=== PATIENT | male | born 1940 | race Caucasian/White ===

== ENCOUNTER 2016-11-18 18:04 | Inpatient (IN) | payer MEDICARE, BC ==
--- NOTE | 2016-11-18 19:25 | ER Document Report ---
ED Medical Screen (RME) - General Chief Complaint: Swelling Stated Complaint: ABDOMINAL AND LEG SWELLING Time Seen by Provider: 11/18/16 19:20 Information source: Patient Notes: 76-year-old male with past medical history as recorded on Eliquis who presents today with increased swelling to his legs extending to his abdomen over the last 2 weeks. He states shortness of breath. Denies any chest pain. No fevers , cough, nausea, vomiting, or diarrhea. On examination the patient has pitting edema to bilateral diffuse legs up to his lower abdomen. Heart rate 128. Decreased breath sounds bilaterally. TRAVEL OUTSIDE OF THE [place] IN LAST 30 DAYS: No - Related Data Allergies/Adverse Reactions: No Known Allergies Allergy (Verified 11/18/16 18:30) Past Medical History - Past Medical History Cardiac Medical History: Reports: Hx Hypertension Renal/ Medical History: Denies: Hx Peritoneal Dialysis Psychiatric Medical History: Reports: Hx Depression Physical Exam - Vital signs Vitals: Temp Pulse Resp BP Pulse Ox 97.4 F 128 H 20 146/91 H 94 11/18/16 18:36 11/18/16 18:36 11/18/16 18:36 11/18/16 18:36 11/18/16 18:36 Course - Vital Signs Vital signs: Temp Pulse Resp BP Pulse Ox 97.4 F 128 H 20 146/91 H 94 11/18/16 18:36 11/18/16 18:36 11/18/16 18:36 11/18/16 18:36 11/18/16 18:36
[2016-11-18 20:32] LABS: ABSOLUTE BASOPHILS # (AUTO) 0.1 10^3/uL (0.0-0.2); ABSOLUTE LYMPHOCYTES (AUTO) 0.9 10^3/uL (0.5-4.7); ABSOLUTE MONOCYTES (AUTO) 0.4 10^3/uL (0.1-1.4); BASOPHILS % (AUTO) 0.9 % (0-2); EOSINOPHILS % (AUTO) 0.3 % (0-6); HEMATOCRIT 43.1 % (37.9-51.0); HEMOGLOBIN 13.9 g/dL (13.5-17.0); HGB HCT DIFFERENCE -1.4; LYMPHOCYTES % (AUTO) 14.5 % (13-45); MEAN CORPUSCULAR HEMOGLOBIN 31.9 pg (27.0-33.4); MEAN CORPUSCULAR HGB CONC 32.3 g/dL (32.0-36.0); MEAN CORPUSCULAR VOLUME 99 fl (80-97); MONOCYTES % (AUTO) 6.6 % (3-13); RED BLOOD COUNT 4.37 10^6/uL (4.35-5.55); RED CELL DISTRIBUTION WIDTH 16.7 % (11.5-14.0); SEGMENTED NEUTROPHILS % (AUTO) 77.7 % (42-78); WHITE BLOOD COUNT 6.5 10^3/uL (4.0-10.5)
[2016-11-18 20:35] LABS: PROTHROMBIN TIME 14.9 SEC (11.4-15.4)
[2016-11-18 20:36] LABS: PARTIAL THROMBOPLASTIN TIME 33.7 SEC (23.5-35.8)
--- NOTE | 2016-11-18 20:51 | ER Document Report ---
ED General - General Chief Complaint: Swelling Stated Complaint: ABDOMINAL AND LEG SWELLING Time Seen by Provider: 11/18/16 19:20 Mode of Arrival: Ambulatory Information source: Patient TRAVEL OUTSIDE OF THE [place] IN LAST 30 DAYS: No - HPI Patient complains to provider of: edema, shortness of breath Onset: Other - 2 weeks Onset/Duration: Worse Quality of pain: Fullness, Pressure Severity: Mild Pain Level: 1 Associated symptoms: Shortness of breath Exacerbated by: Denies Relieved by: Denies Similar symptoms previously: Yes Recently seen / treated by doctor: No Notes: Patient is a 76-year-old male with a history of CHF, A. fib, COPD and hypertension, who is been off of most of his medications for at least the last 6 months to a year, who presents today complaining of lower extremity swelling and edema up to his abdomen, he reports fullness and pressure but no pain, he does report his legs hurt when he is ambulating as they are very heavy, just breath and dyspnea on exertion but denies any chest pain, no fever, no cough, cold or congestion - Related Data Allergies/Adverse Reactions: No Known Allergies Allergy (Verified 11/18/16 18:30) Past Medical History - General Information source: Patient - Social History Smoking Status: Current Every Day Smoker Chew tobacco use (# tins/day): No Frequency of alcohol use: None Drug Abuse: None Family History: Reviewed & Not Pertinent Patient has suicidal ideation: No Patient has homicidal ideation: No - Past Medical History Cardiac Medical History: Reports: Hx Hypertension Renal/ Medical History: Denies: Hx Peritoneal Dialysis Psychiatric Medical History: Reports: Hx Depression Review of Systems - Review of Systems Constitutional: No symptoms reported EENT: No symptoms reported Cardiovascular: Dyspnea, Edema Respiratory: Short of breath Gastrointestinal: No symptoms reported Genitourinary: No symptoms reported Male Genitourinary: No symptoms reported Musculoskeletal: No symptoms reported Skin: No symptoms reported Hematologic/Lymphatic: No symptoms reported Neurological/Psychological: No symptoms reported -: Yes All other systems reviewed and negative Physical Exam - Vital signs Vitals: Temp Pulse Resp BP Pulse Ox 97.4 F 128 H 20 146/91 H 94 11/18/16 18:36 11/18/16 18:36 11/18/16 18:36 11/18/16 18:36 11/18/16 18:36 Interpretation: Tachycardic - General General appearance: Alert, Other - Chronically ill-appearing In distress: None - HEENT Head: Normocephalic, Atraumatic Eyes: Normal Pupils: PERRL - Respiratory Respiratory status: No respiratory distress Chest status: Nontender Breath sounds: Rales Chest palpation: Normal - Cardiovascular Rhythm: Irregularly irregular, Tachycardia Heart sounds: Normal auscultation Murmur: No - Abdominal Inspection: Normal Distension: No distension Bowel sounds: Normal Tenderness: Nontender Organomegaly: No organomegaly - Genitourinary Scrotum: Swelling - Back Back: Normal, Nontender - Extremities General upper extremity: Normal inspection, Nontender, Normal color, Normal ROM , Normal temperature General lower extremity: Normal inspection, Nontender, Edema - Pitting edema up to patient's lower abdomen, Normal color, Normal ROM, Normal temperature, Normal weight bearing. No: Bakari's sign - Neurological Neuro grossly intact: Yes Cognition: Normal Orientation: AAOx4 [place] Coma Scale Eye Opening: Spontaneous Mayank Coma Scale Verbal: Oriented Mayank Coma Scale Motor: Obeys Commands Mayank Coma Scale Total: 15 Speech: Normal Motor strength normal: LUE, RUE, LLE, RLE Sensory: Normal - Psychological Associated symptoms: Normal affect, Normal mood - Skin Skin Temperature: Warm Skin Moisture: Dry Skin Color: Normal Skin irregularity: Erythema - Erythematous indurated excoriated skin increases of the inguinal area consistent with candidiasis Course - Re-evaluation Re-evalutation: 11/19/16 03:03 Patient was discussed with the hospitalist who agrees to admit to the [facility] for further evaluation and treatment - Vital Signs Vital signs: Temp Pulse Resp BP Pulse Ox 97.4 F 128 H 16 116/93 H 97 11/18/16 18:36 11/18/16 18:36 11/19/16 02:31 11/19/16 02:31 11/19/16 02:31 - Laboratory Result Diagrams: 11/18/16 19:40 11/18/16 19:40 Laboratory results interpreted by me: 11/18/16 11/18/16 11/18/16 19:13 19:40 19:40 MCV 99 H RDW 16.7 H Plt Count 131 L Potassium Chloride Carbon Dioxide BUN Creatinine Est GFR ( Amer) Est GFR (Non-Af Amer) Total Bilirubin Direct Bilirubin NT-Pro-B Natriuret Pep 59445 H Albumin Urine Blood MODERATE H Digoxin 11/18/16 19:40 MCV RDW Plt Count Potassium 3.3 L Chloride 96 L Carbon Dioxide 31 H BUN 30 H Creatinine 1.66 H Est GFR ( Amer) 49 L Est GFR (Non-Af Amer) 40 L Total Bilirubin 2.1 H Direct Bilirubin 1.1 H NT-Pro-B Natriuret Pep Albumin 3.4 L Urine Blood Digoxin 0.47 L - Diagnostic Test Radiology reviewed: Image reviewed, Reports reviewed - EKG Interpretation by Me Rate: Tachycardia Rhythm: A.Fib - Transfer of Care Care transferred to following provider: Dr. Ashby Critical Care Note - Critical Care Note Total time excluding time spent on procedures (mins): 60 Comments: Patient arrived in A. fib with a heart rate of 140, requiring medical treatment , multiple re-evaluations and admission to the hospitalist service Discharge - Discharge Clinical Impression: Atrial fibrillation with rapid ventricular response, Peripheral edema Condition: Fair Disposition: ADMITTED INPATIENT Admitting Provider: Hospitalist Unit Admitted: IMCU Referrals: ARSLAN MURRAY MD [Primary Care Provider] - Follow up as needed
[2016-11-18] MEDS ORDERED: DILTIAZEM HCL INJ 25 MG/5 ML VIAL IV ONE (20:54)
[2016-11-18 20:58] LABS: ALANINE AMINOTRANSFERASE 24 U/L (21-72); ALBUMIN 3.4 g/dL (3.5-5.0); ALKALINE PHOSPHATASE 97 U/L (38-126); ANION GAP 15 (5-19); ASPARTATE AMINO TRANSFERASE 25 U/L (17-59); BILIRUBIN,DIRECT 1.1 mg/dL (0.0-0.4); BILIRUBIN,TOTAL 2.1 mg/dL (0.2-1.3); BLOOD UREA NITROGEN 30 mg/dL (7-20); CALCIUM 8.9 mg/dL (8.4-10.2); CARBON DIOXIDE 31 mmol/L (22-30); CHLORIDE 96 mmol/L (98-107); CREATININE RESULT 1.66 mg/dL (0.52-1.25); DIGOXIN 0.47 ng/mL (0.8-2.0); GLUCOSE 84 mg/dL (75-110); POTASSIUM 3.3 mmol/L (3.6-5.0); SODIUM 142.4 mmol/L (137-145)
[2016-11-18 21:04] LABS: TROPONIN I 0.022 ng/mL
[2016-11-18 21:21] LABS: APPEARANCE,URINE CLEAR; BILIRUBIN,URINE NEGATIVE (NEGATIVE); GLUCOSE, URINE NEGATIVE (NEGATIVE); KETONES,URINE NEGATIVE (NEGATIVE); LEUKOCYTE ESTERASE,URINE NEGATIVE (NEGATIVE); NITRITE,URINE NEGATIVE (NEGATIVE); PROTEIN,URINE NEGATIVE (NEGATIVE); URINE SPECIFIC GRAVITY 1.008; UROBILINOGEN,URINE NEGATIVE mg/dL (<2.0)
--- NOTE | 2016-11-18 22:13 | EKG REPORT ---
SEVERITY:- ABNORMAL ECG - ATRIAL FIBRILLATION BORDERLINE LEFT AXIS DEVIATION CONSIDER ANTEROSEPTAL INFARCT NONSPECIFIC T ABNORMALITIES, LATERAL LEADS : Confirmed by: Alla Armando MD 18-Nov-2016 22:12:25
[2016-11-18] MEDS ORDERED: CEFTRIAXONE INJ 1000 MG VIAL IV ONE (22:56)
[2016-11-18] MEDS ORDERED: FUROSEMIDE INJ/PF 40 MG/4 ML SDV IV ONE (22:56)
[2016-11-19] MEDS ORDERED: DILTIAZEM HCL/D5W 125 ML IV PRN (01:47)
[2016-11-19 03:32] LABS: ADD ON TESTING BLD IN LAB ACKNOWLEDGE
[2016-11-19] MEDS ORDERED: DOCUSATE SODIUM 100 MG CAPSULE ONE (08:55)
[2016-11-19] MEDS ORDERED: FUROSEMIDE INJ/PF 40 MG/4 ML SDV ONE (08:55)
[2016-11-19] MEDS ORDERED: POTASSIUM CHLORIDE 20 MEQ/15 ML UDCUP ONE ×2 (08:56→12:12)
[2016-11-19] MEDS ORDERED: CEFTRIAXONE 1 GM/D5W RTU 1 GM/50 ML RTUPB IV ONE (08:57)
[2016-11-19] MEDS ORDERED: AZITHROMYCIN INJ 500 MG VIAL IV ONE (08:58)
[2016-11-19] MEDS ORDERED: HEPARIN SOD (PORCINE) 5,000 UNIT/ML 1 ML SYRINGE ONE (08:58)
[2016-11-19] MEDS ORDERED: METOPROLOL TARTRATE 50 MG TABLET ONE (09:15)
[2016-11-19] MEDS ORDERED: APIXABAN 2.5 MG TABLET ONE (09:19)
[2016-11-19] MEDS ORDERED: IPRATROPIUM/ALBUTEROL 0.5-2.5 MG/3 ML AMPUL NEB ONE (14:24)
--- NOTE | 2016-11-19 16:36 | HISTORY AND PHYSICAL E ---
History and Physical NAME: KATERINA FLORES : 1940 AGE: 76Y ADMITTED: 11/19/2016 ROOM: ED21 HOSPITALIST SERVICE DIAGNOSES: 1. Atrial fibrillation with rapid ventricular response, currently on Cardizem drip. 2. Bibasilar pneumonia. 3. Acute on chronic combined systolic and diastolic congestive heart failure. 4. Chronic noncompliance with medications. 5. Bilateral groin rash--neris?? 6. Large scrotal hernia. 7. Hypokalemia. 8. Acute renal failure. CHIEF COMPLAINT: Abdominal and leg swelling. PRIMARY CARE PROVIDER: Uncertain. HISTORY OF PRESENT ILLNESS: A 76-year-old male with known underlying combined diastolic and systolic congestive heart failure, with echocardiogram in 2014 revealing an ejection fraction of 15% who presents to the emergency room for above complaints. Patient has been discussed with the emergency room physician who evaluated the patient. Patient himself is extremely poor historian and appears to have poor insight at best into his medical issues. As best I can determine between review of emergency room physician notes, discussion with her, and discussion with patient, he has noted slowly progressive swelling, fullness, and pressure in his bilateral lower extremities for at least several weeks. Patient reportedly should be on metoprolol, lisinopril, Lasix, and Eliquis; has a history of chronic A-fib. However, he apparently has only been taking his Lasix for at least the last 6 months, if not longer. Denies nausea, vomiting, diarrhea, or dysuria, chest or abdominal pain, fever or chills. Was noted to be in atrial fibrillation with rapid ventricular response upon presentation. Cardizem drip was started and pulse is currently reasonably well controlled. Workup so far includes CBC with differential remarkable for a platelet count of 131,000. Unremarkable troponin. BNP elevated at 13,200. Chem-12 remarkable for a potassium of 3.3 with an estimated GFR of 40 mL/minute, with associated BUN and creatinine of 30 and 1.66 respectively. Review of prior labs reveals EGFR greater than 60 August of 2014. Total bilirubin is 2.1 with direct bilirubin 1.1. Digoxin level low at 0.47. Urinalysis remarkable for moderate blood, with 4 WBCs and 16 RBCs per high-powered field. Urine culture obtained by emergency room physician and has been sent. Portable AP chest x-ray reveals bibasilar airspace and interstitial opacities with right moderate pleural effusion, with small effusion on the left. EKG reveals atrial fibrillation, rate of 140, borderline left axis deviation, and nonspecific T-wave abnormalities in lateral leads. I have reviewed and compared to a prior tracing from August 07, 2014 revealing atrial fibrillation with a ventricular rate of 100, multiform PVCs, borderline left axis deviation, borderline T-wave abnormalities in diffuse leads with lateral leads also involved. Patient is currently resting quietly, without specific complaints other than being somewhat tired. Patient was hospitalized on our service August 06-2014 with final diagnoses including atrial fibrillation with rapid ventricular response, combined systolic and diastolic congestive heart failure, with ejection fraction of 15%. History and physical and discharge summary have been reviewed. SOCIAL HISTORY: He is a . Son lives with him. Retired. One pack of cigarettes per week. No alcohol use for many years. No illicit drug use. Surrogate health care decision maker is uncertain at this point in time. FAMILY HISTORY: Son reasonably healthy. Patient uncertain of the cause of of parents, and uncertain about the health status of siblings. SURGICAL HISTORY: 1. Hemorrhoidectomy. 2. Left inguinal herniorrhaphy. 3. Arthroscopic right knee surgery. REVIEW OF SYSTEMS: CONSTITUTIONAL: No fever or chills. EYES: Wears reading glasses. ENT: No hearing or swallowing difficulty. PULMONARY: Childhood asthma. States he still has increased difficulty breathing when it is foggy outside. Denied COPD per se. See history and present illness. CARDIOVASCULAR: See history and present illness. No history of pulmonary embolus or DVT. GASTROINTESTINAL: No current complaints or chronic gastric or biliary disease. HEMATOLOGIC: Easy bruising. MUSCULOSKELETAL: Joint pain from arthritis. PSYCHIATRIC: Mild occasional depression; denies suicidal or homicidal ideation. SKIN: No current complaints or chronic problems. NEUROLOGIC: No current complaints or prior seizure, stroke, TIA, or mini stroke. ENDOCRINE: Not diabetic. No underlying thyroid or lipid disease. GENITOURINARY: No current complaints or chronic problems, such as stones or recurrent infection. PHYSICAL EXAMINATION: VITAL SIGNS: Blood pressure 134/94, pulse 117 and slightly irregular, 99% saturation on room, respirations are 17 and unlabored. Temperature not recorded on the chart; skin feels normothermic; 6 feet 1 inches tall, 115.7 kg. BMI 33.7 kg/m2. GENERAL: On exam, he outwardly is an obese, chronically ill-appearing, male who appears approximately his stated age. Somewhat disheveled appearance. Awake, alert, pleasant, and cooperative, although somewhat fatigued in appearance. Rather talkative gentleman. Somewhat anxious, although no ervin agitation. SKIN: Warm and dry. Has what appears to be a candidal skin rash in bilateral groin region, and under his lower abdominal wall panniculus. No subcutaneous nodules palpated. Perhaps mildly hard of hearing to normal conversation. Tongue midline on protrusion, pink and slightly moist. EYES: Nettie conjunctivae. No scleral icterus. Pupils equal, round, and reactive to light and at 4 mm. NECK: Supple and nontender to gentle active and passive range of motion. LYMPHATIC: No palpable cervical or clavicular nodes. Neck and lymphatic exams limited by his body habitus. PSYCHIATRIC: Mildly anxious. No agitation. Poor insight at best into acute and chronic medical issues. LUNGS: Auscultation of the lungs reveals faint brief early expiratory wheezing bilaterally. Breath sounds are equal otherwise. HEART: Slightly irregular rate and rhythm, but without gallop, murmur, or rub. No carotid or abdominal aortic bruits. Patient has evidence of very mild bilateral symmetric, very slightly pitting thigh, calf, and ankle edema. Calf, ankle, and foot regions with the overall appearance of some shrinkage; patient has achieved good urine output with 60 mg of intravenous Lasix given by ER physician. Faintly palpable dorsalis pedis pulses. GENITOURINARY: Rather prominently swollen, but nontender scrotum. Patient states he has a known hernia. ABDOMEN: Soft, somewhat obese, nontender with positive bowel sounds. Not able to adequately evaluate abdomen for masses or organomegaly due to his body habitus. EXTREMITIES: Feet are slightly cool, but dry with acceptable capillary refill. No calf tenderness to compression. Gentle manipulation of the lower extremities fails to reveal any obvious evidence of injury or instability in knees, hips, or ankles. Patient has evidence of mild pink discoloration of the skin of both calves. However, there is no warmth or tenderness. NEUROLOGIC: Moves upper extremities grossly normally. Patellar reflexes are absent. Absent Babinski. Light touch is intact at feet. Dorsiflexion and plantarflexion of the feet 5/5 and symmetric. IMPRESSION: Elderly male, admitted for multiple above diagnoses. Patient is a FULL CODE. Strongly encouraged patient not to get out of bed without notifying staff to avoid a fall with injury. Standard CHF protocol, including parenteral Lasix and Cardiology consult. Trend troponins. Repeat echocardiogram. Pneumonia protocol, with p.r.n. Duonebs and daily Rocephin and intravenous Zithromax. Knee high SCDs and subcu heparin for DVT prophylaxis. For his groin skin rash, nystatin cream and/or powder. Scrotal hernia will be followed clinically. Potassium replacement for his hypokalemia with followup chemistry. Acute renal failure will be followed with repeat chemistry. Due to his underlying severe congestive heart failure, will forgo IV fluids at this point in time. Patient will certainly be in the hospital more than 2 midnights. Seventy four minutes spent in evaluation and management of patient. DICTATING PHYSICIAN: DORYS GARCIA M.D. [id number] PHY#: [id number] ID: [id number] JOB#: [id number] ACCT: [id number] cc:DORYS GARCIA M.D. > MTDD
[2016-11-19] MEDS ORDERED: IPRATROPIUM/ALBUTEROL 0.5-2.5 MG/3 ML AMPUL NEB PRN (18:13)
[2016-11-19] MEDS ORDERED: DILTIAZEM HCL/D5W 125 MG/125 ML RTUINJ IV PRN (18:15)
[2016-11-19] MEDS ORDERED: ACETAMINOPHEN 650 MG SUPP.RECT PR PRN (18:15)
[2016-11-19] MEDS ORDERED: HEPARIN SOD (PORCINE) 5,000 UNIT/ML 1 ML SYRINGE SUBCUT SCH (22:00)
[2016-11-19] MEDS: APIXABAN 2.5 MG TABLET PO SCH (23:21)
[2016-11-19] MEDS: METOPROLOL TARTRATE 50 MG TABLET PO SCH (23:26)
[2016-11-20] MEDS ORDERED: FUROSEMIDE INJ/PF 40 MG/4 ML SDV IV SCH (08:00)
[2016-11-20 08:21] LABS: ABSOLUTE BASOPHILS # (AUTO) 0.1 10^3/uL (0.0-0.2); ABSOLUTE EOSINOPHILS # (AUTO) 0.1 10^3/uL (0.0-0.6); ABSOLUTE LYMPHOCYTES (AUTO) 1.2 10^3/uL (0.5-4.7); ABSOLUTE MONOCYTES (AUTO) 0.6 10^3/uL (0.1-1.4); ABSOLUTE NEUT (AUTO) 4.3 10^3/uL (1.7-8.2); BASOPHILS % (AUTO) 0.9 % (0-2); EOSINOPHILS % (AUTO) 1.4 % (0-6); HEMATOCRIT 42.4 % (37.9-51.0); HEMOGLOBIN 13.6 g/dL (13.5-17.0); HGB HCT DIFFERENCE -1.6; LYMPHOCYTES % (AUTO) 18.6 % (13-45); MEAN CORPUSCULAR HEMOGLOBIN 31.7 pg (27.0-33.4); MEAN CORPUSCULAR VOLUME 99 fl (80-97); MONOCYTES % (AUTO) 9.5 % (3-13); RED BLOOD COUNT 4.28 10^6/uL (4.35-5.55); RED CELL DISTRIBUTION WIDTH 16.5 % (11.5-14.0); SEGMENTED NEUTROPHILS % (AUTO) 69.6 % (42-78); WHITE BLOOD COUNT 6.2 10^3/uL (4.0-10.5)
[2016-11-20] MEDS: CEFTRIAXONE 1 GM/D5W RTU 1 GM/50 ML RTUPB IV SCH (08:28)
--- NOTE | 2016-11-20 08:29 | PDOC PROGRESS REPORT ---
Subjective Progress Note for:: 11/20/16 Subjective:: Pt is breathing better. Denies CP, increasing SOB, diarrhea, N/V, chills or fever. Feels generally weak. Difficulty walking. Physical Exam Vital Signs: Temp Pulse Resp BP Pulse Ox 97.9 F 128 H 15 120/85 98 11/19/16 19:20 11/18/16 18:36 11/20/16 07:41 11/20/16 07:41 11/20/16 07:41 General appearance: PRESENT: no acute distress, cooperative Head exam: PRESENT: normocephalic Eye exam: PRESENT: EOMI Mouth exam: PRESENT: moist, neck supple Neck exam: ABSENT: JVD Respiratory exam: PRESENT: decreased breath sounds - R lower lung field, rhonchi - occasionally B/L. ABSENT: wheezes Cardiovascular exam: PRESENT: irregular rhythm. ABSENT: gallop GI/Abdominal exam: PRESENT: normal bowel sounds, soft. ABSENT: distended Extremities exam: PRESENT: other - trace edema Neurological exam: PRESENT: alert, awake Skin exam: PRESENT: dry, warm. ABSENT: cyanosis Results Laboratory Results: 11/19/16 06:55 11/19/16 06:55 WBC 6.2 RBC 4.28 L Hgb 13.6 Hct 42.4 MCV 99 H MCH 31.7 MCHC 32.0 RDW 16.5 H Plt Count 123 L Seg Neutrophils % 69.6 Lymphocytes % 18.6 Monocytes % 9.5 Eosinophils % 1.4 Basophils % 0.9 Absolute Neutrophils 4.3 Absolute Lymphocytes 1.2 Absolute Monocytes 0.6 Absolute Eosinophils 0.1 Absolute Basophils 0.1 Impressions: Chest X-Ray 11/18/16 19:24 IMPRESSION: Bibasilar airspace and interstitial opacities. Right moderate pleural effusion, small effusion on the left. Assessment & Plan - Diagnosis (1) Pneumonia Qualifiers: Pneumonia type: due to unspecified organism Laterality: bilateral Lung location: lower lobe of lung Qualified Code(s): J18.9 - Pneumonia, unspecified organism Is this a current diagnosis for this admission?: Yes (2) Pleural effusion Is this a current diagnosis for this admission?: Yes (3) Atrial fibrillation with rapid ventricular response Is this a current diagnosis for this admission?: Yes (4) Acute CHF (congestive heart failure) Qualifiers: Congestive heart failure type: combined Qualified Code(s): I50.41 - Acute combined systolic (congestive) and diastolic (congestive) heart failure Is this a current diagnosis for this admission?: Yes (5) Essential hypertension Is this a current diagnosis for this admission?: Yes (6) Depression Qualifiers: Depression Type: unspecified Qualified Code(s): F32.9 - Major depressive disorder, single episode, unspecified Is this a current diagnosis for this admission?: Yes - Time Time Spent with patient: 25-34 minutes - Plan Summary Plan Summary: Begin oral cardizem. Cont metoprolol. Wean IV cardizem to off. Cont. diuretics and antibx. Monitor electrolytes.
[2016-11-20] MEDS ORDERED: DILTIAZEM HCL 30 MG TABLET PO ONE (08:45)
[2016-11-20] MEDS ORDERED: AZITHROMYCIN 500 MG in DEXTROSE 5%-WATER 250 ML IV SCH (10:00)
[2016-11-20] MEDS: METOPROLOL TARTRATE 50 MG TABLET PO SCH (11:15)
[2016-11-20] MEDS: DOCUSATE SODIUM 100 MG CAPSULE PO SCH (11:16)
[2016-11-20] MEDS: APIXABAN 2.5 MG TABLET PO SCH ×2 (11:17→21:52)
[2016-11-20] MEDS: NYSTATIN CREAM 15 GM TP SCH ×2 (11:28→18:31)
[2016-11-20] MEDS: DILTIAZEM HCL 30 MG TABLET PO SCH ×2 (12:24→17:33)
--- NOTE | 2016-11-20 13:41 | XCELERA REPORT ---
[address] [address] Transthoracic Echocardiogram Report Name: KATERINA FLORES Age: 76 yrs Gender: Male : 1940 Patient Status: Inpatient Patient Location: \S\19\S\A Study Date: 11/20/2016 11:03 AM Height: 73 in Weight: 255 lb BSA: 2.4 m2 Procedure: A complete two-dimensional transthoracic echocardiogram was performed (2D, M-mode, spectral and color flow Doppler). The study was technically adequate with some images being suboptimal in quality. Reason For Study: ACS, CHF Ordering Physician: DORYS GARCIA Performed By: Lacey Nolan Interpretation Summary Left ventricular systolic function is severely reduced. The Ejection Fraction estimate is <20% The left ventricle is moderately dilated. There is mild concentric left ventricular hypertrophy. There is severe global hypokinesis of the left ventricle. Doppler measurements suggest pseudonormalized left ventricular relaxation, which is associated with grade II/IV or mild to moderate diastolic dysfunction The right ventricle is moderately dilated. The right ventricular systolic function is moderately reduced. The right atrium is severely dilated. The left atrium is severely dilated. There is a mild amount of mitral regurgitation There is no mitral valve stenosis. No aortic regurgitation is present. There is no aortic valve stenosis There is a mild to moderate amount of tricuspid regurgitation There is mild to moderate pulmonary hypertension by echo Right ventricular systolic pressure is estimated to be elevated at 40- 50mmHg. The aortic root is not well visualized but is probably normal size. The inferior vena cava appeared normal and decreased > 50% with respiration (RAP 5-10 mmHg) There is no pericardial effusion. MMode/2D Measurements \T\ Calculations RVDd: 4.0 cm LVIDd: 6.9 cm FS: 6.4 % EPSS: 1.3 cm IVSd: 1.2 cm LVIDs: 6.5 cm EDV(Teich): 250.3 ml LVPWd: 1.3 cm ESV(Teich): 215.3 ml EF(Teich): 14.0 % Ao root diam: 3.8 cm LVOT diam: 2.6 cm Ao root area: 11.1 cm2 LVOT area: 5.3 cm2 LA dimension: 5.2 cm Doppler Measurements \T\ Calculations MV E max teddy: MV P1/2t max teddy: Ao V2 max: LV V1 max P.1 cm/sec 111.6 cm/sec 139.4 cm/sec 3.7 mmHg MV P1/2t: 56.2 msec Ao max PG: LV V1 max: MVA(P1/2t): 3.9 cm2 7.8 mmHg 95.8 cm/sec MV dec slope: CHIKIS(V,D): 3.6 cm2 581.5 cm/sec2 PA V2 max: TR max teddy: 81.0 cm/sec 322.5 cm/sec PA max P.6 mmHgTR max P.6 mmHg Left Ventricle The left ventricle is moderately dilated. There is mild concentric left ventricular hypertrophy. Left ventricular systolic function is severely reduced. The Ejection Fraction estimate is <20%. Doppler measurements suggest pseudonormalized left ventricular relaxation, which is associated with grade II/IV or mild to moderate diastolic dysfunction. There is severe global hypokinesis of the left ventricle. Right Ventricle The right ventricle is moderately dilated. There is normal right ventricular wall thickness. The right ventricular systolic function is moderately reduced. Atria The right atrium is severely dilated. The left atrium is severely dilated. Interarterial septum not well visualized and not well dopplered. Cannot comment on ASD/PFO presence. Mitral Valve The mitral valve leaflets are sclerotic, but show no functional abnormalities. There is no mitral valve stenosis. There is a mild amount of mitral regurgitation. Aortic Valve The aortic valve is not well visualized secondary to technical limitations. The aortic valve opens well. There is no aortic valve stenosis. No aortic regurgitation is present. Tricuspid Valve The tricuspid valve is not well visualized, but is grossly normal. There is no tricuspid stenosis. There is a mild to moderate amount of tricuspid regurgitation. There is mild to moderate pulmonary hypertension by echo. Right ventricular systolic pressure is estimated to be elevated at 40- 50mmHg. Pulmonic Valve The pulmonic valve is not well visualized. Great Vessels The aortic root is not well visualized but is probably normal size. The inferior vena cava appeared normal and decreased > 50% with respiration (RAP 5-10 mmHg). Effusions There is no pericardial effusion. : DORYS GARCIA > Ashtyn Rubio
[2016-11-20 17:13] LABS: BLOOD UREA NITROGEN 31 mg/dL (7-20); CALCIUM 8.9 mg/dL (8.4-10.2); CREATININE RESULT 1.42 mg/dL (0.52-1.25); GLUCOSE 84 mg/dL (75-110)
[2016-11-20 17:17] LABS: POTASSIUM 2.9 mmol/L (3.6-5.0)
[2016-11-20 17:18] LABS: ALANINE AMINOTRANSFERASE 25 U/L (21-72); ALBUMIN 3.1 g/dL (3.5-5.0); ALKALINE PHOSPHATASE 87 U/L (38-126); ANION GAP 11 (5-19); ASPARTATE AMINO TRANSFERASE 25 U/L (17-59); CARBON DIOXIDE 33 mmol/L (22-30); CHLORIDE 97 mmol/L (98-107); SODIUM 141.3 mmol/L (137-145)
[2016-11-20 17:19] LABS: BILIRUBIN,DIRECT 1.2 mg/dL (0.0-0.4); BILIRUBIN,TOTAL 2.3 mg/dL (0.2-1.3); TOTAL PROTEIN 6.9 g/dL (6.3-8.2)
[2016-11-20] MEDS: FUROSEMIDE INJ/PF 40 MG/4 ML SDV IV SCH (17:32)
[2016-11-20] MEDS ORDERED: DIGOXIN 0.25 MG TABLET PO ONE (17:44)
--- NOTE | 2016-11-20 17:44 | PDOC CONSULTATION ---
Consultation Consult Date: 11/19/16 Attending physician:: KARTIK WRIGHT Consult reason:: Congestive heart failure, atrial fibrillation History of Present Illness Admission Date/PCP: 11/19/16 03:17 ARSLAN MURRAY MD Patient complains of: Shortness of breath, fatigue and tiredness History of Present Illness: KATERINA FLORES is a 76 year old male, who was seen yesterday in the emergency room when he was in bed 21. Because of difficulty with STYLIGHT system, patient fell off my list although orders were entered handwritten, when patient was seen yesterday. Patient had presented to the emergency room with progressive increased shortness of breath, fatigue and tiredness. He was noted to be in severe congestive heart failure. He was also noted to be hypoxemic on oxygen saturation monitor. He was noted to have atrial fibrillation with rapid ventricular response. I was asked to evaluate him and help with management. A 2D echo was ordered. Patient was already started on IV Lasix. In gives history of long-standing irregular heartbeat. Review of records shows that patient had atrial fibrillation in 2015 by EKGs. Patient also was noted to have severe systolic dysfunction along with significant diastolic dysfunction on an echocardiogram at that time. Patient has noted improvement in his symptoms since his visit to the emergency room. Past Medical History Cardiac Medical History: Reports: Atrial Fibrillation - Patient however not on chronic anticoagulation., Hypertension Psychiatric Medical History: Reports: Depression Past Surgical History Past Surgical History: Reports: Other - Left inguinal hernia surgery, arthroscopic surgery of the right knee. Social History Information Source: Patient Smoking Status: Current Every Day Smoker Number of Years Smokin Frequency of Alcohol Use: None Hx Recreational Drug Use: No Hx Prescription Drug Abuse: No - Advance Directive Resuscitation Status: Full Code Family History Family History: Reviewed & Not Pertinent, Hypertension Parental Family History Reviewed: Yes Children Family History Reviewed: Yes Sibling(s) Family History Reviewed.: Yes Medication/Allergy Home Medications: No Home Medications 11/19/16 Allergies/Adverse Reactions: No Known Allergies Allergy (Verified 11/18/16 18:30) Review of Systems Review of Systems: Please see history of present illness and past medical history as wall. Constitutional: No fever or chills reported. Noted increased fatigue and tiredness. Head : No recent chronic headaches, recent head injury. Eyes: No recent eye pain, diplopia, redness, discharge, acute visual changes. Ears: No recent chronic ear pain, acute hearing loss, ear discharge. Oral cavity: No recent ulcerations, bleeding, oral cavity discomfort. Neck: No recent acute neck pain reported. Hematologic: No recent easy bruising or bleeding or hematologic malignancy reported. Lymphatic: No recent lymphatic malignancy, chronic lymphadenopathy reported yet Cardiovascular system review: See history of present illness. Respiratory system review: No recent chronic cough, hemoptysis, blood clots in the lungs reported. Increasing shortness of breath on exertion and pedal edema. Gives history of childhood asthma. Gastrointestinal system review: Negative for any recent acute or chronic abdominal pain, hematemesis, melena, recent change in bowel habits. History of inguinal hernia Genitourinary system review: No recent acute or chronic hematuria, flank pain, UTI etc. reported. Skin system review: Negative for any recent abnormal bruising, no rash, no pruritus reported. Neurologic: No prior history of strokes, questionable history of mini strokes but no definite history of strokes. Psychologic: No history of major psychosis or major depression reported. Musculoskeletal: Minor aches and pains reported. No acute joint swelling reported. Endocrine: No recent polyuria, polydipsia, recent heat or cold intolerance. Physical Exam Vital Signs: Temp Pulse Resp BP Pulse Ox 97.4 F 73 20 109/81 94 11/20/16 16:03 11/20/16 16:15 11/20/16 16:03 11/20/16 16:03 11/20/16 16:03 Exam: GENERAL: well-nourished and in no acute distress. Alert and oriented x3 HEAD: Atraumatic, normocephalic. EYES: Pupils equal round and reactive to light, extraocular movements intact, sclera anicteric, conjunctiva are normal. ENT: TMs normal, nares patent, oropharynx clear without exudates. Moist mucous membranes. No oral ulcerations or bleeding gums noted NECK: supple without lymphadenopathy. Trachea is central. No cervical or axillary lymphadenopathy noted. Carotids are 2+, JVD 12-14 cm LUNGS: Respiration seems nonlabored, bibasilar fine crackles noted up to 1/[address] up. No wheezes rales or rhonchi noted. No significant dullness noted on percussion. CHEST: Palpation of the chest wall shows no significant chest wall tenderness. No other significant abnormalities noted. 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 ABDOMEN: Soft, no significant tenderness appreciated, normoactive bowel sounds. No guarding, no rebound. No rigidity noted No masses appreciated. Scrotum vey swollen. EXTREMITIES: Pedal pulses are 1-2+, no calf tenderness noted. No clubbing or cyanosis. 3+ + pedal edema noted NEUROLOGICAL: Focused neurological exam showed no significant neurologic deficit. Normal speech, no focal weakness appreciated. PSYCH: Normal mood, normal affect. Judgment and insight within normal limits. SKIN: No significant ecchymosis, rash, ulcerations or signs of pruritus noted. MUSCULOSKELETAL EXAM: No significant joint swelling noted. Results Laboratory Results: 11/19/16 06:55 11/19/16 06:55 11/19/16 11/19/16 06:55 06:55 WBC 6.2 RBC 4.28 L Hgb 13.6 Hct 42.4 MCV 99 H MCH 31.7 MCHC 32.0 RDW 16.5 H Plt Count 123 L Seg Neutrophils % 69.6 Lymphocytes % 18.6 Monocytes % 9.5 Eosinophils % 1.4 Basophils % 0.9 Absolute Neutrophils 4.3 Absolute Lymphocytes 1.2 Absolute Monocytes 0.6 Absolute Eosinophils 0.1 Absolute Basophils 0.1 Sodium 141.3 Potassium 2.9 L* Chloride 97 L Carbon Dioxide 33 H Anion Gap 11 BUN 31 H Creatinine 1.42 H Est GFR ( Amer) 58 L Est GFR (Non-Af Amer) 48 L Glucose 84 Calcium 8.9 Total Bilirubin 2.3 H AST 25 ALT 25 Alkaline Phosphatase 87 Total Protein 6.9 Albumin 3.1 L 11/19/16 11/19/16 06:55 13:34 Troponin I 0.028 0.028 EKG Comments: Atrial fibrillation with rapid ventricular response. Minor nonspecific T-wave changes noted. Impressions: Chest X-Ray 11/18/16 19:24 IMPRESSION: Bibasilar airspace and interstitial opacities. Right moderate pleural effusion, small effusion on the left. Status: Image reviewed by me - Chest x-ray reviewed by me shows cardiomegaly, bilateral pleural effusion right more than left and pulmonary venous congestion. Findings consistent with CHF. Assessment & Plan - Diagnosis (1) Acute on chronic systolic CHF (congestive heart failure) Is this a current diagnosis for this admission?: Yes (2) Atrial fibrillation with rapid ventricular response Is this a current diagnosis for this admission?: Yes (3) Essential hypertension Is this a current diagnosis for this admission?: Yes (4) Peripheral edema Is this a current diagnosis for this admission?: Yes (5) Pleural effusion Is this a current diagnosis for this admission?: Yes - Notes Notes: Acute on chronic systolic CHF: Patient has history of severe systolic dysfunction and also significant diastolic dysfunction. This seems to be significant worsening recently of CHF symptoms. At this point would recommend aggressive diuresis, PETR inhibitor, beta-keya, digoxin therapy. Would also repeat an 2D echocardiogram to evaluate as to any other cause for acute exacerbation. Most likely precipitated by atrial fibrillation with rapid ventricular response and volume overload. Atrial fibrillation with rapid ventricular response: Patient has history of chronic atrial fibrillation. May need to revisit chronic anticoagulation and recommend this again. For rate control will recommend to digoxin and beta- keya. Hypertension: Reasonably well controlled. Blood pressure goal in this patient is 135/85 or less. This was discussed with the patient. Currently blood pressure under reasonable control. Better medication for this patient are PETR inhibitor/ARB/beta keya etc. discussed side effects of uncontrolled hypertension and also severe hypotension Peripheral edema: Mostly related to CHF. Will recommend ruling out hypoalbuminemia. Bilateral pleural effusion: Related to CHF. Patient's medical regimen reviewed. Will gradually escalate management. Patient may eventually need to be considered for prophylactic defibrillator placement especially if his EF is still low. CODE STATUS was discussed, patient remains full code. Surrogate decision-maker unchanged. Multiple medical problems were addressed. - Time Time Spent: 50 to 70 Minutes - CODE STATUS was discussed, patient remains full code. Surrogate decision-maker unchanged. Multiple medical problems were addressed. More than 50% of the time spent coordinating care, discussing management plans with involved caregivers. Management plans discussed with involved personnels. Medical decision making was of moderate to high complexity , patient's has multiple severe comorbidities. Medications reviewed and adjusted accordingly: Yes
--- NOTE | 2016-11-20 17:47 | PDOC PROGRESS REPORT ---
Subjective Progress Note for:: 11/20/16 Subjective:: Breathing better. No CP, nausea, vomiting, chills or fever. No diarrhea. HR is controlled in 70s as reported. Echo report discussed. Still has significant edema and possibly ascitis, significant scrotal edema noted. Telemetry strip showed atrial fibrillation better controlled heart rate. Physical Exam Vital Signs: Temp Pulse Resp BP Pulse Ox 97.4 F 73 20 109/81 94 11/20/16 16:03 11/20/16 16:15 11/20/16 16:03 11/20/16 16:03 11/20/16 16:03 Exam: GENERAL: well-nourished and in no acute distress. Alert and oriented x3. Intermittent confusion reported by the nurses. HEAD: Atraumatic, normocephalic. EYES: Pupils equal round and reactive to light, extraocular movements intact, sclera anicteric, conjunctiva are normal. ENT: TMs normal, nares patent, oropharynx clear without exudates. Moist mucous membranes. No oral ulcerations or bleeding gums noted NECK: supple without lymphadenopathy. Trachea is central. No cervical or axillary lymphadenopathy noted. Carotids are 2+, JVD 12-14 cm LUNGS: Respiration seems nonlabored, bibasilar fine crackles. No wheezes rales or rhonchi noted. Mild right dullness noted on percussion. CHEST: Palpation of the chest wall shows no significant chest wall tenderness. No other significant abnormalities noted. 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 ABDOMEN: Soft, no significant tenderness appreciated, normoactive bowel sounds. No guarding, no rebound. No rigidity noted No masses appreciated. Scrotum vey swollen. EXTREMITIES: Pedal pulses are 1-2+, no calf tenderness noted. No clubbing or cyanosis. 3+ + pedal edema noted NEUROLOGICAL: Focused neurological exam showed no significant neurologic deficit. Normal speech, no focal weakness appreciated. PSYCH: Normal mood, normal affect. Judgment and insight within normal limits. SKIN: No significant ecchymosis, rash, ulcerations or signs of pruritus noted. MUSCULOSKELETAL EXAM: No significant joint swelling noted. Results Laboratory Results: 11/19/16 06:55 11/19/16 11/19/16 06:55 06:55 WBC 6.2 RBC 4.28 L Hgb 13.6 Hct 42.4 MCV 99 H MCH 31.7 MCHC 32.0 RDW 16.5 H Plt Count 123 L Seg Neutrophils % 69.6 Lymphocytes % 18.6 Monocytes % 9.5 Eosinophils % 1.4 Basophils % 0.9 Absolute Neutrophils 4.3 Absolute Lymphocytes 1.2 Absolute Monocytes 0.6 Absolute Eosinophils 0.1 Absolute Basophils 0.1 Sodium 141.3 Potassium 2.9 L* Chloride 97 L Carbon Dioxide 33 H Anion Gap 11 BUN 31 H Creatinine 1.42 H Est GFR ( Amer) 58 L Est GFR (Non-Af Amer) 48 L Glucose 84 Calcium 8.9 Total Bilirubin 2.3 H AST 25 ALT 25 Alkaline Phosphatase 87 Total Protein 6.9 Albumin 3.1 L 11/19/16 11/19/16 06:55 13:34 Troponin I 0.028 0.028 Impressions: Chest X-Ray 11/18/16 19:24 IMPRESSION: Bibasilar airspace and interstitial opacities. Right moderate pleural effusion, small effusion on the left. Assessment & Plan - Diagnosis (2) Atrial fibrillation with rapid ventricular response Is this a current diagnosis for this admission?: Yes (3) Essential hypertension Is this a current diagnosis for this admission?: Yes (5) Pleural effusion Is this a current diagnosis for this admission?: Yes - Notes Notes: Acute on chronic systolic CHF: Patient has history of severe systolic dysfunction and also significant diastolic dysfunction. This seems to be significant worsening recently of CHF symptoms.Patient being placed on spironolactone, digoxin, switch to metoprolol succinate. Stop diltiazem in view of severe LV systolic dysfunction. Atrial fibrillation with rapid ventricular response: Patient has history of chronic atrial fibrillation. May need to revisit chronic anticoagulation and recommend this again. For rate control will recommend to digoxin and beta- keya. Patient instituted on these. Hypertension: Reasonably well controlled. Blood pressure goal in this patient is 135/85 or less. This was discussed with the patient. Currently blood pressure under reasonable control. Better medication for this patient are PETR inhibitor/ARB/beta keya etc. discussed side effects of uncontrolled hypertension and also severe hypotension Peripheral edema: Mostly related to CHF. Will recommend ruling out hypoalbuminemia. Bilateral pleural effusion: Related to CHF. Patient's medical regimen reviewed. Will gradually escalate management. Patient may eventually need to be considered for prophylactic defibrillator placement especially if his EF is still low. CODE STATUS was discussed, patient remains full code. Surrogate decision-maker patient's son. Multiple medical problems were addressed. Echocardiogram was ordered. - Time Time with patient: Greater than 35 minutes - CODE STATUS was discussed, patient remains full code. Surrogate decision-maker patient's son. Multiple medical problems were addressed. More than 50% of the time spent coordinating care, discussing management plans with involved caregivers. Management plans discussed with involved personnels. Medical decision making was of moderate to high complexity, patient's has multiple comorbidities. Medications reviewed and adjusted accordingly: Yes
[2016-11-20] MEDS: POTASSI CL 20 MEQ/50 ML RIDER 50 ML IV SCH ×3 (20:18→23:30)
[2016-11-20] MEDS: METOPROLOL SUCCINATE 50 MG TAB.SR.24H PO SCH (21:52)
[2016-11-21] MEDS: FUROSEMIDE INJ/PF 40 MG/4 ML SDV IV SCH (05:32)
[2016-11-21 06:57] LABS: HEMATOCRIT 41.1 % (37.9-51.0); HEMOGLOBIN 13.4 g/dL (13.5-17.0); HGB HCT DIFFERENCE -0.9; MEAN CORPUSCULAR HEMOGLOBIN 32.7 pg (27.0-33.4); MEAN CORPUSCULAR HGB CONC 32.6 g/dL (32.0-36.0); MEAN CORPUSCULAR VOLUME 100 fl (80-97); RED BLOOD COUNT 4.11 10^6/uL (4.35-5.55); RED CELL DISTRIBUTION WIDTH 16.4 % (11.5-14.0); WHITE BLOOD COUNT 5.8 10^3/uL (4.0-10.5)
[2016-11-21 07:19] LABS: ANION GAP 11 (5-19); BLOOD UREA NITROGEN 28 mg/dL (7-20); CALCIUM 8.5 mg/dL (8.4-10.2); CARBON DIOXIDE 37 mmol/L (22-30); CHLORIDE 95 mmol/L (98-107); CREATININE RESULT 1.21 mg/dL (0.52-1.25); GLUCOSE 86 mg/dL (75-110); SODIUM 143.2 mmol/L (137-145)
[2016-11-21 07:32] LABS: POTASSIUM 2.8 mmol/L (3.6-5.0)
[2016-11-21] MEDS: CEFTRIAXONE 1 GM/D5W RTU 1 GM/50 ML RTUPB IV SCH (08:05)
--- NOTE | 2016-11-21 09:19 | PDOC PROGRESS REPORT ---
Subjective Progress Note for:: 11/21/16 Subjective:: Breathing better. No CP, nausea, vomiting, chills or fever. No diarrhea. HR is controlled in 70s as reported. Physical Exam Vital Signs: Temp Pulse Resp BP Pulse Ox 97.2 F 115 H 19 119/58 L 92 11/21/16 07:33 11/21/16 07:33 11/21/16 07:33 11/21/16 07:33 11/21/16 07:33 Intake & Output 11/20/16 11/21/16 11/22/16 06:59 06:59 06:59 Intake Total 281 Output Total 1250 Balance -969 Weight 113.3 kg 112.3 kg General appearance: PRESENT: no acute distress, cooperative Head exam: PRESENT: normocephalic Eye exam: PRESENT: EOMI Mouth exam: PRESENT: moist, neck supple Neck exam: ABSENT: JVD Respiratory exam: PRESENT: clear to auscultation kiera - anteriorly. ABSENT: rhonchi, wheezes Cardiovascular exam: PRESENT: irregular rhythm. ABSENT: gallop GI/Abdominal exam: PRESENT: soft. ABSENT: distended, tenderness Extremities exam: PRESENT: +1 edema Neurological exam: PRESENT: alert, awake, oriented to situation Skin exam: PRESENT: dry, warm. ABSENT: cyanosis Results Laboratory Results: 11/21/16 06:02 11/21/16 06:02 11/19/16 11/20/16 11/21/16 06:55 17:58 06:02 WBC 5.8 RBC 4.11 L Hgb 13.4 L Hct 41.1 MCV 100 H MCH 32.7 MCHC 32.6 RDW 16.4 H Plt Count 117 L Sodium 141.3 Potassium 2.9 L* 2.7 L* Chloride 97 L Carbon Dioxide 33 H Anion Gap 11 BUN 31 H Creatinine 1.42 H Est GFR ( Amer) 58 L Est GFR (Non-Af Amer) 48 L Glucose 84 Calcium 8.9 Total Bilirubin 2.3 H AST 25 ALT 25 Alkaline Phosphatase 87 Total Protein 6.9 Albumin 3.1 L 11/21/16 06:02 WBC RBC Hgb Hct MCV MCH MCHC RDW Plt Count Sodium 143.2 Potassium 2.8 L* Chloride 95 L Carbon Dioxide 37 H Anion Gap 11 BUN 28 H Creatinine 1.21 Est GFR ( Amer) > 60 Est GFR (Non-Af Amer) 58 L Glucose 86 Calcium 8.5 Total Bilirubin AST ALT Alkaline Phosphatase Total Protein Albumin 11/19/16 11/19/16 06:55 13:34 Troponin I 0.028 0.028 Impressions: Chest X-Ray 11/18/16 19:24 IMPRESSION: Bibasilar airspace and interstitial opacities. Right moderate pleural effusion, small effusion on the left. Assessment & Plan - Diagnosis (1) Pneumonia Qualifiers: Pneumonia type: due to unspecified organism Laterality: bilateral Lung location: lower lobe of lung Qualified Code(s): J18.9 - Pneumonia, unspecified organism Is this a current diagnosis for this admission?: Yes (2) Pleural effusion Is this a current diagnosis for this admission?: Yes (3) Atrial fibrillation with rapid ventricular response Is this a current diagnosis for this admission?: Yes (4) Acute CHF (congestive heart failure) Qualifiers: Congestive heart failure type: combined Qualified Code(s): I50.41 - Acute combined systolic (congestive) and diastolic (congestive) heart failure Is this a current diagnosis for this admission?: Yes (5) Essential hypertension Is this a current diagnosis for this admission?: Yes (6) Depression Qualifiers: Depression Type: unspecified Qualified Code(s): F32.9 - Major depressive disorder, single episode, unspecified Is this a current diagnosis for this admission?: Yes - Time Time Spent with patient: 25-34 minutes - Plan Summary Plan Summary: Consult cardiology for cardiomyopathy. Cont. b-keya. Digoxin added. Replace K and recheck electrolytes in am. D/C cardizem drip. Shift to oral antibiotics. Decrease lasix. Cont. other meds and supportive care.
[2016-11-21] MEDS: POTASSIUM CHLORIDE 20 MEQ/50 ML RTU IV SCH ×4 (09:22→16:13)
[2016-11-21] MEDS: METOPROLOL SUCCINATE 50 MG TAB.SR.24H PO SCH ×2 (09:23→21:34)
[2016-11-21] MEDS: DOCUSATE SODIUM 100 MG CAPSULE PO SCH ×2 (09:23→17:28)
[2016-11-21] MEDS: NYSTATIN CREAM 15 GM TP SCH ×2 (09:23→17:28)
[2016-11-21] MEDS: DIGOXIN 0.125 MG TABLET PO SCH (09:24)
[2016-11-21] MEDS: APIXABAN 2.5 MG TABLET PO SCH ×2 (09:25→21:32)
[2016-11-21] MEDS: LEVOFLOXACIN 750 MG TABLET PO SCH (09:27)
[2016-11-21] MEDS: SPIRONOLACTONE 25 MG TABLET PO SCH (09:28)
[2016-11-21 09:56] LABS: MAGNESIUM 2.3 mg/dL (1.6-2.3)
[2016-11-21] MEDS ORDERED: SPIRONOLACTONE 25 MG TABLET PO SCH (10:00)
[2016-11-21] MEDS: ACETAMINOPHEN 325 MG TABLET PO PRN (18:44)
[2016-11-22 05:03] LABS: ANION GAP 9 (5-19); BLOOD UREA NITROGEN 24 mg/dL (7-20); CALCIUM 8.7 mg/dL (8.4-10.2); CARBON DIOXIDE 37 mmol/L (22-30); CHLORIDE 96 mmol/L (98-107); GLUCOSE 95 mg/dL (75-110); SODIUM 141.8 mmol/L (137-145)
[2016-11-22 05:10] LABS: POTASSIUM 2.9 mmol/L (3.6-5.0)
[2016-11-22] MEDS ORDERED: POTASSIUM CHLORIDE 20 MEQ/15 ML UDCUP PO ONE (05:35)
[2016-11-22 05:38] LABS: ADD ON TESTING BLD IN LAB ACKNOWLEDGE
[2016-11-22 05:46] LABS: MAGNESIUM 1.8 mg/dL (1.6-2.3)
[2016-11-22] MEDS: POTASSIUM CHLORIDE 20 MEQ/15 ML UDCUP PO SCH ×4 (09:21→14:19)
[2016-11-22] MEDS: SPIRONOLACTONE 25 MG TABLET PO SCH (09:21)
[2016-11-22] MEDS: METOPROLOL SUCCINATE 50 MG TAB.SR.24H PO SCH ×2 (09:21→21:13)
[2016-11-22] MEDS: FUROSEMIDE INJ/PF 40 MG/4 ML SDV IV SCH (09:21)
[2016-11-22] MEDS: DIGOXIN 0.125 MG TABLET PO SCH (09:21)
[2016-11-22] MEDS: LEVOFLOXACIN 750 MG TABLET PO SCH (09:21)
[2016-11-22] MEDS: DOCUSATE SODIUM 100 MG CAPSULE PO SCH ×2 (09:21→12:50)
[2016-11-22] MEDS: APIXABAN 2.5 MG TABLET PO SCH ×2 (09:22→21:13)
[2016-11-22] MEDS: NYSTATIN CREAM 15 GM TP SCH ×2 (09:22→18:21)
--- NOTE | 2016-11-22 10:39 | PDOC PROGRESS REPORT ---
Subjective Progress Note for:: 11/22/16 Subjective:: Breathing better. Scrotum still large but less tight per patient. No chills or gever. No CP. No PND/orthopnea. Physical Exam Vital Signs: Temp Pulse Resp BP Pulse Ox 98.0 F 79 17 114/81 99 11/22/16 07:27 11/22/16 07:27 11/22/16 07:27 11/22/16 07:27 11/22/16 07:27 Intake & Output 11/21/16 11/22/16 11/23/16 06:59 06:59 06:59 Intake Total 281 2014 Output Total 1250 2150 Balance -969 -135 Weight 113.3 kg 113.7 kg General appearance: PRESENT: no acute distress, cooperative Head exam: PRESENT: normocephalic Eye exam: PRESENT: EOMI Mouth exam: PRESENT: moist, neck supple Neck exam: ABSENT: JVD Respiratory exam: PRESENT: clear to auscultation kiera. ABSENT: rhonchi, wheezes Cardiovascular exam: PRESENT: irregular rhythm, RRR. ABSENT: gallop GI/Abdominal exam: PRESENT: soft. ABSENT: distended, tenderness Gentrourinary exam: PRESENT: scrotal swelling Extremities exam: PRESENT: other - trace edema B/L Neurological exam: PRESENT: alert, awake, oriented to situation Skin exam: PRESENT: dry, warm. ABSENT: cyanosis Results Laboratory Results: 11/21/16 06:02 11/22/16 04:17 11/22/16 11/22/16 04:17 04:17 Sodium 141.8 Potassium 2.9 L* Chloride 96 L Carbon Dioxide 37 H Anion Gap 9 BUN 24 H Creatinine 1.00 Est GFR ( Amer) > 60 Est GFR (Non-Af Amer) > 60 Glucose 95 Calcium 8.7 Magnesium 1.8 11/19/16 11/19/16 06:55 13:34 Troponin I 0.028 0.028 Impressions: Chest X-Ray 11/18/16 19:24 IMPRESSION: Bibasilar airspace and interstitial opacities. Right moderate pleural effusion, small effusion on the left. Assessment & Plan - Diagnosis (1) Pneumonia Qualifiers: Pneumonia type: due to unspecified organism Laterality: bilateral Lung location: lower lobe of lung Qualified Code(s): J18.9 - Pneumonia, unspecified organism Is this a current diagnosis for this admission?: Yes (2) Pleural effusion Is this a current diagnosis for this admission?: Yes (3) Atrial fibrillation with rapid ventricular response Is this a current diagnosis for this admission?: Yes (4) Acute CHF (congestive heart failure) Qualifiers: Congestive heart failure type: combined Qualified Code(s): I50.41 - Acute combined systolic (congestive) and diastolic (congestive) heart failure Is this a current diagnosis for this admission?: Yes (5) Essential hypertension Is this a current diagnosis for this admission?: Yes (6) Depression Qualifiers: Depression Type: unspecified Qualified Code(s): F32.9 - Major depressive disorder, single episode, unspecified Is this a current diagnosis for this admission?: Yes - Time Time Spent with patient: 25-34 minutes - Plan Summary Plan Summary: Cont. lasix. Add zaroxolyn. Begin augmentin and D/C levaquin. Replace K and monitor electrolytres.
[2016-11-22] MEDS ORDERED: AMOXICILLIN TR/POT CLAVULANATE 500-125 MG TAB PO ONE (11:30)
[2016-11-22] MEDS ORDERED: METOLAZONE 2.5 MG TABLET PO ONE (11:30)
[2016-11-22] MEDS ORDERED: LISINOPRIL 5 MG TABLET PO ONE (11:30)
[2016-11-22] MEDS: AMOXICILLIN TR/POT CLAVULANATE 500-125 MG TAB PO SCH (16:41)
[2016-11-22] MEDS: POTASSIUM CHLORIDE 10 MEQ TABLET.SA PO SCH ×2 (16:42→21:12)
[2016-11-22] MEDS ORDERED: POTASSIUM CHLORIDE 10 MEQ TABLET.SA PO SCH (17:00)
[2016-11-22] MEDS ORDERED: POTASSIUM CHLORIDE 10 MEQ TABLET.SA PO ONE (21:00)
--- NOTE | 2016-11-22 22:23 | PDOC PROGRESS REPORT ---
Subjective Progress Note for:: 11/22/16 Subjective:: Breathing better. No CP, nausea, vomiting, chills or fever.. HR is controlled in 70s as reported. Echo report discussed. Edema seems to have improved but still remains. The scrotum remained severely swollen. Patient today concerned about scrotal swelling. Physical Exam Vital Signs: Temp Pulse Resp BP Pulse Ox 98.1 F 99 20 111/56 L 89 L 11/22/16 19:14 11/22/16 19:15 11/22/16 19:14 11/22/16 19:14 11/22/16 19:14 Intake & Output 11/21/16 11/22/16 11/23/16 06:59 06:59 06:59 Intake Total 281 2014 136 Output Total 125 215 3350 Balance -969 -135 1606 Weight 113.3 kg 113.7 kg General appearance: PRESENT: well-developed, well-nourished Head exam: PRESENT: atraumatic, normocephalic Eye exam: PRESENT: conjunctiva pink, EOMI, PERRLA. ABSENT: scleral icterus Ear exam: PRESENT: normal external ear exam Mouth exam: PRESENT: moist, tongue midline Neck exam: PRESENT: JVD - 14 cm. ABSENT: carotid bruit, lymphadenopathy, thyromegaly Respiratory exam: PRESENT: crackles - Bibasal, rales, wheezes - few. ABSENT: rhonchi Cardiovascular exam: PRESENT: RRR, +S1, +S2, systolic murmur - 2/6 ESM aortic and 1/6 PSM apex. ABSENT: diastolic murmur, rubs Pulses: PRESENT: +1 pedal pulses bilateral Vascular exam: PRESENT: normal capillary refill GI/Abdominal exam: PRESENT: ascites, normal bowel sounds, soft. ABSENT: distended, guarding, mass, organolmegaly, rebound, tenderness Rectal exam: PRESENT: deferred Gentrourinary exam: PRESENT: scrotal swelling - severe Extremities exam: PRESENT: full ROM, other - Edema 3+. ABSENT: calf tenderness , clubbing, pedal edema Musculoskeletal exam: PRESENT: ambulatory, other - no joint swelling Neurological exam: PRESENT: alert, awake, oriented to person, oriented to place , oriented to time, oriented to situation, CN II-XII grossly intact. ABSENT: motor sensory deficit Psychiatric exam: PRESENT: appropriate affect, normal mood. ABSENT: homicidal ideation, suicidal ideation Skin exam: PRESENT: dry, intact, warm. ABSENT: cyanosis, rash Results Laboratory Results: 11/21/16 06:02 11/22/16 14:50 11/22/16 11/22/16 11/22/16 04:17 04:17 14:50 Sodium 141.8 Potassium 2.9 L* 3.4 L Chloride 96 L Carbon Dioxide 37 H Anion Gap 9 BUN 24 H Creatinine 1.00 Est GFR ( Amer) > 60 Est GFR (Non-Af Amer) > 60 Glucose 95 Calcium 8.7 Magnesium 1.8 11/19/16 11/19/16 06:55 13:34 Troponin I 0.028 0.028 Impressions: Chest X-Ray 11/18/16 19:24 IMPRESSION: Bibasilar airspace and interstitial opacities. Right moderate pleural effusion, small effusion on the left. Assessment & Plan - Diagnosis (2) Atrial fibrillation with rapid ventricular response Is this a current diagnosis for this admission?: Yes (3) Essential hypertension Is this a current diagnosis for this admission?: Yes (5) Pleural effusion Is this a current diagnosis for this admission?: Yes - Notes Notes: Acute on chronic systolic CHF: Improving. Patient has not ambulated much. Patient encouraged to ambulate. Atrial fibrillation: Heart rate is reasonably well controlled. Continue with current regimen. Hypertension: Currently stable. Continue current regimen. Bilateral pleural effusion: Seems improved on clinical exam. Scrotal edema: Patient advised to have a scrotal lift. Pedal edema: This is improving. - Time Time with patient: 15-25 minutes - CODE STATUS was discussed, patient remains full code. Surrogate decision-maker unchanged. Multiple medical problems were addressed. More than 50% of the time spent coordinating care, discussing management plans with involved caregivers. Management plans discussed with involved personnels. Medical decision making was of moderate to high complexity , patient's has multiple comorbidities. Medications reviewed and adjusted accordingly: Yes
[2016-11-23] MEDS: AMOXICILLIN TR/POT CLAVULANATE 500-125 MG TAB PO SCH ×3 (01:34→17:03)
[2016-11-23 07:03] LABS: ANION GAP 10 (5-19); BLOOD UREA NITROGEN 18 mg/dL (7-20); CALCIUM 8.7 mg/dL (8.4-10.2); CHLORIDE 92 mmol/L (98-107); CREATININE RESULT 0.84 mg/dL (0.52-1.25); GLUCOSE 86 mg/dL (75-110); POTASSIUM 3.5 mmol/L (3.6-5.0); SODIUM 141.9 mmol/L (137-145)
[2016-11-23 07:33] LABS: CARBON DIOXIDE 40 mmol/L (22-30)
[2016-11-23] MEDS: FUROSEMIDE INJ/PF 40 MG/4 ML SDV IV SCH (08:23)
[2016-11-23] MEDS: LISINOPRIL 5 MG TABLET PO SCH (09:22)
[2016-11-23] MEDS: METOLAZONE 2.5 MG TABLET PO SCH (09:22)
[2016-11-23] MEDS: APIXABAN 2.5 MG TABLET PO SCH ×2 (09:22→21:50)
[2016-11-23] MEDS: DIGOXIN 0.125 MG TABLET PO SCH (09:22)
[2016-11-23] MEDS: SPIRONOLACTONE 25 MG TABLET PO SCH (09:22)
[2016-11-23] MEDS: METOPROLOL SUCCINATE 50 MG TAB.SR.24H PO SCH ×2 (09:22→21:49)
[2016-11-23] MEDS: DOCUSATE SODIUM 100 MG CAPSULE PO SCH ×2 (09:22→14:57)
[2016-11-23] MEDS ORDERED: ACETAZOLAMIDE 250 MG TABLET PO ONE (09:30)
[2016-11-23] MEDS: NYSTATIN CREAM 15 GM TP SCH ×2 (09:33→17:03)
--- NOTE | 2016-11-23 12:15 | PDOC PROGRESS REPORT ---
Subjective Progress Note for:: 11/23/16 Subjective:: Denies any CP nor SOB. No diarrhea. Noted rash by staff on left arm and abdominal wall. No reported chills nor fever. Physical Exam Vital Signs: Temp Pulse Resp BP Pulse Ox 97.6 F 100 20 119/73 94 11/23/16 07:31 11/23/16 07:31 11/23/16 07:31 11/23/16 07:31 11/23/16 07:31 Intake & Output 11/22/16 11/23/16 11/24/16 06:59 06:59 06:59 Intake Total 2014 1725 Output Total 2149 0285 Balance -135 -2849 Weight 113.7 kg 109.3 kg General appearance: PRESENT: no acute distress, cooperative Head exam: PRESENT: normocephalic Eye exam: PRESENT: EOMI Mouth exam: PRESENT: moist, neck supple Neck exam: ABSENT: JVD Respiratory exam: PRESENT: clear to auscultation kiera - anteriorly, decreased breath sounds - bases. ABSENT: rhonchi, wheezes Cardiovascular exam: PRESENT: irregular rhythm, RRR. ABSENT: gallop GI/Abdominal exam: PRESENT: soft. ABSENT: distended Extremities exam: PRESENT: other - lower extremity edema is less. Scrotal edema unchanged. Neurological exam: PRESENT: alert, awake, oriented to situation Skin exam: PRESENT: dry, warm. ABSENT: cyanosis Results Laboratory Results: 11/21/16 06:02 11/23/16 05:14 11/22/16 11/23/16 14:50 05:14 Sodium 141.9 Potassium 3.4 L 3.5 L Chloride 92 L Carbon Dioxide 40 H* Anion Gap 10 BUN 18 Creatinine 0.84 Est GFR ( Amer) > 60 Est GFR (Non-Af Amer) > 60 Glucose 86 Calcium 8.7 11/19/16 11/19/16 06:55 13:34 Troponin I 0.028 0.028 Impressions: Chest X-Ray 11/18/16 19:24 IMPRESSION: Bibasilar airspace and interstitial opacities. Right moderate pleural effusion, small effusion on the left. Assessment & Plan - Diagnosis (1) Pneumonia Qualifiers: Pneumonia type: due to unspecified organism Laterality: bilateral Lung location: lower lobe of lung Qualified Code(s): J18.9 - Pneumonia, unspecified organism Is this a current diagnosis for this admission?: Yes (2) Pleural effusion Is this a current diagnosis for this admission?: Yes (3) Atrial fibrillation with rapid ventricular response Is this a current diagnosis for this admission?: Yes (4) Acute CHF (congestive heart failure) Qualifiers: Congestive heart failure type: combined Qualified Code(s): I50.41 - Acute combined systolic (congestive) and diastolic (congestive) heart failure Is this a current diagnosis for this admission?: Yes (5) Essential hypertension Is this a current diagnosis for this admission?: Yes (6) Depression Qualifiers: Depression Type: unspecified Qualified Code(s): F32.9 - Major depressive disorder, single episode, unspecified Is this a current diagnosis for this admission?: Yes - Time Time Spent with patient: 25-34 minutes - Plan Summary Plan Summary: transition to oral lasix. Keep zaroxolyn. Begin diamox. Replace potassium. Obtain scrotal US.
[2016-11-23] MEDS: POTASSIUM CHLORIDE 10 MEQ TABLET.SA PO SCH ×2 (13:14→17:03)
[2016-11-23] MEDS: ACETAZOLAMIDE 250 MG TABLET PO SCH ×2 (13:15→21:50)
--- NOTE | 2016-11-23 18:36 | PDOC PROGRESS REPORT ---
Subjective Progress Note for:: 11/21/16 Subjective:: Breathing better. No CP, nausea, vomiting, chills or fever. No diarrhea. HR is controlled in 70s as reported. Echo report discussed. Still has significant edema and possibly ascitis. Significant scrotal edema noted. Telemetry strips reviewed showed atrial fibrillation with controlled ventricular response. No sustained significant ventricular dysrhythmia noted. Physical Exam Vital Signs: Temp Pulse Resp BP Pulse Ox 98.0 F 88 18 134/74 H 96 11/21/16 19:20 11/21/16 19:20 11/21/16 19:20 11/21/16 19:20 11/21/16 19:20 Intake & Output 11/20/16 11/21/16 11/22/16 06:59 06:59 06:59 Intake Total 281 1566 Output Total 1250 1525 Balance -969 41 Weight 113.3 kg 112.3 kg Exam: General appearance: PRESENT: well-developed, well-nourished Head exam: PRESENT: atraumatic, normocephalic Eye exam: PRESENT: conjunctiva pink, EOMI, PERRLA. ABSENT: scleral icterus Ear exam: PRESENT: normal external ear exam Mouth exam: PRESENT: moist, tongue midline Neck exam: PRESENT: JVD - 14 cm. ABSENT: carotid bruit, lymphadenopathy, thyromegaly Respiratory exam: PRESENT: crackles - Bibasal, rales, wheezes - few. ABSENT: rhonchi Cardiovascular exam: PRESENT: RRR, +S1, +S2, systolic murmur - 2/6 ESM aortic and 1/6 PSM apex. ABSENT: diastolic murmur, rubs Pulses: PRESENT: +1 pedal pulses bilateral Vascular exam: PRESENT: normal capillary refill GI/Abdominal exam: PRESENT: ascites, normal bowel sounds, soft. ABSENT: distended, guarding, mass, organolmegaly, rebound, tenderness Rectal exam: PRESENT: deferred Gentrourinary exam: PRESENT: scrotal swelling - severe Extremities exam: PRESENT: full ROM, other - Edema 3+. ABSENT: calf tenderness , clubbing, pedal edema Musculoskeletal exam: PRESENT: ambulatory, other - no joint swelling Neurological exam: PRESENT: alert, awake, oriented to person, oriented to place , oriented to time, oriented to situation, CN II-XII grossly intact. ABSENT: motor sensory deficit Psychiatric exam: PRESENT: appropriate affect, normal mood. ABSENT: homicidal ideation, suicidal ideation Skin exam: PRESENT: dry, intact, warm. ABSENT: cyanosis, rash Results Laboratory Results: 11/21/16 06:02 11/21/16 06:02 11/21/16 11/21/16 06:02 06:02 WBC 5.8 RBC 4.11 L Hgb 13.4 L Hct 41.1 MCV 100 H MCH 32.7 MCHC 32.6 RDW 16.4 H Plt Count 117 L Sodium 143.2 Potassium 2.8 L* Chloride 95 L Carbon Dioxide 37 H Anion Gap 11 BUN 28 H Creatinine 1.21 Est GFR ( Amer) > 60 Est GFR (Non-Af Amer) 58 L Glucose 86 Calcium 8.5 11/19/16 11/19/16 06:55 13:34 Troponin I 0.028 0.028 Impressions: Chest X-Ray 11/18/16 19:24 IMPRESSION: Bibasilar airspace and interstitial opacities. Right moderate pleural effusion, small effusion on the left. Assessment & Plan - Diagnosis (1) Acute on chronic systolic CHF (congestive heart failure) Is this a current diagnosis for this admission?: Yes (2) Atrial fibrillation with rapid ventricular response Is this a current diagnosis for this admission?: Yes (3) Essential hypertension Is this a current diagnosis for this admission?: Yes (4) Peripheral edema Is this a current diagnosis for this admission?: Yes (5) Pleural effusion Is this a current diagnosis for this admission?: Yes - Notes Notes: Acute on chronic CHF: This has improved. Patient however still significantly volume overloaded. Continue with current regimen. Atrial fibrillation: This is chronic. Currently not on chronic anticoagulation. Currently on rate control. Rate is reasonably well controlled. Hypertension: Blood pressure goal is 135/85 or less. Currently reasonably well controlled. Peripheral edema: This has significantly improved but still significant remains. Patient specially has severe scrotal edema. Bilateral pleural effusion: Improved recommend chest x-ray. 2D echo results reviewed. Patient still has severe systolic dysfunction. Patient not interested in defibrillator at this point. Continue with medical management. Patient also however noted to be intermittently confused. - Time Time with patient: 15-25 minutes - CODE STATUS was discussed, patient remains full code. Surrogate decision-maker unchanged. Multiple medical problems were addressed. More than 50% of the time spent coordinating care, discussing management plans with involved caregivers. Management plans discussed with involved personnels. Medical decision making was of moderate to high complexity , patient's has multiple comorbidities. Medications reviewed and adjusted accordingly: Yes
--- NOTE | 2016-11-23 18:45 | PDOC PROGRESS REPORT ---
Subjective Progress Note for:: 11/23/16 Subjective:: Breathing better. No CP, nausea, vomiting, chills or fever.. HR is controlled in 70s as reported. Echo report discussed. Edema seems to have improved but still remains. Scrotal edema seems somewhat improved. Lab work was reviewed. Patient placed on Eliquis earlier. Patient on acetazolamide and also on the spironolactone. Patient placed on p.o. Lasix. Patient pedal edema has significantly improved.. Physical Exam Vital Signs: Temp Pulse Resp BP Pulse Ox 97.9 F 79 18 113/62 94 11/23/16 16:13 11/23/16 16:13 11/23/16 16:13 11/23/16 16:13 11/23/16 16:13 Intake & Output 11/22/16 11/23/16 11/24/16 06:59 06:59 06:59 Intake Total 20146 950 Output Total 2149 3948 0126 Balance -514 -5049 -8881 Weight 113.7 kg 109.3 kg Exam: GENERAL: well-nourished and in no acute distress. Alert and oriented x3. Patient noted to be intermittently confused by the nurses. HEAD: Atraumatic, normocephalic. EYES: Pupils equal round and reactive to light, extraocular movements intact, sclera anicteric, conjunctiva are normal. ENT: TMs normal, nares patent, oropharynx clear without exudates. Moist mucous membranes. No oral ulcerations or bleeding gums noted NECK: supple without lymphadenopathy. Trachea is central. No cervical or axillary lymphadenopathy noted. Carotids are 2+, JVD WNL LUNGS: Respiration seems nonlabored, no significant accessory muscle action noted. Breath sounds clear to auscultation bilaterally and equal noted. No wheezes rales or rhonchi noted. No significant dullness noted on percussion. CHEST: Palpation of the chest wall shows no significant chest wall tenderness. No other significant abnormalities noted. HEART: [place] MA[employer]GER EDUCATION, No PSH, 1/6 GALI aortic area, 1/6 cai systolic murmur mitral area, no rubs, no gallops. ABDOMEN: Soft, no significant tenderness appreciated, normoactive bowel sounds. No guarding, no rebound. No rigidity noted . No masses appreciated. EXTREMITIES: Pedal pulses are 1-2+, no calf tenderness noted. No clubbing or cyanosis. 1-2 + pedal edema noted. Scrotal edema 2-3+. NEUROLOGICAL: Focused neurological exam showed no significant neurologic deficit. Normal speech, no focal weakness appreciated. PSYCH: Normal mood, normal affect. Judgment and insight within normal limits. SKIN: No significant ecchymosis, rash, ulcerations or signs of pruritus noted. MUSCULOSKELETAL EXAM: No significant joint swelling noted. Results Laboratory Results: 11/21/16 06:02 11/23/16 05:14 11/23/16 05:14 Sodium 141.9 Potassium 3.5 L Chloride 92 L Carbon Dioxide 40 H* Anion Gap 10 BUN 18 Creatinine 0.84 Est GFR ( Amer) > 60 Est GFR (Non-Af Amer) > 60 Glucose 86 Calcium 8.7 11/19/16 11/19/16 06:55 13:34 Troponin I 0.028 0.028 Impressions: Chest X-Ray 11/18/16 19:24 IMPRESSION: Bibasilar airspace and interstitial opacities. Right moderate pleural effusion, small effusion on the left. Scrotum Ultrasound 11/23/16 00:00 IMPRESSION: Scrotal hernia. Assessment & Plan - Diagnosis (1) Acute on chronic systolic CHF (congestive heart failure) Is this a current diagnosis for this admission?: Yes (2) Atrial fibrillation with rapid ventricular response Is this a current diagnosis for this admission?: Yes (3) Essential hypertension Is this a current diagnosis for this admission?: Yes (4) Peripheral edema Is this a current diagnosis for this admission?: Yes (5) Pleural effusion Is this a current diagnosis for this admission?: Yes - Notes Notes: Acute on chronic CHF: This has improved. Medications have been switched to p.o. Agree with Zaroxolyn, Lasix, spironolactone and acetazolamide as a diuretic. Continue PETR inhibitor and beta-keya. Patient also on a small dose of digoxin. Therefore his regimen is very satisfactory. Cardiomyopathy with severely depressed LVEF: Patient not interested in defibrillator and also seems to have significant comorbid diagnosis. Patient medical management is being optimized. Patient medical regimen is now noted to be satisfactory. Scrotal edema and swelling: Evaluation suggest that patient has bilateral inguinal hernia and also bilateral scrotal edema from CHF. Pleural effusion: Clinically seems resolved. Will check a chest x-ray. Edema: Improved. Atrial fibrillation: On rate control and now on chronic anticoagulation with Eliquis. Will order predischarge chest x-ray and also a BNP level. - Time Time with patient: 15-25 minutes - CODE STATUS was discussed, patient remains full code. Surrogate decision-maker unchanged. Multiple medical problems were addressed. More than 50% of the time spent coordinating care, discussing management plans with involved caregivers. Management plans discussed with involved personnels. Medical decision making was of moderate to high complexity , patient's has multiple comorbidities.
[2016-11-24] MEDS: AMOXICILLIN TR/POT CLAVULANATE 500-125 MG TAB PO SCH ×3 (01:43→17:03)
[2016-11-24] MEDS: ACETAZOLAMIDE 250 MG TABLET PO SCH ×3 (05:16→21:50)
--- NOTE | 2016-11-24 05:58 | CONSULTATION REPORT E ---
Consultation Report NAME: KATERINA FLORES : 1940 AGE: 76Y DATE: 11/23/2016 333 A TO: MARYA HERBERT M.D. FROM: DORYS GARCIA M.D. Requesting Physician REASON FOR CONSULTATION: Patient with scrotal hernia with peristaltic bowel in the hernia on ultrasound. HISTORY OF PRESENT ILLNESS: This is a 76-year-old male with known right scrotal hernia. The patient claims he had it since 2011. He was turned down by one of the surgeons Dr. Sheppard because of high medical risks and tachycardia. He denies any pains in the right groin or left groin at this time. Denies any nauseam, vomiting, or diarrhea. No constipation or dysuria. He said sometimes he wears "belt" around the hernia sites. PAST SURGICAL HISTORY: Hemorrhoidectomy, left inguinal herniorrhaphy, and arthroscopic right knee surgery. REVIEW OF SYSTEMS: GENERAL: Denies any fever or chills. HEENT: Wears reading glasses. No hearing difficulty. PULMONARY: Childhood asthma. He states having increased difficulty breathing when it is foggy outside. Denies COPD per se. CARDIOVASCULAR: No history of pulmonary embolus or DVT. He has rapid heartbeat. GASTROINTESTINAL: No abdominal pains. MUSCULOSKELETAL: Joint pain due to arthritis. NEUROLOGIC: No seizures. ENDOCRINE: None diabetic. FAMILY HISTORY: Noncontributory. SOCIAL HISTORY: The patient is and his son lives with him. He smokes about a pack of cigarettes per week. No alcohol use for many years and no licit drug use. PHYSICAL EXAMINATION: GENERAL: Well-developed and well-nourished 76-year-old male, alert and oriented. He looks chronically ill and *------* obese. SKIN: Warm and dry. HEENT: Neck is supple. No adenopathy. LUNGS: Breath sounds are equal. HEART: Tachycardic. Regular rate and rhythm. ABDOMEN: Soft and nontender. GENITOURINARY: His has got markedly swollen both scrotal areas. He has got some reddish discoloration of the skin in the left groin site. No tenderness in both groins. At this time, quite difficult to reduce the hernia because of the swelling of the scrotum. IMPRESSION: SCROTAL HERNIA PRIMARILY ON THE RIGHT SIDE. Asymptomatic at this time. No indication for repair of the hernia at this time being asymptomatic and in light of comorbidities. DICTATING PHYSICIAN: MAYRA HERBERT M.D. [id number] PHY#: [id number] ID: [id number] JOB#: [id number] ACCT: [id number] cc:MAYRA HERBERT M.D. >
[2016-11-24 06:09] LABS: ANION GAP 6 (5-19); BLOOD UREA NITROGEN 13 mg/dL (7-20); CALCIUM 9.2 mg/dL (8.4-10.2); CARBON DIOXIDE 39 mmol/L (22-30); CHLORIDE 92 mmol/L (98-107); CREATININE RESULT 0.95 mg/dL (0.52-1.25); GLUCOSE 98 mg/dL (75-110); POTASSIUM 3.2 mmol/L (3.6-5.0); SODIUM 137.3 mmol/L (137-145)
[2016-11-24] MEDS: FUROSEMIDE 40 MG TABLET PO SCH (09:47)
[2016-11-24] MEDS: METOPROLOL SUCCINATE 50 MG TAB.SR.24H PO SCH ×2 (09:48→21:51)
[2016-11-24] MEDS: METOLAZONE 2.5 MG TABLET PO SCH (09:48)
[2016-11-24] MEDS: DIGOXIN 0.125 MG TABLET PO SCH (09:48)
[2016-11-24] MEDS: SPIRONOLACTONE 25 MG TABLET PO SCH (09:48)
[2016-11-24] MEDS: LISINOPRIL 5 MG TABLET PO SCH (09:48)
[2016-11-24] MEDS: APIXABAN 2.5 MG TABLET PO SCH ×2 (09:49→21:51)
[2016-11-24] MEDS: NYSTATIN CREAM 15 GM TP SCH ×2 (09:50→17:03)
[2016-11-24] MEDS: DOCUSATE SODIUM 100 MG CAPSULE PO SCH ×2 (09:56→16:52)
[2016-11-24] MEDS: POTASSIUM CHLORIDE 10 MEQ TABLET.SA PO SCH ×2 (11:36→16:26)
--- NOTE | 2016-11-24 14:58 | PDOC PROGRESS REPORT ---
Subjective Progress Note for:: 11/24/16 Subjective:: Denies any CP nor SOB. No diarrhea. Noted rash by staff on left arm and abdominal wall but w/o progression. No reported chills nor fever. Reported unable to get up and walk. Not on O2 at home. Physical Exam Vital Signs: Temp Pulse Resp BP Pulse Ox 97.9 F 79 16 113/68 96 11/24/16 12:00 11/24/16 14:32 11/24/16 14:32 11/24/16 12:00 11/24/16 14:32 Intake & Output 11/23/16 11/24/16 11/25/16 06:59 06:59 06:59 Intake Total 1726 2009 Output Total 4577 8920 Balance -3563 -9200 Weight 109.3 kg 100 kg General appearance: PRESENT: no acute distress Head exam: PRESENT: normocephalic Eye exam: PRESENT: EOMI Mouth exam: PRESENT: moist, neck supple Neck exam: ABSENT: JVD Respiratory exam: PRESENT: clear to auscultation kiera - anteriorly, decreased breath sounds - on bases, rales - posteriorly on bases. ABSENT: wheezes Cardiovascular exam: PRESENT: irregular rhythm. ABSENT: gallop GI/Abdominal exam: PRESENT: soft. ABSENT: distended, tenderness Extremities exam: PRESENT: other - Lower extremity edema improved. Neurological exam: PRESENT: alert, awake, oriented to situation Skin exam: PRESENT: dry, warm. ABSENT: cyanosis Results Laboratory Results: 11/21/16 06:02 11/24/16 05:17 11/24/16 05:17 Sodium 137.3 Potassium 3.2 L Chloride 92 L Carbon Dioxide 39 H Anion Gap 6 BUN 13 Creatinine 0.95 Est GFR ( Amer) > 60 Est GFR (Non-Af Amer) > 60 Glucose 98 Calcium 9.2 11/19/16 11/19/16 11/24/16 06:55 13:34 05: Troponin I 0.028 0.028 NT-Pro-B Natriuret Pep 89581 H Impressions: Scrotum Ultrasound 11/23/16 00:00 IMPRESSION: Scrotal hernia. Chest X-Ray 11/24/16 08:45 IMPRESSION: CONGESTIVE HEART FAILURE. NO SIGNIFICANT INTERVAL CHANGE. Assessment & Plan - Diagnosis (1) Pneumonia Qualifiers: Pneumonia type: due to unspecified organism Laterality: bilateral Lung location: lower lobe of lung Qualified Code(s): J18.9 - Pneumonia, unspecified organism Is this a current diagnosis for this admission?: Yes (2) Pleural effusion Is this a current diagnosis for this admission?: Yes (3) Atrial fibrillation with rapid ventricular response Is this a current diagnosis for this admission?: Yes (4) Acute CHF (congestive heart failure) Qualifiers: Congestive heart failure type: combined Qualified Code(s): I50.41 - Acute combined systolic (congestive) and diastolic (congestive) heart failure Is this a current diagnosis for this admission?: Yes (5) Essential hypertension Is this a current diagnosis for this admission?: Yes (6) Depression Qualifiers: Depression Type: unspecified Qualified Code(s): F32.9 - Major depressive disorder, single episode, unspecified Is this a current diagnosis for this admission?: Yes - Time Time Spent with patient: 25-34 minutes - Plan Summary Plan Summary: He is generally weak and w/ significant debility. I have tried to convince him for subacute rehab but he refused despite family around and aggreable. Replace electrolytes and recheck in am. Cont. PT. Continue cardiac medications and antibiotics. Cardiology cleared him to be D/C. O2 sat dropped to 87 on RA w/ activity. We will arrange for home O2. Continue antibiotics.
--- NOTE | 2016-11-24 19:48 | PDOC PROGRESS REPORT ---
Subjective Progress Note for:: 11/24/16 Subjective:: Breathing better. No CP, nausea, vomiting, chills or fever.. HR is controlled in 70s as reported. Echo report discussed. Edema seems to have improved but still remains. Scrotal edema seems somewhat improved. Lab work was reviewed. Patient had significant problems with his scrotum now. He has significant rash in the groin area and in the scrotum area. Patient is also quite debilitated. It is felt that he may not be able to be discharged home but may need to go to a long-term. Physical Exam Vital Signs: Temp Pulse Resp BP Pulse Ox 97.9 F 93 16 113/68 96 11/24/16 12:00 11/24/16 19:15 11/24/16 14:32 11/24/16 12:00 11/24/16 14:32 Intake & Output 11/23/16 11/24/16 11/25/16 06:59 06:59 06:59 Intake Total 1726 2010 933 Output Total 4575 6250 3550 Balance -2849 -0 -7661 Weight 109.3 kg 100 kg Exam: GENERAL: well-nourished and in no acute distress. Alert and oriented x3 HEAD: Atraumatic, normocephalic. EYES: Pupils equal round and reactive to light, extraocular movements intact, sclera anicteric, conjunctiva are normal. ENT: TMs normal, nares patent, oropharynx clear without exudates. Moist mucous membranes. No oral ulcerations or bleeding gums noted NECK: supple without lymphadenopathy. Trachea is central. No cervical or axillary lymphadenopathy noted. Carotids are 2+, JVD 10-12 cm LUNGS: Respiration seems nonlabored, no significant accessory muscle action noted. Breath sounds clear to auscultation bilaterally and equal noted. No wheezes rales or rhonchi noted. No significant dullness noted on percussion. CHEST: Palpation of the chest wall shows no significant chest wall tenderness. No other significant abnormalities noted. 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 ABDOMEN: Soft, no significant tenderness appreciated, normoactive bowel sounds. No guarding, no rebound. No rigidity noted . No masses appreciated. EXTREMITIES: Pedal pulses are 1-2+, no calf tenderness noted. No clubbing or cyanosis. 1+ pedal edema noted. Significant scrotal edema noted. NEUROLOGICAL: Focused neurological exam showed no significant neurologic deficit. Normal speech, no focal weakness appreciated. PSYCH: Normal mood, normal affect. Judgment and insight within normal limits. SKIN: No significant ecchymosis, rash and some ulceration noted in the groin area and in the scrotum area. MUSCULOSKELETAL EXAM: No significant joint swelling noted. Patient has significant generalized weakness. Results Laboratory Results: 11/21/16 06:02 11/24/16 05:17 11/24/16 05:17 Sodium 137.3 Potassium 3.2 L Chloride 92 L Carbon Dioxide 39 H Anion Gap 6 BUN 13 Creatinine 0.95 Est GFR ( Amer) > 60 Est GFR (Non-Af Amer) > 60 Glucose 98 Calcium 9.2 11/19/16 11/19/16 11/24/16 06:55 13:34 05:17 Troponin I 0.028 0.028 NT-Pro-B Natriuret Pep 93627 H Impressions: Scrotum Ultrasound 11/23/16 00:00 IMPRESSION: Scrotal hernia. Chest X-Ray 11/24/16 08:45 IMPRESSION: CONGESTIVE HEART FAILURE. NO SIGNIFICANT INTERVAL CHANGE. Assessment & Plan - Diagnosis (1) Acute on chronic systolic CHF (congestive heart failure) Is this a current diagnosis for this admission?: Yes (2) Atrial fibrillation with rapid ventricular response Is this a current diagnosis for this admission?: Yes (3) Essential hypertension Is this a current diagnosis for this admission?: Yes (4) Peripheral edema Is this a current diagnosis for this admission?: Yes (5) Pleural effusion Is this a current diagnosis for this admission?: Yes - Notes Notes: Acute on chronic systolic CHF: This is improving. Continue diuretic therapy. BNP level and chest x-ray still showed significant fluid problems. Atrial fibrillation: Heart rate is stable in the 70s. Patient on chronic anticoagulation. Peripheral edema improved. Pleural effusion: Chest x-ray showed continuing right pleural effusion and some underlying infiltrate. Patient's overall prognosis is guarded. May consider CT chest to look for any underlying pathology and may consider thoracentesis. - Time Time with patient: 15-25 minutes - CODE STATUS was discussed, patient remains full code. Surrogate decision-maker patient's son. Multiple medical problems were addressed. More than 50% of the time spent coordinating care, discussing management plans with involved caregivers. Management plans discussed with involved personnels. Medical decision making was of moderate to high complexity , patient's has multiple comorbidities.
[2016-11-25] MEDS: AMOXICILLIN TR/POT CLAVULANATE 500-125 MG TAB PO SCH ×2 (02:51→11:13)
[2016-11-25] MEDS: ACETAMINOPHEN 325 MG TABLET PO PRN (05:35)
[2016-11-25] MEDS: ACETAZOLAMIDE 250 MG TABLET PO SCH ×2 (05:36→14:10)
[2016-11-25 06:47] LABS: ANION GAP 10 (5-19); BLOOD UREA NITROGEN 13 mg/dL (7-20); CALCIUM 9.5 mg/dL (8.4-10.2); CARBON DIOXIDE 37 mmol/L (22-30); CHLORIDE 93 mmol/L (98-107); CREATININE RESULT 0.95 mg/dL (0.52-1.25); GLUCOSE 88 mg/dL (75-110); POTASSIUM 3.3 mmol/L (3.6-5.0); SODIUM 139.6 mmol/L (137-145)
[2016-11-25] MEDS ORDERED: POTASSIUM CHLORIDE 10 MEQ TABLET.SA PO SCH (10:00)
[2016-11-25] MEDS: APIXABAN 2.5 MG TABLET PO SCH (11:14)
[2016-11-25] MEDS: DIGOXIN 0.125 MG TABLET PO SCH (11:24)
[2016-11-25] MEDS: METOPROLOL SUCCINATE 50 MG TAB.SR.24H PO SCH (11:25)
[2016-11-25] MEDS: DOCUSATE SODIUM 100 MG CAPSULE PO SCH (11:26)
[2016-11-25] MEDS: FUROSEMIDE 40 MG TABLET PO SCH (11:26)
[2016-11-25] MEDS: METOLAZONE 2.5 MG TABLET PO SCH (11:26)
[2016-11-25] MEDS: SPIRONOLACTONE 25 MG TABLET PO SCH (11:26)
[2016-11-25] MEDS: LISINOPRIL 5 MG TABLET PO SCH (11:26)
[2016-11-25] MEDS: NYSTATIN CREAM 15 GM TP SCH (11:26)
[2016-11-25] MEDS ORDERED: FUROSEMIDE 40 MG TABLET PO SCH (12:31)
[2016-11-25 13:47] VITALS: BP 109/81
--- NOTE | 2016-11-25 14:49 | PDOC DISCHARGE SUMMARY ---
General - Admit/Disc Date/PCP Admission Date/Primary Care Provider: 11/19/16 03:17 ARSLAN MURRAY MD Discharge Date: 11/25/16 - Discharge Diagnosis (1) Acute on chronic systolic CHF (congestive heart failure) Is this a current diagnosis for this admission?: Yes (2) Atrial fibrillation with rapid ventricular response Is this a current diagnosis for this admission?: Yes (3) Depression Is this a current diagnosis for this admission?: Yes (4) Essential hypertension Is this a current diagnosis for this admission?: Yes (5) Pleural effusion Is this a current diagnosis for this admission?: Yes (6) Pneumonia Is this a current diagnosis for this admission?: Yes - Additional Information Resuscitation Status: Full Code Discharge Diet: Cardiac Discharge Activity: Activity As Tolerated, Balance Activity w/Rest, Weigh Daily Home Medications: Acetazolamide [Diamox 250 mg Tab] 250 mg PO Q8 #90 tablet 11/25/16 Amox Tr/Potassium Clavulanate [Augmentin "500" Tablet] 1 tab PO Q8A #24 tablet 11/25/16 Apixaban [Eliquis 2.5 mg Tablet] 2.5 mg PO Q12 #60 tablet 11/25/16 Digoxin [Lanoxin 0.125 mg Tablet] 0.125 mg PO DAILY #30 tablet 11/25/16 Ipratropium/Albuterol Sulfate [Duoneb 3 ml Ampul] 3 ml [facility] [id number] PRN #120 vial.neb 11/25/16 Lisinopril [Prinivil 5 mg Tablet] 5 mg PO DAILY #30 tablet 11/25/16 Metolazone [Zaroxolyn 2.5 mg Tablet] 2.5 mg PO DAILY #30 tablet 11/25/16 Metoprolol Succinate [Toprol Xl 50 mg Tab.sr] 50 mg PO Q12 #60 tab.sr.24h Potassium Chloride [Klor-Con 10 Meq Tablet.sa] 20 meq PO Q12 #60 tablet.sa 11/25 Spironolactone [Aldactone 25 mg Tablet] 25 mg PO DAILY #30 tablet 11/25/16 History of Present Illness History of Present Illness: KATERINA FLORES is a 76 year old male. 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 Patient had shortness of breath and lower extremity edema. Because of this he went to the emergency room and was found to have atrial fibrillation. The patient was noted to have bibasilar pneumonia and a pleural effusion. Patient was admitted for treatment of all of the above Hospital Course Hospital Course: 76-year-old gentleman who presented with lower extremity edema and shortness of breath and was found to have both congestive heart failure acute exacerbation, atrial fibrillation along with bibasilar pneumonia. The patient was started on a diltiazem drip with control the heart rate. The patient also was given IV diuretics with improvement in his respiratory status. Patient also because of the pneumonia was given antibiotics and has Augmentin for a total of 14 days of antibiotics. The cultures have been negative up to date. The patient is weak and debilitated and I have recommended that he go to rehab short-term although he is adamant that he will not go to rehab and says that he will go home instead and do home health with physical therapy. Physical Exam Vital Signs: Temp Pulse Resp BP Pulse Ox 97.6 F 80 20 109/81 91 L 11/25/16 13:43 11/25/16 13:43 11/25/16 13:43 11/25/16 13:43 11/25/16 13:43 Intake & Output 11/24/16 11/25/16 11/26/16 06:59 06:59 06:59 Intake Total 2009 1093 237 Output Total 4180 6000 175 Balance -2998 -2805 62 Weight 100 kg 94.5 kg General appearance: PRESENT: no acute distress Eye exam: PRESENT: conjunctiva pink. ABSENT: scleral icterus Ear exam: PRESENT: normal external ear exam Mouth exam: PRESENT: moist, tongue midline Neck exam: ABSENT: JVD Respiratory exam: PRESENT: clear to auscultation kiera. ABSENT: rales, rhonchi, wheezes Cardiovascular exam: PRESENT: RRR. ABSENT: diastolic murmur, rubs, systolic murmur GI/Abdominal exam: PRESENT: normal bowel sounds, soft. ABSENT: distended, guarding, mass, organolmegaly, rebound, tenderness Extremities exam: ABSENT: calf tenderness, clubbing, pedal edema Neurological exam: PRESENT: alert, awake, oriented to person, oriented to place , oriented to time, oriented to situation, CN II-XII grossly intact. ABSENT: motor sensory deficit Psychiatric exam: PRESENT: appropriate affect Skin exam: PRESENT: dry, intact, warm. ABSENT: cyanosis, rash Results Laboratory Results: 11/21/16 06:02 11/25/16 05:32 11/25/16 05:32 Sodium 139.6 Potassium 3.3 L Chloride 93 L Carbon Dioxide 37 H Anion Gap 10 BUN 13 Creatinine 0.95 Est GFR ( Amer) > 60 Est GFR (Non-Af Amer) > 60 Glucose 88 Calcium 9.5 11/20/16 09:40 Blood Blood Culture - Final NO GROWTH IN 5 DAYS 11/19/16 13:34 Blood Blood Culture - Final NO GROWTH IN 5 DAYS 11/19/16 11/19/16 11/24/16 06:55 13:34 05:17 Troponin I 0.028 0.028 NT-Pro-B Natriuret Pep 34603 H Impressions: Scrotum Ultrasound 11/23/16 00:00 IMPRESSION: Scrotal hernia. Chest X-Ray 11/24/16 08:45 IMPRESSION: CONGESTIVE HEART FAILURE. NO SIGNIFICANT INTERVAL CHANGE. Qualifiers PATEINT BEING DISCHARGED WITH ANY OF THE FOLLOWING DIAGNOSIS?: Heart Failure HF Pt being discharged on ACEI for LVEF less than 40%?: Yes HF Pt being discharged on ARBS for LVEF less than 40%?: Yes HF Pt with Afib discharged with Warfarin?: No Reason(s) for not prescribing Warfarin:: Procedure Contraindicated HF Pt discharged on evidence-based Beta Tacos:: Yes Plan Discharge Plan: Is to be discharged home with home health for home physical therapy. I have recommended to the patient and the son that he would benefit by going to short- term rehab until he is stronger although they would like to try it at home first. Time Spent: Greater than 30 Minutes
--- NOTE | 2016-11-25 22:49 | PDOC PROGRESS REPORT ---
Subjective Progress Note for:: 11/25/16 Subjective:: Pt seen on morning rounds prior to discharge. Breathing better. No CP, nausea, vomiting, chills or fever.. HR is controlled in 70s as reported. Edema seems to have improved but still remains. Scrotal edema seems somewhat improved. Lab work was reviewed. Physical Exam Vital Signs: Temp Pulse Resp BP Pulse Ox 97.6 F 80 20 109/81 91 L 11/25/16 13:43 11/25/16 13:43 11/25/16 13:43 11/25/16 13:43 11/25/16 13:43 Intake & Output 11/24/16 11/25/16 11/26/16 06:59 06:59 06:59 Intake Total 20093 237 Output Total 8180 6000 175 Balance -9578 -0209 62 Weight 100 kg 94.5 kg Exam: GENERAL: well-nourished and in no acute distress. Alert and oriented x3 HEAD: Atraumatic, normocephalic. EYES: Pupils equal round and reactive to light, extraocular movements intact, sclera anicteric, conjunctiva are normal. ENT: TMs normal, nares patent, oropharynx clear without exudates. Moist mucous membranes. No oral ulcerations or bleeding gums noted NECK: supple without lymphadenopathy. Trachea is central. No cervical or axillary lymphadenopathy noted. Carotids are 2+, JVD 10 cm LUNGS: Respiration seems nonlabored, no significant accessory muscle action noted. Breath sounds clear to auscultation bilaterally and equal noted. No wheezes rales or rhonchi noted. No significant dullness noted on percussion. CHEST: Palpation of the chest wall shows no significant chest wall tenderness. No other significant abnormalities noted. 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 ABDOMEN: Soft, no significant tenderness appreciated, normoactive bowel sounds. No guarding, no rebound. No rigidity noted . No masses appreciated. EXTREMITIES: Pedal pulses are 1-2+, no calf tenderness noted. No clubbing or cyanosis. 1+ pedal edema noted. Significant scrotal edema still present. NEUROLOGICAL: Focused neurological exam showed no significant neurologic deficit. Normal speech, no focal weakness appreciated. PSYCH: Normal mood, normal affect. Judgment and insight within normal limits. SKIN: No significant ecchymosis, rash and some ulceration noted in the groin area and in the scrotum area. MUSCULOSKELETAL EXAM: No significant joint swelling noted. Patient has significant generalized weakness. Results Laboratory Results: 11/21/16 06:02 11/25/16 05:32 11/25/16 05:32 Sodium 139.6 Potassium 3.3 L Chloride 93 L Carbon Dioxide 37 H Anion Gap 10 BUN 13 Creatinine 0.95 Est GFR ( Amer) > 60 Est GFR (Non-Af Amer) > 60 Glucose 88 Calcium 9.5 11/20/16 09:40 Blood Blood Culture - Final NO GROWTH IN 5 DAYS 11/19/16 13:34 Blood Blood Culture - Final NO GROWTH IN 5 DAYS 11/19/16 11/19/16 11/24/16 06:55 13:34 :17 Troponin I 0.028 0.028 NT-Pro-B Natriuret Pep 40001 H Impressions: Scrotum Ultrasound 11/23/16 00:00 IMPRESSION: Scrotal hernia. Chest X-Ray 11/24/16 08:45 IMPRESSION: CONGESTIVE HEART FAILURE. NO SIGNIFICANT INTERVAL CHANGE. Assessment & Plan - Diagnosis (1) Acute on chronic systolic CHF (congestive heart failure) Is this a current diagnosis for this admission?: Yes (2) Atrial fibrillation with rapid ventricular response Is this a current diagnosis for this admission?: Yes (3) Essential hypertension Is this a current diagnosis for this admission?: Yes (4) Peripheral edema Is this a current diagnosis for this admission?: Yes (5) Pleural effusion Is this a current diagnosis for this admission?: Yes - Notes Notes: Acute on chronic systolic CHF: This is improving. Continue diuretic therapy. Increased lasix to 80 mg po daily. Atrial fibrillation: Heart rate is stable in the 70s. Patient on chronic anticoagulation. Peripheral edema improved. Pleural effusion: Stable. Patient's overall prognosis is guarded. Will be happy to follow in the office. - Time Time with patient: 15-25 minutes Medications reviewed and adjusted accordingly: Yes
[2016-11-26] MEDS ORDERED: FUROSEMIDE 80 MG TABLET PO SCH (10:00)
== END 2016-11-25 17:50 | disposition home health service (06) | DRG 291 ==
LOC: ER 18:04 → EH 11-19 03:17 → 3S 11-20 15:58
PROVIDERS: ADMIT Family Medicine; ATTEND Family Medicine
PROC: 3E0234Z Introduction of Serum, Toxoid and Vaccine into Muscle, Percutaneous Approach (ICD-10-PCS; principal; 2016-11-20)
DX: I50.43 Acute on chronic combined systolic (congestive) and diastolic (congestive) heart failure (principal); J18.9 Pneumonia, unspecified organism; N17.9 Acute kidney failure, unspecified; I42.9 Cardiomyopathy, unspecified; I48.2 Chronic atrial fibrillation; I11.0 Hypertensive heart disease with heart failure; F32.9 Major depressive disorder, single episode, unspecified; K40.90 Unilateral inguinal hernia, without obstruction or gangrene, not specified as recurrent; M19.90 Unspecified osteoarthritis, unspecified site; F17.210 Nicotine dependence, cigarettes, uncomplicated; E87.6 Hypokalemia; B37.2 Candidiasis of skin and nail; E66.9 Obesity, unspecified; Z68.27 Body mass index [BMI] 27.0-27.9, adult; Z79.899 Other long term (current) drug therapy; Z91.14 Patient's other noncompliance with medication regimen
CPT/HCPCS: 36415; 71010; 71020; 76870; 80048; 80053; 80162; 81001; 82962; 83735; 83880; 84132; 84443; 84484; 85025; 85027; 85610; 85730; 87040; 87086; 87088; 87186; 93005; 93010; 93306; 93976; 96365; 96367; 96375; 96376; 99291; G8978-GP; G8979-GP; J0456; J0696; J1644; J1940; J3480; J3490; J7060; J7620

== ENCOUNTER 2017-01-01 04:38 | Inpatient (IN) | payer MEDICARE, BC ==
[2017-01-01] MEDS ORDERED: NORMAL SALINE 1000 ML 1,000 ML IV ONE ×3 (05:04→11:37)
--- NOTE | 2017-01-01 05:07 | ER Document Report ---
ED Medical Screen (RME) - General Stated Complaint: GENERAL WEAKNESS Time Seen by Provider: 01/01/17 05:03 Notes: 76-year-old male, comes by EMS after his son called the ambulance because patient could not get off the toilet for over an hour. Patient states he feels weak and has not been eating anything for "at least a few days", however he denies chest pain, fever, vomiting, or any locations of pain or weakness. Past medical history of atrial fibrillation and CHF, patient states he does not take any medications daily. TRAVEL OUTSIDE OF THE [place] IN LAST 30 DAYS: No - Related Data Allergies/Adverse Reactions: No Known Allergies Allergy (Verified 11/18/16 18:30) Past Medical History - Past Medical History Cardiac Medical History: Reports: Hx Atrial Fibrillation - Patient however not on chronic anticoagulation., Hx Hypertension Renal/ Medical History: Denies: Hx Peritoneal Dialysis Psychiatric Medical History: Reports: Hx Depression Past Surgical History: Reports: Other - Left inguinal hernia surgery, arthroscopic surgery of the right knee. Physical Exam - Respiratory Respiratory status: No respiratory distress Breath sounds: Normal. No: Decreased air movement, Wheezing - Cardiovascular Rhythm: Irregularly irregular Heart sounds: S1 appreciated, S2 appreciated Course - Re-evaluation Re-evalutation: Patient cool to the touch, clinically dry, oral temperature reading as 94, however he is responsive, cooperative with examination, he is not hypotensive on recheck, oxygen of 90% on room air, placed on 2 L oxygen, workup pending.
[2017-01-01] MEDS ORDERED: NORMAL SALINE 1000 ML 500 ML IV ONE (05:12)
--- NOTE | 2017-01-01 05:13 | ER Document Report ---
Doctor's Note Notes: 01/01/17 05:11 The quick triage evaluation in conjunction with the physician's senior office support assistant sosa. Patient cannot give much history. He has apparently been very weak. He was son was unable to get him off the toilet today due to his weakness. He denies any pain to me. He is very weak appearing on exam. He has no pain to palpation of his chest or abdomen. His distal extremities are cool to touch. He is in atrial fibrillation which is chronic for him. His EKG does show some increasing in size ST segment depressions in the lateral leads. I do not see any ST segment elevation. He again denies chest pain. Will obtain blood work. Will put warm blankets on him. Obtain chest x-ray and urinalysis. We will look for signs of infection. Will also obtain cardiac enzymes due to his EKG changes. Dictation of this chart was performed using voice recognition software; therefore, there may be some unintended grammatical errors.
[2017-01-01] MEDS ORDERED: LIDOCAINE 2% URO-JET 5 ML KIT MM ONE (05:20)
[2017-01-01 05:38] LABS: ABSOLUTE LYMPHOCYTES (AUTO) 1.7 10^3/uL (0.5-4.7); ABSOLUTE MONOCYTES (AUTO) 0.5 10^3/uL (0.1-1.4); ABSOLUTE NEUT (AUTO) 9.7 10^3/uL (1.7-8.2); BASOPHILS % (AUTO) 0.3 % (0-2); EOSINOPHILS % (AUTO) 0.2 % (0-6); HEMATOCRIT 56.2 % (37.9-51.0); HEMOGLOBIN 17.6 g/dL (13.5-17.0); HGB HCT DIFFERENCE -3.4; LYMPHOCYTES % (AUTO) 14.1 % (13-45); MEAN CORPUSCULAR HEMOGLOBIN 31.5 pg (27.0-33.4); MEAN CORPUSCULAR HGB CONC 31.4 g/dL (32.0-36.0); MEAN CORPUSCULAR VOLUME 100 fl (80-97); MONOCYTES % (AUTO) 4.1 % (3-13); RED CELL DISTRIBUTION WIDTH 15.7 % (11.5-14.0); SEGMENTED NEUTROPHILS % (AUTO) 81.3 % (42-78); WHITE BLOOD COUNT 11.9 10^3/uL (4.0-10.5)
[2017-01-01 05:46] LABS: VENOUS BLOOD BASE EXCESS -18.9 mmol/L; VENOUS BLOOD HCO3 11.7 mmol/L (20-32); VENOUS BLOOD PCO2 44.3 mmHg (35-63)
[2017-01-01 05:48] LABS: VENOUS BLOOD PH 7.04 (7.30-7.42)
[2017-01-01 05:51] LABS: PROTHROMBIN TIME 17.4 SEC (11.4-15.4)
[2017-01-01 05:54] LABS: ALANINE AMINOTRANSFERASE 36 U/L (21-72); ALBUMIN 4.2 g/dL (3.5-5.0); ALKALINE PHOSPHATASE 98 U/L (38-126); ASPARTATE AMINO TRANSFERASE 23 U/L (17-59); BILIRUBIN,DIRECT 0.8 mg/dL (0.0-0.4); BILIRUBIN,TOTAL 1.7 mg/dL (0.2-1.3); BLOOD UREA NITROGEN 86 mg/dL (7-20); CALCIUM 9.5 mg/dL (8.4-10.2); CARBON DIOXIDE 12 mmol/L (22-30); CHLORIDE 118 mmol/L (98-107); CREATINE KINASE 48 U/L (55-170); CREATININE RESULT 2.54 mg/dL (0.52-1.25); DIGOXIN 1.74 ng/mL (0.8-2.0); GLUCOSE 151 mg/dL (75-110); TOTAL PROTEIN 8.2 g/dL (6.3-8.2)
[2017-01-01] MEDS ORDERED: CALCIUM GLUCONATE 1000 MG/10 ML INJ IV ONE (05:58)
[2017-01-01 06:03] LABS: CREATINE KINASE MB 3.81 ng/mL (<4.55); POTASSIUM 3.9 mmol/L (3.6-5.0); SODIUM 150.3 mmol/L (137-145)
[2017-01-01 06:07] LABS: ANION GAP 20 (5-19)
[2017-01-01 06:11] LABS: TROPONIN I 0.058 ng/mL
[2017-01-01 06:21] LABS: APPEARANCE,URINE CLEAR; BILIRUBIN,URINE NEGATIVE (NEGATIVE); GLUCOSE, URINE NEGATIVE (NEGATIVE); KETONES,URINE NEGATIVE (NEGATIVE); LEUKOCYTE ESTERASE,URINE NEGATIVE (NEGATIVE); NITRITE,URINE NEGATIVE (NEGATIVE); PROTEIN,URINE NEGATIVE (NEGATIVE); UROBILINOGEN,URINE NEGATIVE mg/dL (<2.0)
[2017-01-01] MEDS ORDERED: CEFTRIAXONE 1 GM/D5W RTU 50 ML IV ONE (07:06)
--- NOTE | 2017-01-01 07:15 | EKG REPORT ---
SEVERITY:- ABNORMAL ECG - ATRIAL FIBRILLATION, V-RATE 69-123 VPC NONSPECIFIC IVCD WITH LAD ST-T WAVE CHANGES, ISCHEMIA VS LVH : Confirmed by: Ashtyn Rubio 01-Jan-2017 07:14:24
--- NOTE | 2017-01-01 07:38 | RADIOLOGY REPORT (SQ) ---
EXAM DESCRIPTION: CHEST SINGLE VIEW COMPLETED DATE/TIME: 01/01/2017 7:16 am REASON FOR STUDY: weakness COMPARISON: 11/24/2016. EXAM PARAMETERS: NUMBER OF VIEWS: One view. TECHNIQUE: Single frontal radiographic view of the chest acquired. RADIATION DOSE: NA LIMITATIONS: None. FINDINGS: LUNGS AND PLEURA: Mild mixed interstitial and airspace opacity of both lung delgado. Mild emphysematous hyperinflation. MEDIASTINUM AND HILAR STRUCTURES: No masses. Contour normal. HEART AND VASCULAR STRUCTURES: Mild large per of the cardiac silhouette. BONES: No acute findings. HARDWARE: None in the chest. OTHER: No other significant finding. IMPRESSION: Interval improvement. Mild mixed interstitial and airspace opacity. TECHNICAL DOCUMENTATION: JOB ID: [id number]
--- NOTE | 2017-01-01 07:41 | ER Document Report ---
ED General - General Chief Complaint: General Weakness Stated Complaint: GENERAL WEAKNESS Time Seen by Provider: 01/01/17 05:03 Mode of Arrival: Medic Information source: Patient, Relative Notes: 76-year-old male history of congestive heart failure Jody bryan presents by EMS with son with concerns of generalized weakness. Patient has a 2:00 this morning was unable to get off the toilet. Son notes he lives at home with him, he is unsure of CODE STATUS, he states that father has not been eating solid food for a couple weeks. Patient himself denies any complaints TRAVEL OUTSIDE OF THE [place] IN LAST 30 DAYS: No - HPI Onset: This morning Onset/Duration: Sudden Quality of pain: No pain Severity: Mild Pain Level: Denies Associated symptoms: Weakness Exacerbated by: Denies Relieved by: Denies Similar symptoms previously: Yes Recently seen / treated by doctor: Yes - Related Data Allergies/Adverse Reactions: No Known Allergies Allergy (Verified 11/18/16 18:30) Past Medical History - Social History Smoking Status: Never Smoker Cigarette use (# per day): No Chew tobacco use (# tins/day): No Smoking Education Provided: No Family History: Reviewed & Not Pertinent, Hypertension - Past Medical History Cardiac Medical History: Reports: Hx Atrial Fibrillation - Patient however not on chronic anticoagulation., Hx Hypertension Renal/ Medical History: Denies: Hx Peritoneal Dialysis Psychiatric Medical History: Reports: Hx Depression Past Surgical History: Reports: Other - Left inguinal hernia surgery, arthroscopic surgery of the right knee. Review of Systems - Review of Systems Notes: REVIEW OF SYSTEMS: CONSTITUTIONAL : Denies fever, chills, or sweats. Denies recent illness. EENT: Denies eye, ear, throat, or mouth pain or symptoms. Denies nasal or sinus congestion or discharge. Denies throat, tongue, or mouth swelling or difficulty swallowing. CARDIOVASCULAR: Denies chest pain. Denies palpitations or racing or irregular heart beat. Denies ankle edema. RESPIRATORY: Denies cough, cold, or chest congestion. Denies shortness of breath, difficulty breathing, or wheezing. GASTROINTESTINAL: Denies abdominal pain or distention. Denies nausea, vomiting , or diarrhea. Denies blood in vomitus, stools, or per rectum. Denies black, tarry stools. Denies constipation. GENITOURINARY: Denies difficulty urinating, painful urination, burning, frequency, blood in urine, or discharge. MUSCULOSKELETAL: Denies back or neck pain or stiffness. Denies joint pain or swelling. SKIN: Denies rash, lesions or sores. HEMATOLOGIC : Denies easy bruising or bleeding. LYMPHATIC: Denies swollen, enlarged glands. NEUROLOGICAL: Admits to generalized weakness PSYCHIATRIC: Denies anxiety or stress. Denies depression, suicidal ideation, or homicidal ideation. ALL OTHER SYSTEMS REVIEWED AND NEGATIVE. Dictation was performed using [employer] voice recognition software PHYSICAL EXAMINATION: GENERAL: Ill-appearing male hypotensive hypothermic HEAD: Atraumatic, normocephalic. EYES: Pupils equal round and reactive to light, extraocular movements intact, sclera anicteric, conjunctiva are normal. ENT: Nares patent, oropharynx clear without exudates. Moist mucous membranes. NECK: Normal range of motion, supple without lymphadenopathy LUNGS: Breath sounds clear to auscultation bilaterally and equal. No wheezes rales or rhonchi. HEART: Regular rate and rhythm without murmurs ABDOMEN: Soft, nontender, nondistended abdomen. No guarding, no rebound. Right inguinal hernia chronic nontender Musculoskeletal: Normal range of motion, no pitting or edema. No cyanosis. NEUROLOGICAL: Cranial nerves grossly intact. Normal speech, normal gait. Normal sensory, motor exams PSYCH: Normal mood, normal affect. SKIN: Warm, Dry, normal turgor, no rashes or lesions noted. Physical Exam - Vital signs Vitals: Resp 18 01/01/17 04:46 Course - Re-evaluation Re-evalutation: 01/01/17 07:54 Patient is noted to have acute renal failure with elevated lactic acid, metabolic acidosis, hypotension and hypothermia. Given that son states he has not been eating well I believe this is secondary to poor nutrition. Patient will be admitted to the hospitalist service and has poor prognosis - Vital Signs Vital signs: Temp Pulse Resp BP Pulse Ox 95.5 F L 17 109/83 97 01/01/17 07:04 01/01/17 06:31 01/01/17 06:01 01/01/17 05:48 - Laboratory Result Diagrams: 01/01/17 05:00 01/01/17 05:00 Laboratory results interpreted by me: 01/01/17 01/01/17 01/01/17 05:00 05:00 05:00 WBC 11.9 H RBC 5.60 H Hgb 17.6 H Hct 56.2 H MCV 100 H MCHC 31.4 L RDW 15.7 H Plt Count 137 L Seg Neutrophils % 81.3 H Absolute Neutrophils 9.7 H PT VBG pH VBG HCO3 Sodium 150.3 H Chloride 118 H Carbon Dioxide 12 L Anion Gap 20 H BUN 86 H Creatinine 2.54 H Est GFR ( Amer) 30 L Est GFR (Non-Af Amer) 25 L Glucose 151 H Lactic Acid 4.3 H Total Bilirubin 1.7 H Direct Bilirubin 0.8 H Creatine Kinase 48 L Urine Blood 01/01/17 01/01/17 01/01/17 05:00 05:00 05:47 WBC RBC Hgb Hct MCV MCHC RDW Plt Count Seg Neutrophils % Absolute Neutrophils PT 17.4 H VBG pH 7.04 L* VBG HCO3 11.7 L Sodium Chloride Carbon Dioxide Anion Gap BUN Creatinine Est GFR ( Amer) Est GFR (Non-Af Amer) Glucose Lactic Acid Total Bilirubin Direct Bilirubin Creatine Kinase Urine Blood SMALL H - Diagnostic Test Radiology reviewed: Image reviewed, Reports reviewed - opacity but no definitive pneumonia - EKG Interpretation by Nd EKG shows normal: Sinus rhythm, [place], Intervals, QRS Complexes Rate: Tachycardia Rhythm: A.Fib Critical Care Note - Critical Care Note Total time excluding time spent on procedures (mins): 45 Comments: 45 minutes of critical care time spent in direct contact evaluating and reevaluating the patient, treating symptoms, reviewing labs and studies and speaking with family and consultants excluding any procedures Discharge - Discharge Clinical Impression: Generalized weakness, Lactic acidosis, Metabolic acidosis Hypotension Qualifiers: Hypotension type: unspecified hypotension type Qualified Code(s): I95.9 - Hypotension, unspecified Inguinal hernia Qualifiers: Obstruction and gangrene presence: without obstruction or gangrene Laterality: unilateral Recurrence: recurrent Qualified Code(s): K40.91 - Unilateral inguinal hernia, without obstruction or gangrene, recurrent Acute renal failure Qualifiers: Acute renal failure type: unspecified Qualified Code(s): N17.9 - Acute kidney failure, unspecified Condition: Poor Disposition: ADMITTED INPATIENT Admitting Provider: Hospitalist Unit Admitted: IMCU Referrals: ARSLAN MURRAY MD [Primary Care Provider] - Follow up as needed
--- NOTE | 2017-01-01 08:42 | RADIOLOGY REPORT (SQ) ---
EXAM DESCRIPTION: CT ABD/PELVIS NO ORAL OR IV COMPLETED DATE/TIME: 01/01/2017 8:12 am REASON FOR STUDY: elevated lactic acid COMPARISON: None. TECHNIQUE: CT scan of the abdomen and pelvis performed without intravenous or oral contrast. Images reviewed with lung, soft tissue, and bone windows. Reconstructed coronal and sagittal MPR images revi ewed. All images stored on PACS. All CT scanners at this facility use dose modulation, iterative reconstruction, and/or weight based d osing when appropriate to reduce radiation dose to as low as reasonably achievable (ALARA). [facility]: Dose Right [facility]: CareDose [facility]: Dose Right [facility]: Teradose 4D [facility]: [employer] RADIATION DOSE: Up-to-date CT equipment and radiation dose reduction techniques were employed. CTDIv ol: 8.2 mGy. DLP: 412 mGy-cm.mGy. LIMITATIONS: None. FINDINGS: LOWER CHEST: No significant findings. Four-chamber cardiomegaly. Coronary artery calcifi cations. No nodules or infiltrates. NON-CONTRASTED LIVER, SPLEEN, ADRENALS: Evaluation limited by lack of IV contrast. No identified sign ificant masses. PANCREAS: No masses. No peripancreatic inflammatory changes. GALLBLADDER: The gallbladder is significantly dilated/hydropic. No gallstones identified. No perich olecystic fluid or inflammation. RIGHT KIDNEY AND URETER: No suspicious masses. Assessment limited by lack of IV contrast. No signif icant calcifications. No hydronephrosis or hydroureter. LEFT KIDNEY AND URETER: No suspicious masses. Assessment limited by lack of IV contrast. No signifi cant calcifications. No hydronephrosis or hydroureter. AORTA AND RETROPERITONEUM: No aneurysm. The abdominal aorta is tortuous. Scattered calcific atheros clerosis noted of the aorta and iliac arteries. No retroperitoneal masses, adenopathy, or hematoma. BOWEL AND PERITONEAL CAVITY: There is a large is right inguinal hernia and some with herniation of fa t and large intestine into the testicle prior there is no definite evidence of bowel obstruction on t his study. No mass lesions. No mesenteric adenopathy. APPENDIX: Not visualized. PELVIS, BLADDER, AND ABDOMINAL WALL:Large inguinal hernia on the right as mentioned above. No other hernia defects are identified. No mass lesions in the abdominal wall. Urinary bladder is decompress ed Schmitz catheter. Air noted within the bladder from instrumentation. No mass lesions in the pelvis . No adenopathy. BONES: Dextroconvex scoliosis of the lumbar spine. Multilevel degenerate changes of the spine noted. Osteopenia. No acute osseous abnormality identified. OTHER: No other significant finding. IMPRESSION: 1. Large fat containing/large bowel containing right inguinal hernia with contents down into the scrotum. No evidence of bowel incarceration or obstruction. 2. Gallbladder noted be significantly dilated and fluid-filled. No radiopaque gallstones identified . No pericholecystic fluid or inflammation. No biliary dilatation is identified. 3. Four-chamber cardiomegaly. TECHNICAL DOCUMENTATION: JOB ID: [id number] Quality ID # [id number]: Final reports with documentation of one or more dose reduction techniques (e.g., Au tomated exposure control, adjustment of the mA and/or kV according to patient size, use of iterative reconstruction technique) 2010 [employer]- All Rights Reserved
[2017-01-01] MEDS ORDERED: IPRATROPIUM/ALBUTEROL 0.5-2.5 MG/3 ML AMPUL NEB PRN (09:03)
[2017-01-01] MEDS ORDERED: ONDANSETRON HCL INJ/PF 4 MG/2 ML SDV IV PRN (09:03)
--- NOTE | 2017-01-01 09:03 | PDOC H&P ---
History of Present Illness Admission Date/PCP: ARSLAN MURRAY MD Patient complains of: weakness History of Present Illness: KATERINA FLORES is a 76 year old male presents from home where his only son Tanvir lives with and cares for him, noted he couldn't get himself up off the toilet this morning. Pt normally stays at home alone while Tanvir works but has noted increasing confusion over the last couple of weeks, progressive weakness and at this rate Tanvir doesn't think he can continue to care for him anymore and is asking for a dementia evaluation. Tanvir reports increased confusion, short term memory loss and increasingly living in the past. The patient is too confused to answer any questions at this time. Tanvir reports decreased intake, prefers to drink a couple of Mtn Dews and smoke cigarettes, occasionally will drink a couple of Pleitez lites. He reports no worsening of his inguinal hernia , no change in his bowel habits or urine output, no fevers or chills, n/v/d, cough with phlegm, chest pain or palpitations. eval in ED shows new ARF and metabolic acidosis and we were asked to admit for further eval and managment. review of the medical record shows he was in hospital 11/19 for afib with RVR and had eval of his inquinal hernia at that time, not thought to be good candidate for surgery due to his heart disease and general condition. echo at that time shows severe RAMIRO, EF<20%, mod to severe valvular disease. Past Medical History Cardiac Medical History: Reports: Atrial Fibrillation - Patient however not on chronic anticoagulation., Congestive Heart Failure - last EF <20% in 11/19, Hypertension Psychiatric Medical History: Reports: Depression Past Surgical History Past Surgical History: Reports: Other - Left inguinal hernia surgery, arthroscopic surgery of the right knee. Social History Smoking Status: Current Every Day Smoker Cigarettes Packs Per Day: 0.5 Frequency of Alcohol Use: Occasional - 2-4 beers/week Hx Recreational Drug Use: No Hx Prescription Drug Abuse: No - Advance Directive Resuscitation Status: Do Not Resuscitate - confirmed by Tanvir to me via phone Family History Family History: Reviewed & Not Pertinent, Hypertension Parental Family History Reviewed: Yes Children Family History Reviewed: Yes Sibling(s) Family History Reviewed.: Yes Medication/Allergy Home Medications: Acetazolamide [Diamox 250 mg Tab] 250 mg PO Q8 #90 tablet 11/25/16 Amox Tr/Potassium Clavulanate [Augmentin "500" Tablet] 1 tab PO Q8A #24 tablet 11/25/16 Apixaban [Eliquis 2.5 mg Tablet] 2.5 mg PO Q12 #60 tablet 11/25/16 Digoxin [Lanoxin 0.125 mg Tablet] 0.125 mg PO DAILY #30 tablet 11/25/16 Ipratropium/Albuterol Sulfate [Duoneb 3 ml Ampul] 3 ml [facility] RTQ4HP PRN #120 vial.neb 11/25/16 Lisinopril [Prinivil 5 mg Tablet] 5 mg PO DAILY #30 tablet 11/25/16 Metolazone [Zaroxolyn 2.5 mg Tablet] 2.5 mg PO DAILY #30 tablet 11/25/16 Metoprolol Succinate [Toprol Xl 50 mg Tab.sr] 50 mg PO Q12 #60 tab.sr.24h Potassium Chloride [Klor-Con 10 Meq Tablet.sa] 20 meq PO Q12 #60 tablet.sa 11/25 Spironolactone [Aldactone 25 mg Tablet] 25 mg PO DAILY #30 tablet 11/25/16 Allergies/Adverse Reactions: No Known Allergies Allergy (Verified 11/18/16 18:30) Review of Systems ROS unobtainable: Due to mental status Physical Exam Vital Signs: Temp Pulse Resp BP Pulse Ox 95.5 F L 17 109/83 97 01/01/17 07:04 01/01/17 06:31 01/01/17 06:01 01/01/17 05:48 General appearance: PRESENT: no acute distress, disheveled, hard of hearing, thin, well-developed. ABSENT: well-nourished Head exam: PRESENT: atraumatic, normocephalic Eye exam: PRESENT: EOMI. ABSENT: conjunctival injection, scleral icterus Mouth exam: PRESENT: dry mucosa, neck supple, tongue midline Neck exam: PRESENT: full ROM. ABSENT: tenderness Respiratory exam: PRESENT: clear to auscultation kiera, unlabored. ABSENT: accessory muscle use Cardiovascular exam: PRESENT: irregular rhythm. ABSENT: systolic murmur, tachycardia Pulses: PRESENT: normal radial pulses, +1 pedal pulses bilateral Vascular exam: ABSENT: normal capillary refill GI/Abdominal exam: PRESENT: normal bowel sounds, soft, other - large Rt inquinal hernia into the scrotal sac, nontender, no overlying erythema or heat but bowel sounds evident in the scrotum. ABSENT: tenderness Gentrourinary exam: PRESENT: indwelling catheter Extremities exam: ABSENT: calf tenderness, pedal edema Musculoskeletal exam: PRESENT: full ROM. ABSENT: ambulatory - very weak, 3/5 at best in legs, 4/5 arms Psychiatric exam: PRESENT: anxious Focused psych exam: PRESENT: paranoid, other - fixated on getting a drink of water, won't participate in exam Skin exam: PRESENT: dry, erythema - of the perineal skin folds and post scrotum with scaling skin, warm Results Laboratory Results: 01/01/17 05:00 01/01/17 05:00 01/01/17 01/01/17 01/01/17 05:00 05:00 05:00 WBC 11.9 H RBC 5.60 H Hgb 17.6 H Hct 56.2 H MCV 100 H MCH 31.5 MCHC 31.4 L RDW 15.7 H Plt Count 137 L Seg Neutrophils % 81.3 H Lymphocytes % 14.1 Monocytes % 4.1 Eosinophils % 0.2 Basophils % 0.3 Absolute Neutrophils 9.7 H Absolute Lymphocytes 1.7 Absolute Monocytes 0.5 Absolute Eosinophils 0.0 Absolute Basophils 0.0 VBG pH VBG pCO2 VBG HCO3 VBG Base Excess Sodium 150.3 H Potassium 3.9 Chloride 118 H Carbon Dioxide 12 L Anion Gap 20 H BUN 86 H Creatinine 2.54 H Est GFR ( Amer) 30 L Est GFR (Non-Af Amer) 25 L Glucose 151 H Lactic Acid 4.3 H Calcium 9.5 Total Bilirubin 1.7 H AST 23 ALT 36 Alkaline Phosphatase 98 Total Protein 8.2 Albumin 4.2 Urine Color Urine Appearance Urine pH Ur Specific [place] Urine Protein Urine Glucose (UA) Urine Ketones Urine Blood Urine Nitrite Ur Leukocyte Esterase Urine WBC (Auto) Urine RBC (Auto) 01/01/17 01/01/17 05:00 05:47 WBC RBC Hgb Hct MCV MCH MCHC RDW Plt Count Seg Neutrophils % Lymphocytes % Monocytes % Eosinophils % Basophils % Absolute Neutrophils Absolute Lymphocytes Absolute Monocytes Absolute Eosinophils Absolute Basophils VBG pH 7.04 L* VBG pCO2 44.3 VBG HCO3 11.7 L VBG Base Excess -18.9 Sodium Potassium Chloride Carbon Dioxide Anion Gap BUN Creatinine Est GFR ( Amer) Est GFR (Non-Af Amer) Glucose Lactic Acid Calcium Total Bilirubin AST ALT Alkaline Phosphatase Total Protein Albumin Urine Color YELLOW Urine Appearance CLEAR Urine pH 5.0 Ur Specific [place] 1.010 Urine Protein NEGATIVE Urine Glucose (UA) NEGATIVE Urine Ketones NEGATIVE Urine Blood SMALL H Urine Nitrite NEGATIVE Ur Leukocyte Esterase NEGATIVE Urine WBC (Auto) 2 Urine RBC (Auto) 4 01/01/17 01/01/17 05:00 05:00 Creatine Kinase 48 L CK-MB (CK-2) 3.81 Troponin I 0.058 EKG Comments: ekg shows afib with inverted TW and ST depression 1mm in ant V leads Impressions: Chest X-Ray 01/01/17 05:03 IMPRESSION: Interval improvement. Mild mixed interstitial and airspace opacity. Status: Imported from PACS Assessment & Plan - Diagnosis (1) Acute renal failure Qualifiers: Acute renal failure type: unspecified Qualified Code(s): N17.9 - Acute kidney failure, unspecified Is this a current diagnosis for this admission?: YesPlan: likely volume depletion due to decreased oral intake worsened by continued use of diuretic and ACEi for control of his hypertension. admit and attempt to resuscitate his kidney with fluid keeping in mind his severe CM and known EF <20 %. (2) Generalized weakness Is this a current diagnosis for this admission?: YesPlan: likely 2/2 above; hydrate and start PT to establish functional status (3) Inguinal hernia Qualifiers: Obstruction and gangrene presence: without obstruction or gangrene Laterality: unilateral Recurrence: recurrent Qualified Code(s): K40.91 - Unilateral inguinal hernia, without obstruction or gangrene, recurrent Is this a current diagnosis for this admission?: YesPlan: appears to be stable (4) Lactic acidosis Is this a current diagnosis for this admission?: YesPlan: unclear etiology but likely starvation acidosis due to poor oral intake (5) Metabolic acidosis Is this a current diagnosis for this admission?: YesPlan: likely renal acidosis due to acute failure contributing to the above (6) Cardiomyopathy Qualifiers: Cardiomyopathy type: ischemic Qualified Code(s): I25.5 - Ischemic cardiomyopathy Is this a current diagnosis for this admission?: YesPlan: EF 20% will affect efforts to achieve euvolemia (7) Abnormal ECG Is this a current diagnosis for this admission?: YesPlan: TWI and ST seg depression, possibly related to severe acidosis, possibly underlying ischemia as well; trend ecgs and maximize medical Tx as his condition will allow (8) Chronic a-fib Is this a current diagnosis for this admission?: YesPlan: rate control and continue anticoagulation - Time Time Spent: Greater than 70 Minutes Medications reviewed and adjusted accordingly: Yes - Inpatient Certification Based on my medical assessment, after consideration of the patient's comorbidities, presenting symptoms, or acuity I expect that the services needed warrant INPATIENT care.: Yes I certify that my determination is in accordance with my understanding of Medicare's requirements for reasonable and necessary INPATIENT services [42 CFR 412.3e].: Yes Medical Necessity: Significant Comorbidiites Make Outpatient Treatment Too Risky , Need For IV Fluids, Need For Continuous Telemetry Monitoring, Risk of Complication if Not Cared For in Hospital
[2017-01-01 10:26] LABS: MAGNESIUM 3.3 mg/dL (1.6-2.3); PHOSPHORUS 7.1 mg/dL (2.5-4.5)
[2017-01-01] MEDS: NORMAL SALINE 1000 ML 1,000 ML IV PRN ×2 (11:42→12:01)
[2017-01-01] MEDS: DOCUSATE SODIUM 100 MG CAPSULE PO SCH (11:49)
[2017-01-01] MEDS: APIXABAN 2.5 MG TABLET PO SCH ×2 (12:00→17:40)
[2017-01-01 12:19] LABS: CREATINE KINASE MB 6.42 ng/mL (<4.55); TROPONIN I 0.077 ng/mL
[2017-01-01] MEDS ORDERED: METOPROLOL TARTRATE 25 MG TABLET PO ONE (14:00)
[2017-01-01 17:02] LABS: ANION GAP 15 (5-19); BLOOD UREA NITROGEN 85 mg/dL (7-20); CALCIUM 8.6 mg/dL (8.4-10.2); CHLORIDE 126 mmol/L (98-107); CREATININE RESULT 2.14 mg/dL (0.52-1.25); GLUCOSE 114 mg/dL (75-110); POTASSIUM 3.2 mmol/L (3.6-5.0)
[2017-01-01 17:09] LABS: CARBON DIOXIDE 9 mmol/L (22-30)
[2017-01-01 17:13] LABS: CREATINE KINASE MB 8.4 ng/mL (<4.55); TROPONIN I 0.112 ng/mL
[2017-01-01] MEDS ORDERED: APIXABAN 2.5 MG TABLET PO SCH (18:00)
[2017-01-01] MEDS ORDERED: DEXTROSE 5%-WATER 1000 ML 1,000 ML with SODIUM BICARBONATE 100 MEQ IV PRN ×2 (18:30)
[2017-01-01] MEDS ORDERED: SODIUM BICARBONATE 8.4% INJ 50 MEQ/50 ML DISP.SYRIN IV ONE (20:00)
[2017-01-01] MEDS ORDERED: DEXTROSE 5%-WATER 1000 ML 1,000 ML with SODIUM BICARBONATE 150 MEQ IV PRN ×2 (20:00)
[2017-01-01] MEDS: POTASSI CL 20 MEQ/50 ML RIDER 20 MEQ/50 ML RTUPB IV SCH ×2 (21:09→23:07)
--- NOTE | 2017-01-01 21:17 | PDOC CONSULTATION ---
Consultation Consult Date: 01/01/17 Attending physician:: MCKENZIE ADAMS Consult reason:: I was asked by Dr. Adams to see the patient because of acute kidney injury and severe metabolic acidosis. History of Present Illness Admission Date/PCP: 01/01/17 09:03 ARSLAN MURRAY MD History of Present Illness: KATERINA FLORES is a 76 year old male with history of atrial fibrillation and cardiomyopathy with ejection fraction of less than 20% who presents from home where his only son Tanvir lives with and cares for him, noted he couldn't get himself up off the toilet this morning. Suman normally stays at home alone while Tanvir works but has noted increasing confusion over the last couple of weeks, progressive weakness and at this rate Tanvir doesn't think he can continue to care for him anymore and is asking for a dementia evaluation. Tanvir reports increased confusion, short term memory loss and increasingly living in the past. The patient is too confused to answer any questions at this time. Tanvir reports decreased intake, prefers to drink a couple of Mtn Dews and smoke cigarettes, occasionally will drink a couple of Pleitez lites. Tanvir reports overall decrease in oral intake and fluid intake for the last month. He reports no worsening of his inguinal hernia, no change in his bowel habits or urine output, no fevers or chills, n/v/d, cough with phlegm, chest pain or palpitations. Evaluation in ED shows new ARF and metabolic acidosis patient was admitted by the hospitalist service. Patient came in with BUN of 86 creatinine of 2.54 bicarbonate of 12 and sodium of 150.3 initially he has a lactic acid of 4.3 which is normalized after IV fluids. Patient was given 3.5 L of 0.9 normal saline in the emergency room. Dr. Adams started him on a bicarb drip with 100 mEq of sodium bicarbonate here in IMCU to be changed 150 mEq/L of D5W when he gets transferred to the ICU. Review of records revealed that the patient's kidney function is actually within acceptable normal limits prior to this episode. Patient is being given Diamox for what I presume was due to metabolic alkalosis from previous records and labs. Also being given cardiac medications including diuretics and PETR inhibitors. Above history confirmed with her son Tanvir at bedside at the time of this interview. review of the medical record shows he was in hospital 11/19 for afib with RVR and had eval of his inquinal hernia at that time, not thought to be good candidate for surgery due to his heart disease and general condition. echo at that time shows severe RAMIRO, EF<20%, mod to severe valvular disease. Past Medical History Cardiac Medical History: Reports: Atrial Fibrillation - Patient however not on chronic anticoagulation., CHF-Systolic, Hypertension-primary, Other - Cardiomyopathy with ejection fraction of less than 20% on November 2016 Pulmonary Medical History: Reports: Asthma - During childhood GI Medical History: Reports: Other - Abdominal and inguinal hernia Psychiatric Medical History: Reports: Depression Past Surgical History Past Surgical History: Reports: Other - Left inguinal hernia surgery, arthroscopic surgery of the right knee. Social History Lives with: Family - Son Tanvir Smoking Status: Current Every Day Smoker Cigarettes Packs Per Day: 0.5 Frequency of Alcohol Use: Occasional Hx Recreational Drug Use: No Drugs: None Hx Prescription Drug Abuse: No - Advance Directive Resuscitation Status: Do Not Resuscitate Family History Family History: Other - Mother has dementia Parental Family History Reviewed: Yes Children Family History Reviewed: Yes Sibling(s) Family History Reviewed.: Unknown Medication/Allergy Home Medications: Acetazolamide [Diamox 250 mg Tab] 250 mg PO Q8 01/01/17 Apixaban [Eliquis 2.5 mg Tablet] 2.5 mg PO BID 01/01/17 Digoxin [Lanoxin] 125 mcg PO DAILY 01/01/17 Lisinopril [Prinivil 5 mg Tablet] 5 mg PO DAILY 01/01/17 Metolazone [Zaroxolyn 2.5 Mg Tablet] 2.5 mg PO DAILY 01/01/17 Metoprolol Succinate [Toprol Xl 50 mg Tab.sr] 50 mg PO DAILY 01/01/17 Potassium Chloride [Klor-Con 10 Meq Tablet.sa] 20 meq PO BID 01/01/17 Spironolactone 25 mg PO DAILY 01/01/17 Allergies/Adverse Reactions: No Known Allergies Allergy (Verified 11/18/16 18:30) Review of Systems ROS unobtainable: Due to mental status Physical Exam Vital Signs: Temp Pulse Resp BP Pulse Ox 97.8 F 87 18 105/56 L 99 01/01/17 19:44 01/01/17 19:44 01/01/17 19:44 01/01/17 19:44 01/01/17 19:44 Intake & Output 12/31/16 01/01/17 01/02/17 06:59 06:59 06:59 Intake Total 900 Output Total 600 Balance 300 Weight 71.2 kg Exam: General appearance: no acute distress, cooperative, fairly developed and fairly nourished, somnolent and briefly arousable but not communicative at this time Head exam: PRESENT: atraumatic, normocephalic Eye exam: PRESENT: Conjunctiva mildly pale, EOMI, PERRLA. ABSENT: conjunctival injection, scleral icterus Mouth exam: PRESENT: moist, neck supple, tongue midline Neck exam: PRESENT: full ROM. ABSENT: carotid bruit, JVD, lymphadenopathy, thyromegaly Respiratory exam: PRESENT: Diminished to auscultation bilaterally. ABSENT: rales, rhonchi, stridor, wheezes Cardiovascular exam: PRESENT: Irregular, +S1, +S2. ABSENT: systolic murmur Pulses: PRESENT: normal radial pulses, normal dorsalis pedis pulses GI/Abdominal exam: PRESENT: normal bowel sounds, soft. ABSENT: guarding, mass, tenderness Rectal exam: deferred Extremities exam: PRESENT: full ROM. ABSENT: calf tenderness, pedal edema Musculoskeletal: PRESENT: full ROM. ABSENT: deformity Neurological exam: PRESENT: Sleepy but arousable briefly, orientation difficult to assess at this time, reflexes normal, CN II-XII grossly intact. ABSENT: motor sensory deficit Psychiatric exam: PRESENT: Difficult to assess at this time due to mentation. ABSENT: homicidal ideation, suicidal ideation Skin exam: PRESENT: intact, dry, warm. Poor skin turgor ABSENT: rash Results Laboratory Results: 01/01/17 16:45 01/01/17 01/01/17 10:12 16:45 Sodium 150.0 H Potassium 3.2 L Chloride 126 H Carbon Dioxide 9 L* Anion Gap 15 BUN 85 H Creatinine 2.14 H Est GFR ( Amer) 36 L Est GFR (Non-Af Amer) 30 L Glucose 114 H Lactic Acid 1.3 Calcium 8.6 01/01/17 01/01/17 01/01/17 11:37 11:37 16:45 Creatine Kinase 117 155 CK-MB (CK-2) 6.42 H Troponin I 0.077 01/01/17 16:45 Creatine Kinase CK-MB (CK-2) 8.40 H Troponin I 0.112 Impressions: Chest X-Ray 01/01/17 05:03 IMPRESSION: Interval improvement. Mild mixed interstitial and airspace opacity. Abdomen/Pelvis CT 01/01/17 06:08 IMPRESSION: 1. Large fat containing/large bowel containing right inguinal hernia with contents down into the scrotum. No evidence of bowel incarceration or obstruction. 2. Gallbladder noted be significantly dilated and fluid-filled. No radiopaque gallstones identified. No pericholecystic fluid or inflammation. No biliary dilatation is identified. 3. Four-chamber cardiomegaly. Assessment & Plan - Diagnosis (1) Acute renal failure Qualifiers: Acute renal failure type: unspecified Qualified Code(s): N17.9 - Acute kidney failure, unspecified Is this a current diagnosis for this admission?: YesPlan: Most likely secondary to prerenal azotemia secondary to severe dehydration with contribution of nephrotoxic medications including diuretics spironolactone, Zaroxolyn, and PETR inhibitor lisinopril. Patient is currently now nonoliguric. He does not require any urgent renal replacement therapy at this time. Patient was started on IV hydration from the emergency room. Agree with current IV bicarb drip. (2) Metabolic acidosis Is this a current diagnosis for this admission?: YesPlan: Severe with anion gap initially. This most likely secondary to a combination of acute renal failure and Diamox on the medication list. The drop of bicarbonate after 3 L of IV fluid is most likely secondary to hydration. Ideally the patient should be given a little bit more hypotonic IV fluids at the start with bicarb drip. I agree with sodium bicarbonate drip with 150 mEq of sodium bicarbonate in 1 L of D5 water run at 100 mL an hour. Ideally the patient should also receive hypertonic fluid. However I am going to have to hold it at this time because the patient already received a total of 8.5 l considering the patient's known severe cardiomyopathy with ejection fraction of less than 20%. The patient's acidosis is better than a bicarbonate drip has to be discontinued and patient to be encouraged to drink more water than anything. I explained to the patient's son at bedside about the patient's current condition with regards to acidosis and renal failure. The only indication for any renal replacement therapy is if the patient fails to respond to the current bicarbonate drip. We will check patient's labs in the morning and if the bicarbonate is still very low we might need to do a one time renal replacement therapy to correct the acidosis of the bit faster. I explained the procedure of hemodialysis to the patient's son. Discussed benefits and risks. Patient's son agreed to have a one-time temporary renal replacement therapy if needed tomorrow if the patient's acidosis is still severe. We will reevaluate in the morning. (3) Hypernatremia Is this a current diagnosis for this admission?: YesPlan: Due to severe dehydration. Needs hypotonic IV fluids ideally. Also encouraged the patient to drink a little bit more water if more awake. (4) Dehydration Is this a current diagnosis for this admission?: Yes (5) Hypokalemia Is this a current diagnosis for this admission?: YesPlan: This is due to IV fluid hydration and bicarbonate drip. Give the patient that K rider of 40 mEq tonight. We are more likely going to need to replace potassium a little bit more tomorrow with a bicarb drip. (6) Hyperphosphatemia Is this a current diagnosis for this admission?: Yes (7) Hypermagnesemia Is this a current diagnosis for this admission?: Yes (8) Cardiomyopathy Qualifiers: Cardiomyopathy type: ischemic Qualified Code(s): I25.5 - Ischemic cardiomyopathy Is this a current diagnosis for this admission?: Yes (9) Chronic a-fib Is this a current diagnosis for this admission?: Yes (10) Generalized weakness Is this a current diagnosis for this admission?: Yes - Notes Notes: Thank you very much for this consultation. Discussed with Dr. Adams and the patient's son. - Time Time Spent: Greater than 70 Minutes
--- NOTE | 2017-01-01 21:42 | EKG REPORT ---
SEVERITY:- ABNORMAL ECG - ATRIAL FIBRILLATION, V-RATE 76-103 RUN OF VENTRICULAR PREMATURE COMPLEXES ABERRANT COMPLEX, POSSIBLY SUPRAVENTRICULAR LAD, CONSIDER LEFT ANTERIOR FASCICULAR BLOCK : Confirmed by: Ashtyn Rubio 01-Jan-2017 21:41:32
[2017-01-01] MEDS: METOPROLOL TARTRATE 25 MG TABLET PO SCH (23:08)
[2017-01-01] MEDS: POTASSIUM CHLORIDE 20 MEQ/15 ML UDCUP PO SCH (23:08)
[2017-01-01 23:14] LABS: ANION GAP 14 (5-19); BLOOD UREA NITROGEN 86 mg/dL (7-20); CALCIUM 8.4 mg/dL (8.4-10.2); CARBON DIOXIDE 13 mmol/L (22-30); CHLORIDE 124 mmol/L (98-107); CREATINE KINASE 156 U/L (55-170); CREATININE RESULT 1.91 mg/dL (0.52-1.25); GLUCOSE 116 mg/dL (75-110); POTASSIUM 3.4 mmol/L (3.6-5.0); SODIUM 150.7 mmol/L (137-145)
[2017-01-01] MEDS ORDERED: ERTAPENEM SODIUM INJ 1 GM VIAL ONE (23:18)
[2017-01-01 23:25] LABS: CREATINE KINASE MB 9.26 ng/mL (<4.55)
[2017-01-01] MEDS: ERTAPENEM SODIUM 0.5 GM in NORMAL SALINE 50 ML IV SCH (23:32)
[2017-01-01 23:39] LABS: TROPONIN I 0.117 ng/mL
[2017-01-01 23:56] LABS: ADD ON TESTING BLD IN LAB ACKNOWLEDGE
[2017-01-02 00:05] LABS: MAGNESIUM 2.8 mg/dL (1.6-2.3)
[2017-01-02 04:30] LABS: PROTHROMBIN TIME 19.7 SEC (11.4-15.4)
[2017-01-02 04:35] LABS: ANION GAP 13 (5-19); BLOOD UREA NITROGEN 80 mg/dL (7-20); CALCIUM 8.6 mg/dL (8.4-10.2); CARBON DIOXIDE 16 mmol/L (22-30); CHLORIDE 125 mmol/L (98-107); CREATININE RESULT 1.78 mg/dL (0.52-1.25); GLUCOSE 105 mg/dL (75-110); MAGNESIUM 2.8 mg/dL (1.6-2.3); POTASSIUM 3.4 mmol/L (3.6-5.0); SODIUM 153.6 mmol/L (137-145)
[2017-01-02 04:54] LABS: PHOSPHORUS 2.8 mg/dL (2.5-4.5)
[2017-01-02 04:57] LABS: ABSOLUTE LYMPHOCYTES (AUTO) 1.3 10^3/uL (0.5-4.7); ABSOLUTE MONOCYTES (AUTO) 0.8 10^3/uL (0.1-1.4); ABSOLUTE NEUT (AUTO) 8.8 10^3/uL (1.7-8.2); BASOPHILS % (AUTO) 0.3 % (0-2); EOSINOPHILS % (AUTO) 0.1 % (0-6); HEMATOCRIT 43.6 % (37.9-51.0); HGB HCT DIFFERENCE -0.4; LYMPHOCYTES % (AUTO) 12.1 % (13-45); MEAN CORPUSCULAR HEMOGLOBIN 32.1 pg (27.0-33.4); MEAN CORPUSCULAR VOLUME 97 fl (80-97); MONOCYTES % (AUTO) 7.1 % (3-13); RED BLOOD COUNT 4.48 10^6/uL (4.35-5.55); RED CELL DISTRIBUTION WIDTH 14.8 % (11.5-14.0); SEGMENTED NEUTROPHILS % (AUTO) 80.4 % (42-78); WHITE BLOOD COUNT 10.9 10^3/uL (4.0-10.5)
[2017-01-02 05:03] LABS: HEMOGLOBIN 14.4 g/dL (13.5-17.0)
[2017-01-02] MEDS: LANSOPRAZOLE 30 MG TAB.RAP.DR PO SCH (05:47)
[2017-01-02] MEDS ORDERED: ATORVASTATIN CALCIUM 80 MG TABLET PO ONE (09:00)
[2017-01-02] MEDS: POTASSIUM CHLORIDE 20 MEQ/50 ML RTU IV SCH ×2 (09:52→12:18)
[2017-01-02] MEDS: POTASSIUM CHLORIDE 20 MEQ/15 ML UDCUP PO SCH ×2 (09:54→22:36)
[2017-01-02] MEDS: DOCUSATE SODIUM 100 MG CAPSULE PO SCH (11:34)
[2017-01-02] MEDS: METOPROLOL TARTRATE 25 MG TABLET PO SCH (11:37)
--- NOTE | 2017-01-02 11:42 | PDOC PROGRESS REPORT ---
Subjective Progress Note for:: 01/02/17 Subjective:: reason for visit: f/u ARF, severe metabolic acidosis, severe CM, NSTEMI hospital course: KATERINA FLORES is a 76 year old male presents from home where his only son Tanvir lives with and cares for him, noted he couldn't get himself up off the toilet this morning. Suman normally stays at home alone while Tanvir works but has noted increasing confusion over the last couple of weeks, progressive weakness and at this rate Tanvir doesn't think he can continue to care for him anymore and is asking for a dementia evaluation. Tanvir reports increased confusion, short term memory loss and increasingly living in the past. The patient is too confused to answer any questions at this time. Tanvir reports decreased intake, prefers to drink a couple of Mtn Dews and smoke cigarettes, occasionally will drink a couple of Pleitez lites. He reports no worsening of his inguinal hernia, no change in his bowel habits or urine output , no fevers or chills, n/v/d, cough with phlegm, chest pain or palpitations. eval in ED shows new ARF and metabolic acidosis and we were asked to admit for further eval and managment. review of the medical record shows he was in hospital 11/19 for afib with RVR and had eval of his inquinal hernia at that time, not thought to be good candidate for surgery due to his heart disease and general condition. echo at that time shows severe RAMIRO, EF<20%, mod to severe valvular disease. repeat labs show he is becoming more acidotic though his lactic acid is now normal his bicarb continues to fall likely from his renal failure with continued home use of diamox for reasons that are not immediately clear; also, possibly complicated by infectious process. so far the best possibility appears to be GI with hydrops gallbladder seen on ct a/p without contrast, incidentally the large Rt inguinal hernia again seen but without evidence of incarceration. will add empiric Invanz, chg fluids to bicarb gtt and add oral KCL. Dr bravo consulted, agrees with bicarb gtt and move to ICU for more careful monitoring. still need to clarify why he is on diamox. He survived the night, remains acidotic and confused, mostly mumbling and unable to consistently answer questions. nurses report several bursts of NSVT during which he is asymptomatic, otherwise no new events overnight. ROS: unobtainable due to pt's mental state Physical Exam Vital Signs: Temp Pulse Resp BP Pulse Ox 97.9 F 68 24 H 91/54 L 97 01/02/17 08:00 01/02/17 10:00 01/02/17 11:00 01/02/17 10:47 01/02/17 11:00 Intake & Output 01/01/17 01/02/17 01/03/17 06:59 06:59 06:59 Intake Total 1971 Output Total 1840 525 Balance 131 -525 Weight 71 kg General appearance: PRESENT: no acute distress, disheveled, hard of hearing, thin, well-developed. not well-nourished Head exam: PRESENT: atraumatic, normocephalic Eye exam: PRESENT: EOMI. ABSENT: conjunctival injection, scleral icterus Mouth exam: PRESENT: very dry mucosa remains, neck supple, tongue midline Neck exam: PRESENT: full ROM. ABSENT: tenderness Respiratory exam: PRESENT: clear to auscultation kiera, unlabored. ABSENT: accessory muscle use Cardiovascular exam: PRESENT: irregular rhythm, afib on monitor rate controlled. ABSENT: systolic murmur, tachycardia Pulses: PRESENT: normal radial pulses, +1 pedal pulses bilateral Vascular exam: ABSENT: normal capillary refill GI/Abdominal exam: PRESENT: normal bowel sounds, soft, other - large Rt inquinal hernia into the scrotal sac, nontender, no overlying erythema or heat but bowel sounds evident in the scrotum. Gentrourinary exam: PRESENT: indwelling catheter, massive scrotum due to hernia Extremities exam: ABSENT: calf tenderness, pedal edema Musculoskeletal exam: PRESENT: full ROM. ABSENT: ambulatory - very weak, 3/5 at best in legs, 4/5 arms Psychiatric exam: PRESENT: anxious Focused psych exam: PRESENT: no longer paranoid NEURO: speech is not slurred, moves all 4 ext's, diminished patella reflexes, no facial asymmetry and only able to process simple one step commands Skin exam: PRESENT: dry, erythema - of the perineal skin folds and post scrotum with scaling skin, warm Results Laboratory Results: 01/02/17 04:48 01/02/17 04:08 01/01/17 01/01/17 01/01/17 16:45 22:51 22:51 WBC RBC Hgb Hct MCV MCH MCHC RDW Plt Count Seg Neutrophils % Lymphocytes % Monocytes % Eosinophils % Basophils % Absolute Neutrophils Absolute Lymphocytes Absolute Monocytes Absolute Eosinophils Absolute Basophils Sodium 150.0 H 150.7 H Potassium 3.2 L 3.4 L Chloride 126 H 124 H Carbon Dioxide 9 L* 13 L Anion Gap 15 14 BUN 85 H 86 H Creatinine 2.14 H 1.91 H Est GFR ( Amer) 36 L 41 L Est GFR (Non-Af Amer) 30 L 34 L Glucose 114 H 116 H Calcium 8.6 8.4 Phosphorus Magnesium 2.8 H 01/02/17 01/02/17 01/02/17 04:08 04:08 04:48 WBC Cancelled 10.9 H RBC Cancelled 4.48 Hgb Cancelled 14.4 D Hct Cancelled 43.6 MCV Cancelled 97 MCH Cancelled 32.1 MCHC Cancelled 33.0 RDW Cancelled 14.8 H Plt Count Cancelled 112 L Seg Neutrophils % Cancelled 80.4 H Lymphocytes % Cancelled 12.1 L Monocytes % Cancelled 7.1 Eosinophils % Cancelled 0.1 Basophils % Cancelled 0.3 Absolute Neutrophils Cancelled 8.8 H Absolute Lymphocytes Cancelled 1.3 Absolute Monocytes Cancelled 0.8 Absolute Eosinophils Cancelled 0.0 Absolute Basophils Cancelled 0.0 Sodium 153.6 H Potassium 3.4 L Chloride 125 H Carbon Dioxide 16 L Anion Gap 13 BUN 80 H Creatinine 1.78 H Est GFR ( Amer) 45 L Est GFR (Non-Af Amer) 37 L Glucose 105 Calcium 8.6 Phosphorus 2.8 D Magnesium 2.8 H 01/01/17 01/01/17 01/01/17 11:37 11:37 16:45 Creatine Kinase 117 155 CK-MB (CK-2) 6.42 H Troponin I 0.077 01/01/17 01/01/17 01/01/17 16:45 22:51 22:51 Creatine Kinase 156 CK-MB (CK-2) 8.40 H 9.26 H Troponin I 0.112 0.117 Impressions: Abdomen/Pelvis CT 01/01/17 06:08 IMPRESSION: 1. Large fat containing/large bowel containing right inguinal hernia with contents down into the scrotum. No evidence of bowel incarceration or obstruction. 2. Gallbladder noted be significantly dilated and fluid-filled. No radiopaque gallstones identified. No pericholecystic fluid or inflammation. No biliary dilatation is identified. 3. Four-chamber cardiomegaly. Assessment & Plan - Diagnosis (1) Acute metabolic encephalopathy Is this a current diagnosis for this admission?: YesPlan: multifactorial with a component of acidosis and numerous electrolyte abnls especially the azotemia and hyernatremia. continue to address the underlying malfunctions as his condition will allow and hopefully his mentation will clear though i suspect contribution from undiagnosed dementia, probably vascular type confounder all this. (2) NSTEMI (non-ST elevated myocardial infarction) Is this a current diagnosis for this admission?: YesPlan: new. Dr Masterson consulted and expectant medication management as aggressively as his condition will allow. added asa, statin and continue beta keya. no ACEi due to renal failure and no NTG due to low BPs. (3) Metabolic acidosis Is this a current diagnosis for this admission?: YesPlan: multifactorial with component of dehydration, starvation, renal failure, and diamox. continue efforts to rehydrate minimizing chloride content and utilizing bicarb to counteract the acidosis with Dr Bravo's assistance. monitor BMP and adjust treatment based on clinical condition, especially in light of his CM and impaired renal function. (4) Acute renal failure Qualifiers: Acute renal failure type: unspecified Qualified Code(s): N17.9 - Acute kidney failure, unspecified Is this a current diagnosis for this admission?: YesPlan: slightly improved with hydration but not back to baseline; likely volume depletion due to decreased oral intake worsened by continued use of diuretic and ACEi for control of his hypertension. admit and attempt to resuscitate his kidney with fluid keeping in mind his severe CM and known EF <20%. (5) Lactic acidosis Is this a current diagnosis for this admission?: YesPlan: unclear etiology but likely starvation acidosis due to poor oral intake; resolved (6) Cardiomyopathy Qualifiers: Cardiomyopathy type: ischemic Qualified Code(s): I25.5 - Ischemic cardiomyopathy Is this a current diagnosis for this admission?: YesPlan: severe; EF 20% will affect efforts to achieve euvolemia (7) NSVT (nonsustained ventricular tachycardia) Is this a current diagnosis for this admission?: YesPlan: new; likely due to the above and if he survives this event will likely need IVCD. (8) Chronic a-fib Is this a current diagnosis for this admission?: YesPlan: rate control and continue anticoagulation (9) Generalized weakness Is this a current diagnosis for this admission?: Yes (10) Inguinal hernia Qualifiers: Obstruction and gangrene presence: without obstruction or gangrene Laterality: unilateral Recurrence: recurrent Qualified Code(s): K40.91 - Unilateral inguinal hernia, without obstruction or gangrene, recurrent Is this a current diagnosis for this admission?: YesPlan: appears to be stable - Time Time Spent with patient: 35 or more minutes Medications reviewed and adjusted accordingly: Yes Anticipated discharge: SNF - will need halfway placement if he survives - Plan Summary Plan Summary: prognosis guarded at best, not at all clear if he will survive this event. appropriately DNR per my conversation with Tanvir, his only child.
[2017-01-02] MEDS ORDERED: DEXTROSE 5%-WATER 1000 ML 1,000 ML with SODIUM BICARBONATE 100 MEQ IV PRN ×2 (12:00)
[2017-01-02] MEDS: APIXABAN 2.5 MG TABLET PO SCH ×2 (15:28→15:29)
[2017-01-02] MEDS: ASPIRIN 325 MG TABLET, ENT COATED PO SCH (15:29)
--- NOTE | 2017-01-02 16:21 | PDOC PROGRESS REPORT ---
Subjective Progress Note for:: 01/02/17 Subjective:: Patient is currently in the ICU since last night. So far he is hemodynamically stable and was able to tolerate sodium bicarbonate drip overnight until this time. He seems to be a little bit more awake but has garbled speech and is incomprehensible at this time. Otherwise she could not really verbalize any complaints. He indicated to me that he was fine. Physical Exam Vital Signs: Temp Pulse Resp BP Pulse Ox 97.5 F 78 13 133/112 H 98 01/02/17 14:00 01/02/17 14:00 01/02/17 15:00 01/02/17 14:46 01/02/17 15:00 Intake & Output 01/01/17 01/02/17 01/03/17 06:59 06:59 06:59 Intake Total 1971 Output Total 1840 1010 Balance 131 -1010 Weight 71 kg Exam: General appearance: PRESENT: no acute distress, cooperative, fairly developed and fairly nourished, seems comfortable Head exam: PRESENT: atraumatic, normocephalic Eye exam: PRESENT: conjunctiva pink, PERRLA. ABSENT: scleral icterus Neck exam: ABSENT: JVD Respiratory exam: PRESENT: Diminished breath sounds. ABSENT: crackles, rales, rhonchi, unlabored, wheezes Cardiovascular exam: PRESENT: Regular rate rhythm -+S1, +S2. ABSENT: diastolic murmur, systolic murmur GI/Abdominal exam: PRESENT: normal bowel sounds, soft. ABSENT: guarding, mass, tenderness Extremities exam: ABSENT: No edema Neurological exam: PRESENT: alert, awake, does not seem to be oriented to person place and time, he has incomprehensible speech Skin exam: PRESENT: dry, warm, Results Laboratory Results: 01/02/17 04:48 01/01/17 01/01/17 01/01/17 16:45 22:51 22:51 WBC RBC Hgb Hct MCV MCH MCHC RDW Plt Count Seg Neutrophils % Lymphocytes % Monocytes % Eosinophils % Basophils % Absolute Neutrophils Absolute Lymphocytes Absolute Monocytes Absolute Eosinophils Absolute Basophils Sodium 150.0 H 150.7 H Potassium 3.2 L 3.4 L Chloride 126 H 124 H Carbon Dioxide 9 L* 13 L Anion Gap 15 14 BUN 85 H 86 H Creatinine 2.14 H 1.91 H Est GFR ( Amer) 36 L 41 L Est GFR (Non-Af Amer) 30 L 34 L Glucose 114 H 116 H Calcium 8.6 8.4 Phosphorus Magnesium 2.8 H 01/02/17 01/02/17 01/02/17 04:08 04:08 04:48 WBC Cancelled 10.9 H RBC Cancelled 4.48 Hgb Cancelled 14.4 D Hct Cancelled 43.6 MCV Cancelled 97 MCH Cancelled 32.1 MCHC Cancelled 33.0 RDW Cancelled 14.8 H Plt Count Cancelled 112 L Seg Neutrophils % Cancelled 80.4 H Lymphocytes % Cancelled 12.1 L Monocytes % Cancelled 7.1 Eosinophils % Cancelled 0.1 Basophils % Cancelled 0.3 Absolute Neutrophils Cancelled 8.8 H Absolute Lymphocytes Cancelled 1.3 Absolute Monocytes Cancelled 0.8 Absolute Eosinophils Cancelled 0.0 Absolute Basophils Cancelled 0.0 Sodium 153.6 H Potassium 3.4 L Chloride 125 H Carbon Dioxide 16 L Anion Gap 13 BUN 80 H Creatinine 1.78 H Est GFR ( Amer) 45 L Est GFR (Non-Af Amer) 37 L Glucose 105 Calcium 8.6 Phosphorus 2.8 D Magnesium 2.8 H 01/01/17 01/01/17 01/01/17 11:37 11:37 16:45 Creatine Kinase 117 155 CK-MB (CK-2) 6.42 H Troponin I 0.077 01/01/17 01/01/17 01/01/17 16:45 22:51 22:51 Creatine Kinase 156 CK-MB (CK-2) 8.40 H 9.26 H Troponin I 0.112 0.117 Impressions: Chest X-Ray 01/01/17 05:03 IMPRESSION: Interval improvement. Mild mixed interstitial and airspace opacity. Abdomen/Pelvis CT 01/01/17 06:08 IMPRESSION: 1. Large fat containing/large bowel containing right inguinal hernia with contents down into the scrotum. No evidence of bowel incarceration or obstruction. 2. Gallbladder noted be significantly dilated and fluid-filled. No radiopaque gallstones identified. No pericholecystic fluid or inflammation. No biliary dilatation is identified. 3. Four-chamber cardiomegaly. Assessment & Plan - Diagnosis (1) Acute renal failure Qualifiers: Acute renal failure type: unspecified Qualified Code(s): N17.9 - Acute kidney failure, unspecified Is this a current diagnosis for this admission?: YesPlan: Most likely secondary to prerenal azotemia secondary to severe dehydration with contribution of nephrotoxic medications including diuretics spironolactone, Zaroxolyn, and PETR inhibitor lisinopril. Kidney function is slowly improving. Patient is currently now nonoliguric. He does not require any urgent renal replacement therapy at this time. Patient was started on IV hydration from the emergency room. Agree with current IV bicarb drip. I will recheck the pending labs and decide on any changes regarding the bicarb drip. (2) Metabolic acidosis Is this a current diagnosis for this admission?: YesPlan: Severe with anion gap initially. This most likely secondary to a combination of acute renal failure and Diamox on the medication list. The drop of bicarbonate after 3 L of IV fluid is most likely secondary to hydration. Ideally the patient should be given a little bit more hypotonic IV fluids at the start with bicarb drip. I agree with sodium bicarbonate drip with 150 mEq of sodium bicarbonate in 1 L of D5 water run at 100 mL an hour. Ideally the patient should also receive hypotonic fluid. However I am going to have to hold it at this time because the patient already received a total of 3.5 liters considering the patient's known severe cardiomyopathy with ejection fraction of less than 20%. If the patient's acidosis is better than the bicarbonate drip has to be discontinued and patient to be encouraged to drink more water than anything same. Yesterday I explained to the patient's son at bedside about the patient's current condition with regards to acidosis and renal failure. The only indication for any renal replacement therapy is if the patient fails to respond to the current bicarbonate drip. Fortunately the patient did show response to bicarbonate drip today. There is no indication for any renal replacement therapy at this time. I will review his pending labs and make changes as necessary. (3) Hypernatremia Is this a current diagnosis for this admission?: YesPlan: Due to severe dehydration. Needs hypotonic IV fluids ideally. Also encouraged the patient to drink a little bit more water if more awake. If the patient's acidosis is adequately corrected , we will give the patient on low-dose hypotonic fluid from his IV. (4) Dehydration Is this a current diagnosis for this admission?: Yes (5) Hypokalemia Is this a current diagnosis for this admission?: YesPlan: This is due to IV fluid hydration and bicarbonate drip. Replace as necessary. (6) Hyperphosphatemia Is this a current diagnosis for this admission?: YesPlan: Resolved. (7) Hypermagnesemia Is this a current diagnosis for this admission?: Yes (8) Cardiomyopathy Qualifiers: Cardiomyopathy type: ischemic Qualified Code(s): I25.5 - Ischemic cardiomyopathy Is this a current diagnosis for this admission?: Yes (9) Chronic a-fib Is this a current diagnosis for this admission?: Yes (10) Generalized weakness Is this a current diagnosis for this admission?: Yes (11) NSTEMI (non-ST elevated myocardial infarction) Is this a current diagnosis for this admission?: Yes (12) Acute metabolic encephalopathy Is this a current diagnosis for this admission?: YesPlan: This is due to all the metabolic abnormalities above. Most likely the patient has baseline dementia. - Notes Notes: I will not be available over the weekend starting tonight. If any question arises, Dr. Everett will be covering me on Thursday and Thursday and I will be back on Thursday. - Time Time with patient: 15-25 minutes
[2017-01-02 16:27] LABS: ANION GAP 11 (5-19); BLOOD UREA NITROGEN 69 mg/dL (7-20); CALCIUM 8.6 mg/dL (8.4-10.2); CARBON DIOXIDE 19 mmol/L (22-30); CHLORIDE 124 mmol/L (98-107); GLUCOSE 114 mg/dL (75-110); POTASSIUM 3.4 mmol/L (3.6-5.0); SODIUM 154.4 mmol/L (137-145)
[2017-01-02] MEDS ORDERED: DEXTROSE 5%-WATER 1000 ML 1,000 ML with SODIUM BICARBONATE 100 MEQ IV ONE ×2 (17:10)
[2017-01-02] MEDS: POTASSI CL 20 MEQ/50 ML RIDER 50 ML IV SCH ×2 (18:02→20:47)
[2017-01-02] MEDS ORDERED: DEXTROSE 5%-WATER 1000 ML 1,000 ML IV ONE (18:30)
--- NOTE | 2017-01-02 20:50 | EKG REPORT ---
SEVERITY:- ABNORMAL ECG - ATRIAL FIBRILLATION, V-RATE 68-103 PROBABLE ANTEROSEPTAL INFARCT, AGE INDETERM REPOL ABNRM, PROBABLE ISCHEMIA, ANT-LAT LEADS : Confirmed by: Ashtyn Rubio 02-Jan-2017 20:49:16
[2017-01-02] MEDS ORDERED: NITROGLYCERIN 2% OINTMENT 1 GM PACKET TP ONE (22:15)
[2017-01-02] MEDS: ERTAPENEM SODIUM 0.5 GM in NORMAL SALINE 50 ML IV SCH (22:35)
[2017-01-03] MEDS: NITROGLYCERIN 2% OINTMENT 1 GM PACKET TP SCH ×4 (03:47→22:25)
[2017-01-03 04:52] LABS: ABSOLUTE EOSINOPHILS # (AUTO) 0.1 10^3/uL (0.0-0.6); ABSOLUTE LYMPHOCYTES (AUTO) 1.7 10^3/uL (0.5-4.7); ABSOLUTE MONOCYTES (AUTO) 0.5 10^3/uL (0.1-1.4); ABSOLUTE NEUT (AUTO) 5.9 10^3/uL (1.7-8.2); BASOPHILS % (AUTO) 0.3 % (0-2); EOSINOPHILS % (AUTO) 0.8 % (0-6); LYMPHOCYTES % (AUTO) 20.9 % (13-45); MEAN CORPUSCULAR HEMOGLOBIN 31.7 pg (27.0-33.4); MEAN CORPUSCULAR HGB CONC 33.4 g/dL (32.0-36.0); MEAN CORPUSCULAR VOLUME 95 fl (80-97); MONOCYTES % (AUTO) 6.2 % (3-13); RED BLOOD COUNT 4.42 10^6/uL (4.35-5.55); RED CELL DISTRIBUTION WIDTH 15.4 % (11.5-14.0); SEGMENTED NEUTROPHILS % (AUTO) 71.8 % (42-78); WHITE BLOOD COUNT 8.3 10^3/uL (4.0-10.5)
[2017-01-03 05:03] LABS: ANION GAP 10 (5-19); BLOOD UREA NITROGEN 51 mg/dL (7-20); CALCIUM 8.4 mg/dL (8.4-10.2); CARBON DIOXIDE 20 mmol/L (22-30); CHLORIDE 123 mmol/L (98-107); CREATININE RESULT 1.05 mg/dL (0.52-1.25); GLUCOSE 114 mg/dL (75-110); SODIUM 152.9 mmol/L (137-145)
[2017-01-03] MEDS: LANSOPRAZOLE 30 MG TAB.RAP.DR PO SCH (06:12)
[2017-01-03] MEDS ORDERED: POTASSI CL 20 MEQ/50 ML RIDER 20 MEQ/50 ML RTUPB IV ONE (07:45)
[2017-01-03] MEDS: DOCUSATE SODIUM 100 MG CAPSULE PO SCH (09:29)
[2017-01-03] MEDS: ASPIRIN 325 MG TABLET, ENT COATED PO SCH (09:30)
[2017-01-03] MEDS: METOPROLOL TARTRATE 25 MG TABLET PO SCH ×2 (09:30→22:26)
[2017-01-03] MEDS: POTASSIUM CHLORIDE 20 MEQ/15 ML UDCUP PO SCH ×2 (09:30→22:26)
[2017-01-03] MEDS: APIXABAN 2.5 MG TABLET PO SCH ×2 (09:32→17:31)
[2017-01-03] MEDS: POTASSI CL 20 MEQ/D5-1/4NS 1L 1,000 ML IV PRN (10:36)
--- NOTE | 2017-01-03 11:19 | PDOC PROGRESS REPORT ---
Subjective Progress Note for:: 01/03/17 Subjective:: reason for visit: f/u ARF, severe metabolic acidosis, severe CM, NSTEMI hospital course: KATERINA FLORES is a 76 year old male presents from home where his only son Tanvir lives with and cares for him, noted he couldn't get himself up off the toilet this morning. Suman normally stays at home alone while Tanvir works but has noted increasing confusion over the last couple of weeks, progressive weakness and at this rate Tanvir doesn't think he can continue to care for him anymore and is asking for a dementia evaluation. Tanvir reports increased confusion, short term memory loss and increasingly living in the past. The patient is too confused to answer any questions at this time. Tanvir reports decreased intake, prefers to drink a couple of Mtn Dews and smoke cigarettes, occasionally will drink a couple of Pleitez lites. He reports no worsening of his inguinal hernia, no change in his bowel habits or urine output , no fevers or chills, n/v/d, cough with phlegm, chest pain or palpitations. eval in ED shows new ARF and metabolic acidosis and we were asked to admit for further eval and managment. review of the medical record shows he was in hospital 11/19 for afib with RVR and had eval of his inquinal hernia at that time, not thought to be good candidate for surgery due to his heart disease and general condition. echo at that time shows severe RAMIRO, EF<20%, mod to severe valvular disease. repeat labs show he is becoming more acidotic though his lactic acid is now normal his bicarb continues to fall likely from his renal failure with continued home use of diamox for reasons that are not immediately clear; also, possibly complicated by infectious process. so far the best possibility appears to be GI with hydrops gallbladder seen on ct a/p without contrast, incidentally the large Rt inguinal hernia again seen but without evidence of incarceration. will add empiric Invanz, chg fluids to bicarb gtt and add oral KCL. Dr bravo consulted, agrees with bicarb gtt and move to ICU for more careful monitoring. still need to clarify why he is on diamox. He survived the night, remains acidotic and confused, mostly mumbling and unable to consistently answer questions. nurses report several bursts of NSVT during which he is asymptomatic, otherwise no new events overnight. ROS: unobtainable due to pt's mental state Physical Exam Vital Signs: Temp Pulse Resp BP Pulse Ox 97.9 F 92 18 126/69 H 97 01/03/17 07:59 01/03/17 07:59 01/03/17 10:00 01/03/17 09:47 01/03/17 10:00 Intake & Output 01/02/17 01/03/17 01/04/17 06:59 06:59 06:59 Intake Total 1971 3626 Output Total 1840 2910 Balance 131 716 Weight 71 kg 70.8 kg General appearance: PRESENT: no acute distress, disheveled, hard of hearing, thin, well-developed. not well-nourished Head exam: PRESENT: atraumatic, normocephalic Eye exam: PRESENT: EOMI. ABSENT: conjunctival injection, scleral icterus Mouth exam: PRESENT: very dry mucosa remains, neck supple, tongue midline Neck exam: PRESENT: full ROM. ABSENT: tenderness Respiratory exam: PRESENT: clear to auscultation kiera, unlabored. ABSENT: accessory muscle use Cardiovascular exam: PRESENT: irregular rhythm, afib on monitor rate controlled. ABSENT: systolic murmur, tachycardia Pulses: PRESENT: normal radial pulses, +1 pedal pulses bilateral Vascular exam: ABSENT: normal capillary refill GI/Abdominal exam: PRESENT: normal bowel sounds, soft, other - large Rt inquinal hernia into the scrotal sac, nontender, no overlying erythema or heat but bowel sounds evident in the scrotum. Gentrourinary exam: PRESENT: indwelling catheter, massive scrotum due to hernia Extremities exam: ABSENT: calf tenderness, pedal edema Musculoskeletal exam: PRESENT: full ROM. ABSENT: ambulatory - very weak, 3/5 at best in legs, 4/5 arms Psychiatric exam: PRESENT: anxious, confused Focused psych exam: PRESENT: no longer paranoid NEURO: speech is not slurred, moves all 4 ext's, diminished patella reflexes, no facial asymmetry and only able to process simple one step commands Skin exam: PRESENT: dry, erythema - of the perineal skin folds and post scrotum with scaling skin, warm Results Laboratory Results: 01/03/17 04:30 01/03/17 04:30 01/02/17 01/03/17 01/03/17 15:55 04:30 04:30 WBC 8.3 RBC 4.42 Hgb 14.0 Hct 42.0 MCV 95 MCH 31.7 MCHC 33.4 RDW 15.4 H Plt Count 102 L Seg Neutrophils % 71.8 Lymphocytes % 20.9 Monocytes % 6.2 Eosinophils % 0.8 Basophils % 0.3 Absolute Neutrophils 5.9 Absolute Lymphocytes 1.7 Absolute Monocytes 0.5 Absolute Eosinophils 0.1 Absolute Basophils 0.0 Sodium 154.4 H 152.9 H Potassium 3.4 L 3.0 L* Chloride 124 H 123 H Carbon Dioxide 19 L 20 L Anion Gap 11 10 BUN 69 H 51 H Creatinine 1.40 H 1.05 Est GFR ( Amer) 59 L > 60 Est GFR (Non-Af Amer) 49 L > 60 Glucose 114 H 114 H Calcium 8.6 8.4 01/01/17 01/01/17 01/01/17 11:37 11:37 16:45 Creatine Kinase 117 155 CK-MB (CK-2) 6.42 H Troponin I 0.077 01/01/17 01/01/17 01/01/17 16:45 22:51 22:51 Creatine Kinase 156 CK-MB (CK-2) 8.40 H 9.26 H Troponin I 0.112 0.117 01/02/17 01/03/17 15:55 04:30 Creatine Kinase CK-MB (CK-2) Troponin I 0.092 0.067 Assessment & Plan - Diagnosis (1) Acute metabolic encephalopathy Is this a current diagnosis for this admission?: Yes (2) NSTEMI (non-ST elevated myocardial infarction) Is this a current diagnosis for this admission?: Yes (3) Metabolic acidosis Is this a current diagnosis for this admission?: YesPlan: improved, will chg IVFs to hypotonic and stop the bicarb gtt; multifactorial with component of dehydration, starvation, renal failure, and diamox. continue efforts to rehydrate minimizing chloride content and utilizing bicarb to counteract the acidosis with Dr Bravo's assistance. monitor BMP and adjust treatment based on clinical condition, especially in light of his CM and impaired renal function. (4) Acute renal failure Qualifiers: Acute renal failure type: unspecified Qualified Code(s): N17.9 - Acute kidney failure, unspecified Is this a current diagnosis for this admission?: YesPlan: slightly improved with hydration but not back to baseline; likely volume depletion due to decreased oral intake worsened by continued use of diuretic and ACEi for control of his hypertension. admit and attempt to resuscitate his kidney with fluid keeping in mind his severe CM and known EF <20%. (5) Lactic acidosis Is this a current diagnosis for this admission?: Yes (6) Cardiomyopathy Qualifiers: Cardiomyopathy type: ischemic Qualified Code(s): I25.5 - Ischemic cardiomyopathy Is this a current diagnosis for this admission?: Yes (7) NSVT (nonsustained ventricular tachycardia) Is this a current diagnosis for this admission?: Yes (8) Chronic a-fib Is this a current diagnosis for this admission?: Yes (9) Generalized weakness Is this a current diagnosis for this admission?: Yes (10) Inguinal hernia Qualifiers: Obstruction and gangrene presence: without obstruction or gangrene Laterality: unilateral Recurrence: recurrent Qualified Code(s): K40.91 - Unilateral inguinal hernia, without obstruction or gangrene, recurrent Is this a current diagnosis for this admission?: Yes (11) Hydrops of gallbladder Is this a current diagnosis for this admission?: YesPlan: empiric abx but not clear this is really contributing, will stop abx and monitor - Time Time Spent with patient: 25-34 minutes Medications reviewed and adjusted accordingly: Yes - Plan Summary Plan Summary: ok to downgrade to [facility]
--- NOTE | 2017-01-03 13:44 | EKG REPORT ---
SEVERITY:- ABNORMAL ECG - ATRIAL FIBRILLATION INCOMPLETE RIGHT BUNDLE BRANCH BLOCK PROBABLE ANTEROSEPTAL INFARCT, AGE INDETERM ST DEPRESSION, CONSIDER ISCHEMIA, VS LVH : Confirmed by: Ashtyn Rubio 03-Jan-2017 13:44:04
[2017-01-03 15:26] LABS: ANION GAP 9 (5-19); BLOOD UREA NITROGEN 42 mg/dL (7-20); CALCIUM 8.2 mg/dL (8.4-10.2); CARBON DIOXIDE 20 mmol/L (22-30); CHLORIDE 121 mmol/L (98-107); GLUCOSE 115 mg/dL (75-110); SODIUM 150.2 mmol/L (137-145)
[2017-01-03 15:30] LABS: POTASSIUM 2.8 mmol/L (3.6-5.0)
[2017-01-03] MEDS: POTASSI CL 20 MEQ/50 ML RIDER 20 MEQ/50 ML RTUPB IV SCH ×3 (16:39→22:25)
--- NOTE | 2017-01-03 21:49 | PROGRESS NOTE E ---
Progress Note NAME: KATERINA FLORES : 1940 AGE: 76Y DATE: 01/03/2017 ROOM: 430 SUBJECTIVE: Note that the patient is confused. He appears to be comfortable. He continues to be in atrial fibrillation with controlled ventricular response. The patient appears to have orthopnea. Although confused, he denies any chest pain. There are no TIA or CVA symptoms. The son is at the bedside and discussed the patient's condition with the son. OBJECTIVE: GENERAL: On examination, the patient is in no acute distress. The patient appears to be of frail built and chronically ill. There are no accessory muscles of respiration in use. VITAL SIGNS: He is afebrile with a temperature of 98.3 degrees Fahrenheit, his pulse is 68 beats per minute, blood pressure is 126/70, respirations are 18 per minute and O2 saturations are 100% on room air. HEAD: Atraumatic, normocephalic. EYES: Pupils are equal, round, regular, reactive to light and accommodation. Extraocular movements are normal. There is no conjunctival pallor. There is no scleral icterus. EARS, NOSE, AND THROAT: Negative. NECK: Supple. There is no JVD. Carotids are equal. There is no bruit. There is no goiter. There is no lymphadenopathy. JVD is within normal limits. Trachea is central. LUNGS: Clear to auscultation and percussion. There is no chest wall tenderness. There is no accessory muscles of respiration in use. HEART: S1, S2 is heard. S1 is of variable intensity. There is no S3 gallop. There is no S4 gallop. There is a systolic murmur in the lower sternal border and the apex. There is no rub. ABDOMEN: Soft, nontender. There is no hepatosplenomegaly. Bowel sounds are well heard. There are no tenderness areas or masses. EXTREMITIES: Femorals are slightly diminished. There is no femoral bruit. Leg pulses are diminished. There is no pedal edema. There is no DVT or cellulitis. There is no calf tenderness. CENTRAL NERVOUS SYSTEM: The patient is conscious, awake and alert, oriented x3 with no focal deficits. PSYCHIATRIC: The patient is confused but does not appear to be anxious or depressed. LABORATORY DATA: The patient's white count is 8300, hemoglobin is 14, hematocrit is 42, and platelet count is 102,000. The patient's sodium is *150.2, potassium 2.8, chloride 121, CO2 is 20, the patient's BUN is 42, creatinine 1.0, and his GFR is greater than 60, glucose is 115, calcium is 8.2. His troponin I is indeterminate/negative at 0.067; yesterday it was 0.092, hence is trending down. No definitive evidence of non-ST elevation PR. IMPRESSION: 1. TROPONIN I ELEVATION BORDERLINE. 2. ABNORMAL EKG WITH ISCHEMIA ON THE EKG. 3. ATRIAL FIBRILLATION WITH NOW CONTROL VENTRICULAR RESPONSE. Note that the patient is on Eliquis and metoprolol which has controlled the rate. 4. HYPOKALEMIA. Potassium is being replaced. 5. HYPERNATREMIA. Will recommend giving the patient free water. 6. CARDIOMYOPATHY. 7. CONGESTIVE HEART FAILURE. At present seems to be compensated. 8. INGUINAL HERNIA. 9. DEMENTIA. 10. DNR. The patient's son is the surrogate healthcare decision maker. Note: 25 minutes spent on this patient with more than 50% of the time spent on direct patient care. As mentioned earlier, his medications have been reviewed. Would recommend discontinuing the patient's aspirin since the patient is already on Eliquis and the patient appears to be very frail and the patient is 76 years in age and, hence, increased risk of bleeding. Note: Coordination of care done with other caregiving providers on the case. This is a moderately complex medical decision-making involved in this case. Will follow with you. Discussed with the hospitalist taking care of the patient and coordination of care done. Discussed with the patient's son all of the above. Thanking you. DICTATING PHYSICIAN: MELINDA LOMBARDO M.D. [id number] PHY#: [id number] ID: [id number] JOB#: [id number] ACCT: [id number] cc: >
[2017-01-03] MEDS: ATORVASTATIN CALCIUM 80 MG TABLET PO SCH (22:25)
[2017-01-03] MEDS ORDERED: POTASSI CL 20 MEQ/D5-1/4NS 1L 1,000 ML IV ONE (22:25)
[2017-01-03 23:31] LABS: ANION GAP 9 (5-19); BLOOD UREA NITROGEN 37 mg/dL (7-20); CALCIUM 8.2 mg/dL (8.4-10.2); CARBON DIOXIDE 20 mmol/L (22-30); CHLORIDE 120 mmol/L (98-107); GLUCOSE 112 mg/dL (75-110); POTASSIUM 3.2 mmol/L (3.6-5.0); SODIUM 148.6 mmol/L (137-145)
[2017-01-03 23:59] LABS: ADD ON TESTING BLD IN LAB ACKNOWLEDGE
[2017-01-04 00:06] LABS: MAGNESIUM 2.2 mg/dL (1.6-2.3)
[2017-01-04] MEDS ORDERED: POTASSIUM CHLORIDE 20 MEQ/15 ML UDCUP PO ONE ×2 (00:15→02:00)
[2017-01-04] MEDS: NITROGLYCERIN 2% OINTMENT 1 GM PACKET TP SCH ×3 (04:04→14:48)
[2017-01-04] MEDS: LANSOPRAZOLE 30 MG TAB.RAP.DR PO SCH (05:12)
[2017-01-04 05:57] LABS: ABSOLUTE EOSINOPHILS # (AUTO) 0.1 10^3/uL (0.0-0.6); ABSOLUTE LYMPHOCYTES (AUTO) 1.6 10^3/uL (0.5-4.7); ABSOLUTE MONOCYTES (AUTO) 0.5 10^3/uL (0.1-1.4); ABSOLUTE NEUT (AUTO) 5.9 10^3/uL (1.7-8.2); BASOPHILS % (AUTO) 0.4 % (0-2); EOSINOPHILS % (AUTO) 1.1 % (0-6); HEMATOCRIT 41.1 % (37.9-51.0); HEMOGLOBIN 13.5 g/dL (13.5-17.0); HGB HCT DIFFERENCE -0.6; LYMPHOCYTES % (AUTO) 20.2 % (13-45); MEAN CORPUSCULAR HEMOGLOBIN 31.8 pg (27.0-33.4); MEAN CORPUSCULAR HGB CONC 32.9 g/dL (32.0-36.0); MEAN CORPUSCULAR VOLUME 97 fl (80-97); MONOCYTES % (AUTO) 5.6 % (3-13); RED BLOOD COUNT 4.25 10^6/uL (4.35-5.55); SEGMENTED NEUTROPHILS % (AUTO) 72.7 % (42-78); WHITE BLOOD COUNT 8.2 10^3/uL (4.0-10.5)
[2017-01-04 06:07] LABS: ALANINE AMINOTRANSFERASE 33 U/L (21-72); ALBUMIN 2.9 g/dL (3.5-5.0); ALKALINE PHOSPHATASE 78 U/L (38-126); ANION GAP 9 (5-19); ASPARTATE AMINO TRANSFERASE 25 U/L (17-59); BILIRUBIN,DIRECT 0.5 mg/dL (0.0-0.4); BILIRUBIN,TOTAL 1.9 mg/dL (0.2-1.3); BLOOD UREA NITROGEN 33 mg/dL (7-20); CALCIUM 8.2 mg/dL (8.4-10.2); CARBON DIOXIDE 20 mmol/L (22-30); CHLORIDE 119 mmol/L (98-107); CREATININE RESULT 0.94 mg/dL (0.52-1.25); GLUCOSE 117 mg/dL (75-110); POTASSIUM 3.3 mmol/L (3.6-5.0); SODIUM 147.9 mmol/L (137-145); TOTAL PROTEIN 6.1 g/dL (6.3-8.2)
[2017-01-04] MEDS: APIXABAN 2.5 MG TABLET PO SCH ×2 (09:25→17:26)
[2017-01-04] MEDS: ASPIRIN 325 MG TABLET, ENT COATED PO SCH (09:25)
[2017-01-04] MEDS: POTASSIUM CHLORIDE 20 MEQ/15 ML UDCUP PO SCH ×2 (09:25→21:32)
[2017-01-04] MEDS: DOCUSATE SODIUM 100 MG CAPSULE PO SCH (09:25)
[2017-01-04] MEDS: METOPROLOL TARTRATE 25 MG TABLET PO SCH ×2 (09:25→21:31)
[2017-01-04] MEDS: POTASSI CL 20 MEQ/D5-1/4NS 1L 1,000 ML IV PRN (14:53)
--- NOTE | 2017-01-04 14:59 | PDOC PROGRESS REPORT ---
Subjective Progress Note for:: 01/04/17 Subjective:: reason for visit: f/u ARF, severe metabolic acidosis, severe CM, NSTEMI hospital course: KATERINA FLORES is a 76 year old male presents from home where his only son Tanvir lives with and cares for him, noted he couldn't get himself up off the toilet this morning. Pt normally stays at home alone while Tanvir works but has noted increasing confusion over the last couple of weeks, progressive weakness and at this rate Tanvir doesn't think he can continue to care for him anymore and is asking for a dementia evaluation. Tanvir reports increased confusion, short term memory loss and increasingly living in the past. The patient is too confused to answer any questions at this time. Tanvir reports decreased intake, prefers to drink a couple of Mtn Dews and smoke cigarettes, occasionally will drink a couple of Pleitez lites. He reports no worsening of his inguinal hernia, no change in his bowel habits or urine output , no fevers or chills, n/v/d, cough with phlegm, chest pain or palpitations. eval in ED shows new ARF and metabolic acidosis and we were asked to admit for further eval and managment. review of the medical record shows he was in hospital 11/19 for afib with RVR and had eval of his inquinal hernia at that time, not thought to be good candidate for surgery due to his heart disease and general condition. echo at that time shows severe RAMIRO, EF<20%, mod to severe valvular disease. repeat labs show he is becoming more acidotic though his lactic acid is now normal his bicarb continues to fall likely from his renal failure with continued home use of diamox for reasons that are not immediately clear; also, possibly complicated by infectious process. so far the best possibility appears to be GI with hydrops gallbladder seen on ct a/p without contrast, incidentally the large Rt inguinal hernia again seen but without evidence of incarceration. will add empiric Invanz, chg fluids to bicarb gtt and add oral KCL. Dr bravo consulted, agrees with bicarb gtt and move to ICU for more careful monitoring. still need to clarify why he is on diamox. He survived though he remains acidotic and confused. He is a bit more interactive and at times appropriate. ROS: unobtainable due to pt's mental state Physical Exam Vital Signs: Temp Pulse Resp BP Pulse Ox 98.4 F 73 18 127/54 H 99 01/04/17 11:55 01/04/17 11:55 01/04/17 11:55 01/04/17 11:55 01/04/17 11:55 Intake & Output 01/03/17 01/04/17 01/05/17 06:59 06:59 06:59 Intake Total 3626 1507 Output Total 2910 950 Balance 716 557 Weight 70.8 kg 74.1 kg General appearance: PRESENT: no acute distress, disheveled, hard of hearing, thin, well-developed Head exam: PRESENT: atraumatic, normocephalic Eye exam: PRESENT: EOMI. ABSENT: conjunctival injection, scleral icterus Mouth exam: PRESENT: dry mucosa remains, neck supple, tongue midline Neck exam: PRESENT: full ROM. ABSENT: tenderness Respiratory exam: PRESENT: clear to auscultation kiera, unlabored. ABSENT: accessory muscle use Cardiovascular exam: PRESENT: irregular rhythm, afib on monitor rate controlled. ABSENT: systolic murmur, tachycardia Pulses: PRESENT: normal radial pulses, +1 pedal pulses bilateral Vascular exam: ABSENT: normal capillary refill GI/Abdominal exam: PRESENT: normal bowel sounds, soft, other - large Rt inquinal hernia into the scrotal sac, nontender, no overlying erythema or heat but bowel sounds evident in the scrotum. Gentrourinary exam: PRESENT: indwelling catheter, massive scrotum due to hernia Extremities exam: ABSENT: calf tenderness, pedal edema Musculoskeletal exam: PRESENT: full ROM. ABSENT: ambulatory - very weak, 3/5 at best in legs, 4/5 arms Psychiatric exam: PRESENT: no longer anxious, confused Focused psych exam: PRESENT: no longer paranoid NEURO: speech is not slurred, moves all 4 ext's, diminished patella reflexes, no facial asymmetry and only able to process simple one step commands Skin exam: PRESENT: dry, erythema - of the perineal skin folds and post scrotum with scaling skin, warm Results Laboratory Results: 01/04/17 04:57 01/04/17 04:57 01/03/17 01/03/17 01/03/17 14:55 23:00 23:00 WBC RBC Hgb Hct MCV MCH MCHC RDW Plt Count Seg Neutrophils % Lymphocytes % Monocytes % Eosinophils % Basophils % Absolute Neutrophils Absolute Lymphocytes Absolute Monocytes Absolute Eosinophils Absolute Basophils Sodium 150.2 H 148.6 H Potassium 2.8 L* 3.2 L Chloride 121 H 120 H Carbon Dioxide 20 L 20 L Anion Gap 9 9 BUN 42 H 37 H Creatinine 1.00 0.90 Est GFR ( Amer) > 60 > 60 Est GFR (Non-Af Amer) > 60 > 60 Glucose 115 H 112 H Calcium 8.2 L 8.2 L Magnesium 2.2 Total Bilirubin AST ALT Alkaline Phosphatase Total Protein Albumin 01/04/17 01/04/17 04:57 04:57 WBC 8.2 RBC 4.25 L Hgb 13.5 Hct 41.1 MCV 97 MCH 31.8 MCHC 32.9 RDW 15.0 H Plt Count 97 L Seg Neutrophils % 72.7 Lymphocytes % 20.2 Monocytes % 5.6 Eosinophils % 1.1 Basophils % 0.4 Absolute Neutrophils 5.9 Absolute Lymphocytes 1.6 Absolute Monocytes 0.5 Absolute Eosinophils 0.1 Absolute Basophils 0.0 Sodium 147.9 H Potassium 3.3 L Chloride 119 H Carbon Dioxide 20 L Anion Gap 9 BUN 33 H Creatinine 0.94 Est GFR ( Amer) > 60 Est GFR (Non-Af Amer) > 60 Glucose 117 H Calcium 8.2 L Magnesium Total Bilirubin 1.9 H AST 25 ALT 33 Alkaline Phosphatase 78 Total Protein 6.1 L Albumin 2.9 L 01/01/17 01/01/17 01/01/17 11:37 11:37 16:45 Creatine Kinase 117 155 CK-MB (CK-2) 6.42 H Troponin I 0.077 01/01/17 01/01/17 01/01/17 16:45 22:51 22:51 Creatine Kinase 156 CK-MB (CK-2) 8.40 H 9.26 H Troponin I 0.112 0.117 01/02/17 01/03/17 15:55 04:30 Creatine Kinase CK-MB (CK-2) Troponin I 0.092 0.067 Assessment & Plan - Diagnosis (1) Acute metabolic encephalopathy Is this a current diagnosis for this admission?: YesPlan: slowly improving. multifactorial with a component of acidosis and numerous electrolyte abnls especially the azotemia and hyernatremia. continue to address the underlying malfunctions as his condition will allow and hopefully his mentation will clear though i suspect contribution from undiagnosed dementia , probably vascular type confounder all this. (2) NSTEMI (non-ST elevated myocardial infarction) Is this a current diagnosis for this admission?: YesPlan: stable, probable Type 2 NSTEMI from stress of the above. Dr Masterson consulted and expectant medication management as aggressively as his condition will allow. added asa, statin and continue beta keya. no ACEi due to renal failure and no NTG due to low BPs. (3) Metabolic acidosis Is this a current diagnosis for this admission?: YesPlan: improved, adjust IVFs as condition dictates; multifactorial with component of dehydration, starvation, renal failure, and diamox. continue efforts to rehydrate minimizing chloride content and utilizing bicarb to counteract the acidosis with Dr Bravo's assistance. monitor BMP and adjust treatment based on clinical condition, especially in light of his CM and impaired renal function. (4) Acute renal failure Qualifiers: Acute renal failure type: unspecified Qualified Code(s): N17.9 - Acute kidney failure, unspecified Is this a current diagnosis for this admission?: YesPlan: resolved with hydration but not back to baseline; likely volume depletion due to decreased oral intake worsened by continued use of diuretic and ACEi for control of his hypertension. admit and attempt to resuscitate his kidney with fluid keeping in mind his severe CM and known EF <20%. (5) Lactic acidosis Is this a current diagnosis for this admission?: Yes (6) Cardiomyopathy Qualifiers: Cardiomyopathy type: ischemic Qualified Code(s): I25.5 - Ischemic cardiomyopathy Is this a current diagnosis for this admission?: Yes (7) NSVT (nonsustained ventricular tachycardia) Is this a current diagnosis for this admission?: Yes (8) Chronic a-fib Is this a current diagnosis for this admission?: Yes (9) Generalized weakness Is this a current diagnosis for this admission?: Yes (10) Inguinal hernia Qualifiers: Obstruction and gangrene presence: without obstruction or gangrene Laterality: unilateral Recurrence: recurrent Qualified Code(s): K40.91 - Unilateral inguinal hernia, without obstruction or gangrene, recurrent Is this a current diagnosis for this admission?: Yes (11) Hydrops of gallbladder Is this a current diagnosis for this admission?: Yes - Time Time Spent with patient: 25-34 minutes Medications reviewed and adjusted accordingly: Yes
--- NOTE | 2017-01-04 21:24 | PROGRESS NOTE E ---
Progress Note NAME: KATERINA FLORES : 1940 AGE: 76Y DATE: 01/04/2017 ROOM: 430 SUBJECTIVE: The patient appears to be confused but in no acute distress. His heart rate seems to be controlled. The patient does not appear to have orthopnea. Although he is confused, he denies any chest pain. There are no TIA or CVA symptoms. OBJECTIVE: GENERAL: The patient is confused. The patient at present is of frail built. He appears to be chronically ill. VITAL SIGNS: He is afebrile with a temperature of 98.4 degrees Fahrenheit, pulse is 73 beats per minute, blood pressure 127/54, respirations are 18 per minute and O2 saturations are 99% on room air. HEAD: Atraumatic, normocephalic. EYES: Pupils are equal, round, regular, reactive to light and accommodation. Extraocular movements are normal. There is no conjunctival pallor. There is no scleral icterus. EARS, NOSE, AND THROAT: Negative. NECK: Supple. There is no JVD. Carotids are equal. There is no bruit. There is no goiter. There is no lymphadenopathy. JVD is within normal limits. Trachea is central. LUNGS: Clear to auscultation and percussion. There is no chest wall tenderness. There are no accessory muscles of respiration in use. HEART: S1, S2 is heard. S1 is of variable intensity. There is no S3 gallop. There is no S4 gallop. There is a systolic murmur in the left sternal border and the apex. There is no rub. ABDOMEN: Soft, nontender. There is no hepatosplenomegaly. Bowel sounds are well heard. There are no tenderness areas or masses. EXTREMITIES: Femorals are slightly diminished. There are no femoral bruits. Leg pulses are diminished. There is no pedal edema. There is no DVT or cellulitis. There is no calf tenderness. CENTRAL NERVOUS SYSTEM: The patient is conscious, awake and alert, oriented x3 with no focal deficits. PSYCHIATRIC: The patient is confused but does not appear to be anxious, depressed or agitated. LABORATORY DATA: The patient's white count is 8200, hemoglobin is 13.5, hematocrit is 41.1, and his platelet count is 97,000. The patient's sodium is 147.9, potassium is low at 3.3, chloride is 119, the patient's CO2 is 20, the patient's BUN is 33, creatinine is 0.94, GFR is greater than 60, his glucose is 117, and his calcium is 8.2. His direct bilirubin is 1.9, his total bilirubin is 1.9, his direct bilirubin is 0.5, and the rest of the liver function tests are normal. His albumin is low at 2.9 and his total protein is 6.1. On 01/01 the patient's dig level was 1.74. IMPRESSION: 1. ELEVATED TROPONIN IS BORDERLINE. Is trending down. 2. ABNORMAL EKG WITH ISCHEMIA ON THE EKG. 3. ATRIAL FIBRILLATION WITH NOW CONTROL VENTRICULAR RESPONSE. 4. HYPOKALEMIA. Replace potassium. 5. HYPERNATREMIA. Continue giving the patient free water. 6. CARDIOMYOPATHY. 7. CONGESTIVE HEART FAILURE. At present seems to be compensated. 8. INGUINAL HERNIA. 9. DEMENTIA. 10. DNR. NOTE: Twenty-five minutes spent on this patient with more than 50% of the time spent on direct patient care. This involved moderately complex medical decision-making. The patient appears to be stable. There is not much to offer from cardiology [id number]. Would continue the patient on Eliquis at 2.9 mg p.o. b.i.d. Would stop the patient's aspirin in view of the patient's age and the patient being on Eliquis. Continue atorvastatin. Replace the patient's potassium. Continue ipratropium albuterol nebulizer treatment. Continue lansoprazole. Continue metoprolol at 25 mg p.o. q.12 h. Continue nitroglycerin 1 g topically to chest wall q.6 h. Would change this to Transderm nitro patch 0.5 mg per hour daily. Would replace the patient's potassium. Note: The patient's medications have been reviewed and medications changed. Discussed with the hospitalist taking care of the patient and coordination of care done. Will sign off. Thanking you. DICTATING PHYSICIAN: MELINDA LOMBARDO M.D. [id number] PHY#: [id number] ID: [id number] JOB#: [id number] ACCT: [id number] cc: >
[2017-01-04] MEDS: ATORVASTATIN CALCIUM 80 MG TABLET PO SCH (21:31)
[2017-01-05] MEDS: LANSOPRAZOLE 30 MG TAB.RAP.DR PO SCH (06:01)
[2017-01-05] MEDS: POTASSI CL 20 MEQ/D5-1/4NS 1L 1,000 ML IV PRN ×2 (06:04→21:03)
[2017-01-05 06:26] LABS: ANION GAP 9 (5-19); BLOOD UREA NITROGEN 22 mg/dL (7-20); CALCIUM 8.3 mg/dL (8.4-10.2); CARBON DIOXIDE 20 mmol/L (22-30); CHLORIDE 113 mmol/L (98-107); CREATININE RESULT 0.84 mg/dL (0.52-1.25); GLUCOSE 101 mg/dL (75-110); POTASSIUM 3.2 mmol/L (3.6-5.0); SODIUM 141.9 mmol/L (137-145)
[2017-01-05 06:36] LABS: ABSOLUTE EOSINOPHILS # (AUTO) 0.1 10^3/uL (0.0-0.6); ABSOLUTE LYMPHOCYTES (AUTO) 1.7 10^3/uL (0.5-4.7); ABSOLUTE MONOCYTES (AUTO) 0.4 10^3/uL (0.1-1.4); ABSOLUTE NEUT (AUTO) 5.4 10^3/uL (1.7-8.2); BASOPHILS % (AUTO) 0.3 % (0-2); EOSINOPHILS % (AUTO) 1.3 % (0-6); HEMATOCRIT 39.8 % (37.9-51.0); HEMOGLOBIN 13.3 g/dL (13.5-17.0); HGB HCT DIFFERENCE 0.1; MEAN CORPUSCULAR HGB CONC 33.4 g/dL (32.0-36.0); MEAN CORPUSCULAR VOLUME 96 fl (80-97); MONOCYTES % (AUTO) 5.8 % (3-13); RED BLOOD COUNT 4.15 10^6/uL (4.35-5.55); RED CELL DISTRIBUTION WIDTH 14.9 % (11.5-14.0); SEGMENTED NEUTROPHILS % (AUTO) 70.6 % (42-78); WHITE BLOOD COUNT 7.7 10^3/uL (4.0-10.5)
[2017-01-05] MEDS: DOCUSATE SODIUM 100 MG CAPSULE PO SCH (09:15)
[2017-01-05] MEDS: ASPIRIN 325 MG TABLET, ENT COATED PO SCH (09:15)
[2017-01-05] MEDS: METOPROLOL TARTRATE 25 MG TABLET PO SCH ×2 (09:15→23:42)
[2017-01-05] MEDS: APIXABAN 2.5 MG TABLET PO SCH ×2 (09:16→17:07)
[2017-01-05] MEDS: POTASSIUM CHLORIDE 20 MEQ/15 ML UDCUP PO SCH ×3 (09:16→23:42)
[2017-01-05] MEDS ORDERED: NITROGLYCERIN 5 MG (0.2 MG/HR) PATCH.TD24 TD SCH (10:00)
--- NOTE | 2017-01-05 10:13 | CONSULTATION REPORT E ---
Consultation Report NAME: KATERINA FLORES : 1940 AGE: 76Y DATE: 01/02/2017 430 A TO: MELINDA LOMBARDO M.D. FROM: NIKA STEPHEN Requesting Physician REASON FOR CONSULTATION: Elevated troponin I and ischemic EKG changes. HISTORY OF PRESENT ILLNESS: Note: Unable to get a history from the patient. History obtained from old charts and present chart. The patient is an 85-year-old male with a history of chronic atrial fibrillation not on chronic anticoagulation and history of hypertension and cardiomyopathy with ejection fraction of less than 20% who lives with his son at home and as per the records, the patient is not been drinking fluids much and has been drinking Mountain Dew and some beers and also continues to smoke. The patient has been having increasing confusion and also was found to have acute renal failure with metabolic acidosis. Note that the patient was on Diamox in the past. Dictation ends here DICTATING PHYSICIAN: MELINDA LOMBARDO M.D. [id number] [facility]#: [id number] ID: [id number] JOB#: [id number] ACCT: [id number] cc:MELINDA LOMBARDO M.D. >
--- NOTE | 2017-01-05 10:15 | CONSULTATION REPORT E ---
Consultation Report NAME: KATERINA FLORES : 1940 AGE: 76Y DATE: 01/02/2017 430 A TO: MELINDA LOMBARDO M.D. FROM: NIKA STEPHEN Requesting Physician REASON FOR CONSULTATION: This patient with elevated troponin I and ischemic changes on his EKG. HISTORY OF PRESENT ILLNESS: Note that the patient is confused and he is unable to give a history. History will get from old chart and correct charts. Patient is a 76-year-old male with a history of atrial fibrillation not on chronic anticoagulation, hypertension, cardiomyopathy with an ejection fraction of less than 20% who lives with his son as per the notes. The son had stated that the patient was not drinking or eating much but was occasionally drinking Mountain Dew and also beer and now is smoking. The patient becoming increasingly confused and the patient was seen to be very confused in the emergency room and is respiratory distress. He was also found to be acidotic and due to the patient being on Diamox for prior alkalosis. The patient also was found to be in acute renal failure. The patient's EKG shows atrial fibrillation controlled ventricular response and the troponin I is mildly elevated in the non-ST elevation CA range but has not gone into the true non-ST elevation CA range but there are EKG changes suggestive of ischemia. The patient is not able to say whether he has chest pain or not. Also, the patient was on metoprolol rate controlled but was noted by the nurses to dip into the 30s with stable blood pressure, hence his metoprolol has been discontinued by me. There is no history of chest pain, leg edema or TIA or CVA symptoms and the patient has been increasingly confused. He has a history of hypertension, he has a history of depression. There is no history of fever, chills or rigors. PAST MEDICAL HISTORY: 1. Positive for history of atrial fibrillation not on chronic anticoagulation. 2. He has a history of acute on chronic episodes of systolic heart failure with LV ejection fraction less than 20%. 3. He has a history of hypertension. 4. He has also a history of cardiomyopathy with LV ejection fraction less than 20%. 5. He has a history of asthma during childhood but no recurrence, none at all. 6. He also has abdominal inguinal hernia with no increase in symptoms. 7. He also has history of depression. PAST SURGICAL HISTORY: 1. Positive for left inguinal hernia surgery. 2. Arthroscopic surgery of the right knee. SOCIAL HISTORY: The patient lives with his son. The patient smokes every day. The patient does drink beer but is not known whether there is excess. DISPOSITION: The patient is a DNR. His son Tanvir is the surrogate healthcare decision maker. FAMILY HISTORY: Positive for mother having dementia but is not able to get any other information. ALLERGIES: The patient has no known allergies. MEDICATIONS: 1. 650 mg p.o. q.4 hours. 2. Eliquis 2.5 mg p.o. b.i.d. 3. Aspirin 325 mg p.o. daily. 4. Atorvastatin 80 mg p.o. x1. 5. Atorvastatin 80 mg p.o. daily at bedtime. 6. Coreg 100 mg p.o. daily. 7. Invanz 1 g IV piggyback x1 and 0.5 g IV daily at bedtime. 8. Dextrose 5% with water IV one bag. 9. Potassium mEq. 10. He is on potassium 20 mEq IV q.12 hours. 11. He is on sodium bicarbonate 100 mEq in Dextrose 5% water 1000 mL IV x1 bag. 12. He is on Zofran 4 mg IV q.4 hours p.r.n. 13. His potassium chloride is 20 mEq q.12 hours. REVIEW OF SYSTEMS: Unable to obtain due to patient being confused. SURGICAL HISTORY: 1. Left inguinal hernia surgery. 2. Arthroscopic surgery of the right knee. PHYSICAL EXAMINATION: GENERAL: Patient is awake, confused. VITAL SIGNS: He is afebrile with a temperature of 97.5 degrees Fahrenheit. Pulse is 78 beats per minute, irregularly irregular, at times goes into the 30s. Blood pressure is 133/63, respirations are 14, 02 sats are 96% on room air. HEENT: Head is atraumatic, normocephalic. Eyes: Pupils are equal, round, regular, reactive to light. Ears: Tympanic membranes are intact. External auditory canals are clear. Nose: There is no deviated nasal septum. There is no inflammation of the nasal mucous membranes. Mouth and throat: The patient would not cooperate. SKIN: There are no skin rashes. There is no petechia or ecchymosis. There are no skin lesions. NECK: Supple. There is no JVD. Carotids are equal. There is no bruit. There is no goiter. Trachea is central. LUNGS: Bibasilar rales. HEART: S1 and S2 are heard. There is no S3 gallop. There is no S4 gallop. S1 is of variable intensive systolic murmur in the left sternal border in the apex. ABDOMEN: Soft, nontender. There is no guarding or rigidity. Bowel sounds are well heard. There is no hepatosplenomegaly. EXTREMITIES: There is no pedal edema. There is no calf tenderness. there is no DVT or cellulitis. There is no cyanosis or clubbing. Femorals are diminished. There are no femoral bruits. Leg pulses are diminished. CENTRAL NERVOUS SYSTEM: The patient is confused but moves all 4 extremities. PSYCHIATRIC: The patient does not appear to be agitated at present. DIAGNOSTIC TEST RESULTS: The patient's EKG shows atrial fibrillation, nonspecific IVCD with LAD. There is ST segment depression, diffuse leads, and T-inversion in lead IV to lead suggestive of ischemia. This seems to be more pronounced than prior EKGs. The patient's chest x-ray shows mixed interstitial and air space opacity with slight intermittent improvement. His EKG done today shows atrial fibrillation, probable anteroseptal infarct, age interminate, repolarization abnormalities with ischemia in the anterolateral leads and also there is some decreased interstitial depression in the inferior leads. Hence, there is diffuse ischemia. His white count is 10,900, hemoglobin is 14.4, hematocrit is 43.6 and his platelet count is 91,000. The patient's sodium is 153.6, potassium 3.4, chloride is 135, CO2 is 16. The patient's BUN is 80, creatinine is 1.78. GFR is reduced to 37. On admission his GFR was 25. His glucose is 105. His calcium is 8.6, alk phos is 2.8, magnesium is 2.8. The patient's CPK is normal. CK-MB is 9.26. His troponin I is 0.117. On the , it was 0.058 subsequently went up to 0.77 and subsequently 0.112 and subsequently again went up to 0.117 and subsequently has turned into 0.092. His ABG: Ph is 7.04, his pCO2 V-max is 44.3. His digoxin level is 1.74. His ProTime is 19.7. INR is 1.57. IMPRESSION: 1. ELEVATED TROPONIN I WHICH IS MILDLY ELEVATED ALMOST AT THE NON-ST ELEVATION CA/CA CUTOFF OF 0.012. 2. BRADYCARDIA. NOTE THIS MAY BE DUE TO A COMBINATION OF ACIDOSIS AND PATIENT BEING ON DIGOXIN AND METOPROLOL. Will stop the patient's metoprolol for now. The patient's digoxin has not been restarted. 3. ABNORMAL EKG CONSISTENT WITH ISCHEMIA. CANNOT BE SURE. 4. METABOLIC ACIDOSIS MOST LIKELY SECONDARY TO RENAL FAILURE AND POSSIBLY DUE TO ELEMENT OF CONGESTIVE HEART FAILURE. 5. ACUTE RENAL FAILURE. 6. CHRONIC ATRIAL FIBRILLATION NOT ON ANTICOAGULATION. 7. PROBABLE BILATERAL PNEUMONIA INTERSTITIAL. 8. HYPERTENSION. WELL CONTROLLED. 9. CARDIOMYOPATHY. LV EJECTION FRACTION LESS THAN 30%. 10. DYSLIPIDEMIA. 11. CONFUSION ? SECONDARY TO ACUTE RENAL FAILURE, METABOLIC ENCEPHALOPATHY SECONDARY TO THE PATIENT STARTED HAVING EARLY DEMENTIA. 12. ELECTROLYTE IMBALANCE WITH HYPERNATREMIA, HYPOKALEMIA AND HYPERMAGNESEMIA. 13. HISTORY OF DEPRESSION. RECOMMENDATIONS: The patient is not a candidate for very aggressive treatment. Will start the patient on topical nitrates. Would stop the patient's aspirin since the patient's advanced age. The patient has been started on . Continue hydration. Continue correcting the electrolyte imbalance. The patient's progress is guarded. Note the patient was seen at 2:00. Forty minutes spent on this patient with more than 50% of the time spent on direct patient care. His medications have been reviewed and adjusted and medications added. Note this is a highly complex medical decision-making involvement in this case. Discussed with other caregiving providers on the case. Note, appreciate Nephrology consultation note. Discussed with the hospitalist taking care of the patient. DICTATING PHYSICIAN: MELINDA LOMBARDO M.D. [id number] PHY#: [id number] ID: [id number] JOB#: [id number] ACCT: [id number] cc:MELINDA LOMBARDO M.D. >
[2017-01-05] MEDS: ISOSORBIDE MONONITRATE 60 MG TAB.ER.24H PO SCH (10:22)
--- NOTE | 2017-01-05 16:02 | PDOC PROGRESS REPORT ---
Subjective Subjective:: reason for visit: f/u ARF, severe metabolic acidosis, severe CM, NSTEMI hospital course: KATERINA FLORES is a 76 year old male presents from home where his only son Tanvir lives with and cares for him, noted he couldn't get himself up off the toilet this morning. Pt normally stays at home alone while Tanvir works but has noted increasing confusion over the last couple of weeks, progressive weakness and at this rate Tanvir doesn't think he can continue to care for him anymore and is asking for a dementia evaluation. Tanvir reports increased confusion, short term memory loss and increasingly living in the past. The patient is too confused to answer any questions at this time. Tanvir reports decreased intake, prefers to drink a couple of Mtn Dews and smoke cigarettes, occasionally will drink a couple of Pleitez lites. He reports no worsening of his inguinal hernia, no change in his bowel habits or urine output , no fevers or chills, n/v/d, cough with phlegm, chest pain or palpitations. eval in ED shows new ARF and metabolic acidosis and we were asked to admit for further eval and managment. review of the medical record shows he was in hospital 11/19 for afib with RVR and had eval of his inquinal hernia at that time, not thought to be good candidate for surgery due to his heart disease and general condition. echo at that time shows severe RAMIRO, EF<20%, mod to severe valvular disease. repeat labs showed he was becoming more acidotic though his lactic acid normalized his bicarb continued to fall likely from his renal failure with continued home use of diamox for reasons that are not immediately clear; also, possibly complicated by infectious process. Initially the possibility of hydrops gallbladder seen on ct a/p without contrast thought to contribute and he was treated with empiric Invanz that has since discontinued. incidentally the large Rt inguinal hernia again seen on ct but without evidence of incarceration. His fluids chg'd to bicarb gtt and added oral KCL. Dr bains consulted, agrees with bicarb gtt and move to ICU for more careful monitoring with good improvement in his renal function and particularly his acidosis. he is now on hypotonic IVFs to correct the serum chloride contributing to his acidosis. Overall he has improved and is likely back to his baseline mental state. he has no complaints to me other than the pureed diet, he recognizes he needs soft texture due to no dentition or dentures. he denies chest pain, palpitations, SOA, n/v/d. ROS: all systems reviewed, see above, remaining systems negative. Physical Exam Vital Signs: Temp Pulse Resp BP Pulse Ox 98.6 F 66 22 H 94/52 L 97 01/05/17 11:17 01/05/17 11:17 01/05/17 11:17 01/05/17 11:17 01/05/17 11:17 Intake & Output 01/04/17 01/05/17 01/06/17 06:59 06:59 06:59 Intake Total 1507 1834 Output Total 950 1600 Balance 557 234 Weight 74.1 kg 74.2 kg General appearance: PRESENT: no acute distress, disheveled, hard of hearing, thin, well-developed Head exam: PRESENT: atraumatic, normocephalic Eye exam: PRESENT: EOMI. ABSENT: conjunctival injection, scleral icterus Mouth exam: PRESENT: moist mucosa, neck supple, tongue midline Neck exam: PRESENT: full ROM. ABSENT: tenderness Respiratory exam: PRESENT: clear to auscultation kiera, unlabored. ABSENT: accessory muscle use Cardiovascular exam: PRESENT: irregular rhythm, afib on monitor rate controlled. ABSENT: systolic murmur, tachycardia Pulses: PRESENT: normal radial pulses, +1 pedal pulses bilateral Vascular exam: ABSENT: normal capillary refill GI/Abdominal exam: PRESENT: normal bowel sounds, soft, other - large Rt inquinal hernia into the scrotal sac, nontender, no overlying erythema or heat Gentrourinary exam: PRESENT: indwelling catheter, massive scrotum due to hernia Extremities exam: ABSENT: calf tenderness, pedal edema Musculoskeletal exam: PRESENT: full ROM. ABSENT: ambulatory - very weak, 3/5 at best in legs, 4/5 arms Psychiatric exam: PRESENT: no longer anxious, or confused Focused psych exam: PRESENT: no longer paranoid NEURO: speech is not slurred, moves all 4 ext's, diminished patella reflexes, no facial asymmetry and only able to process simple one step commands Skin exam: PRESENT: dry, erythema - of the perineal skin folds and post scrotum with scaling skin, warm Results Laboratory Results: 01/05/17 05:31 01/05/17 05:31 01/05/17 01/05/17 05:31 05:31 WBC 7.7 RBC 4.15 L Hgb 13.3 L Hct 39.8 MCV 96 MCH 32.0 MCHC 33.4 RDW 14.9 H Plt Count 83 L Seg Neutrophils % 70.6 Lymphocytes % 22.0 Monocytes % 5.8 Eosinophils % 1.3 Basophils % 0.3 Absolute Neutrophils 5.4 Absolute Lymphocytes 1.7 Absolute Monocytes 0.4 Absolute Eosinophils 0.1 Absolute Basophils 0.0 Sodium 141.9 Potassium 3.2 L Chloride 113 H Carbon Dioxide 20 L Anion Gap 9 BUN 22 H Creatinine 0.84 Est GFR ( Amer) > 60 Est GFR (Non-Af Amer) > 60 Glucose 101 Calcium 8.3 L Magnesium 2.0 01/01/17 01/01/17 01/01/17 11:37 11:37 16:45 Creatine Kinase 117 155 CK-MB (CK-2) 6.42 H Troponin I 0.077 01/01/17 01/01/17 01/01/17 16:45 22:51 22:51 Creatine Kinase 156 CK-MB (CK-2) 8.40 H 9.26 H Troponin I 0.112 0.117 01/02/17 01/03/17 15:55 04:30 Creatine Kinase CK-MB (CK-2) Troponin I 0.092 0.067 Assessment & Plan - Diagnosis (1) Acute metabolic encephalopathy Is this a current diagnosis for this admission?: YesPlan: slowly improving. multifactorial with a component of acidosis and numerous electrolyte abnls especially the azotemia and hyernatremia. continue to address the underlying malfunctions as his condition will allow and hopefully his mentation will clear though i suspect contribution from undiagnosed dementia , probably vascular type confounder all this. (2) NSTEMI (non-ST elevated myocardial infarction) Is this a current diagnosis for this admission?: YesPlan: stable, probable Type 2 NSTEMI from stress of the above. Dr Masterson consulted and expectant medication management as aggressively as his condition will allow. no asa per cardio due to high risk of bleeding while also on eliquis, continue statin, imdur and lower beta keya dose due to low BPs. no ACEi due to renal failure. (3) Metabolic acidosis Is this a current diagnosis for this admission?: YesPlan: improved, adjust IVFs as condition dictates; multifactorial with component of dehydration, starvation, renal failure, and diamox. continue efforts to rehydrate minimizing chloride content. monitor BMP and adjust treatment based on clinical condition, especially in light of his CM. (4) Acute renal failure Qualifiers: Acute renal failure type: unspecified Qualified Code(s): N17.9 - Acute kidney failure, unspecified Is this a current diagnosis for this admission?: YesPlan: resolved with hydration; likely volume depletion due to decreased oral intake worsened by continued use of diuretic and ACEi for control of his hypertension. (5) Cardiomyopathy Qualifiers: Cardiomyopathy type: ischemic Qualified Code(s): I25.5 - Ischemic cardiomyopathy Is this a current diagnosis for this admission?: YesPlan: severe; EF 20% will affect efforts to maintain euvolemia (6) NSVT (nonsustained ventricular tachycardia) Is this a current diagnosis for this admission?: YesPlan: stable; no recurrence and likely due to severe acidosis in setting of low LV fxn. consider outpt eval for IVCD once his condition improves. (7) Chronic a-fib Is this a current diagnosis for this admission?: YesPlan: rate control and continue anticoagulation (8) Generalized weakness Is this a current diagnosis for this admission?: YesPlan: likely 2/2 above; hydrate and start PT to establish functional status and will need placement, [facility] evaluating for possible Wed discharge (9) Inguinal hernia Qualifiers: Obstruction and gangrene presence: without obstruction or gangrene Laterality: unilateral Recurrence: recurrent Qualified Code(s): K40.91 - Unilateral inguinal hernia, without obstruction or gangrene, recurrent Is this a current diagnosis for this admission?: YesPlan: appears to be stable (10) Hydrops of gallbladder Is this a current diagnosis for this admission?: YesPlan: started empiric abx but not clear this is really contributing so stopped abx / ; monitor (11) Lactic acidosis Is this a current diagnosis for this admission?: YesPlan: unclear etiology but likely starvation acidosis due to poor oral intake; resolved - Time Time Spent with patient: 35 or more minutes Medications reviewed and adjusted accordingly: Yes Anticipated discharge: Acute Rehab Within: within 48 hours
[2017-01-05] MEDS ORDERED: 1/2 NORMAL SALINE 500 ML IV ONE (18:00)
[2017-01-05] MEDS: ATORVASTATIN CALCIUM 80 MG TABLET PO SCH (23:42)
[2017-01-06 06:18] LABS: ANION GAP 6 (5-19); BLOOD UREA NITROGEN 16 mg/dL (7-20); CALCIUM 7.9 mg/dL (8.4-10.2); CARBON DIOXIDE 22 mmol/L (22-30); CHLORIDE 110 mmol/L (98-107); CREATININE RESULT 0.73 mg/dL (0.52-1.25); GLUCOSE 104 mg/dL (75-110); POTASSIUM 3.1 mmol/L (3.6-5.0); SODIUM 138.2 mmol/L (137-145)
[2017-01-06] MEDS: LANSOPRAZOLE 30 MG TAB.RAP.DR PO SCH (06:37)
[2017-01-06] MEDS: METOPROLOL TARTRATE 25 MG TABLET PO SCH ×2 (09:44→22:43)
[2017-01-06] MEDS: ISOSORBIDE MONONITRATE 60 MG TAB.ER.24H PO SCH (09:45)
[2017-01-06] MEDS: APIXABAN 2.5 MG TABLET PO SCH ×2 (09:45→17:04)
[2017-01-06] MEDS: DOCUSATE SODIUM 100 MG CAPSULE PO SCH (09:45)
[2017-01-06] MEDS: POTASSIUM CHLORIDE 10 MEQ TABLET.SA PO SCH ×2 (11:05→22:29)
[2017-01-06] MEDS: ACETAMINOPHEN 325 MG TABLET PO PRN (13:18)
[2017-01-06] MEDS: POTASSI CL 20 MEQ/D5-1/4NS 1L 1,000 ML IV PRN (17:07)
--- NOTE | 2017-01-06 18:22 | PDOC PROGRESS REPORT ---
Subjective Progress Note for:: 01/06/17 Subjective:: reason for visit: f/u ARF, severe metabolic acidosis, severe CM, NSTEMI hospital course: KATERINA FLORES is a 76 year old male presents from home where his only son Tanvir lives with and cares for him, noted he couldn't get himself up off the toilet this morning. Suman normally stays at home alone while Tanvir works but has noted increasing confusion over the last couple of weeks, progressive weakness and at this rate Tanvir doesn't think he can continue to care for him anymore and is asking for a dementia evaluation. Tanvir reports increased confusion, short term memory loss and increasingly living in the past. The patient is too confused to answer any questions at this time. Tanvir reports decreased intake, prefers to drink a couple of Mtn Dews and smoke cigarettes, occasionally will drink a couple of Pleitez lites. He reports no worsening of his inguinal hernia, no change in his bowel habits or urine output , no fevers or chills, n/v/d, cough with phlegm, chest pain or palpitations. eval in ED shows new ARF and metabolic acidosis and we were asked to admit for further eval and managment. review of the medical record shows he was in hospital 11/19 for afib with RVR and had eval of his inquinal hernia at that time, not thought to be good candidate for surgery due to his heart disease and general condition. echo at that time shows severe RAMIRO, EF<20%, mod to severe valvular disease. repeat labs showed he was becoming more acidotic though his lactic acid normalized his bicarb continued to fall likely from his renal failure with continued home use of diamox for reasons that are not immediately clear; also, possibly complicated by infectious process. Initially the possibility of hydrops gallbladder seen on ct a/p without contrast thought to contribute and he was treated with empiric Invanz that has since discontinued. incidentally the large Rt inguinal hernia again seen on ct but without evidence of incarceration. His fluids chg'd to bicarb gtt and added oral KCL. Dr bains consulted, agrees with bicarb gtt and move to ICU for more careful monitoring with good improvement in his renal function and particularly his acidosis. he is now on hypotonic IVFs to correct the serum chloride contributing to his acidosis. Overall he has improved and is likely back to his baseline mental state. he has no complaints to me other than the pureed diet, he recognizes he needs soft texture due to no dentition or dentures. he denies chest pain, palpitations, SOA, n/v/d. Note that the history is taken from the medical record. The patient is unable to give me any detailed history or review of systems today. Physical Exam Vital Signs: Temp Pulse Resp BP Pulse Ox 99.4 F 82 15 108/79 98 01/06/17 15:20 01/06/17 15:20 01/06/17 15:20 01/06/17 15:20 01/06/17 15:20 Intake & Output 01/05/17 01/06/17 01/07/17 06:59 06:59 06:59 Intake Total 1834 2930 1812 Output Total 1600 1400 275 Balance 234 1530 1537 Weight 74.2 kg 79.1 kg General appearance: PRESENT: no acute distress, cooperative Head exam: PRESENT: atraumatic Eye exam: PRESENT: EOMI Mouth exam: PRESENT: neck supple Respiratory exam: PRESENT: crackles Cardiovascular exam: PRESENT: RRR GI/Abdominal exam: PRESENT: normal bowel sounds, soft Rectal exam: PRESENT: deferred Extremities exam: PRESENT: +1 edema Neurological exam: PRESENT: alert, altered Psychiatric exam: PRESENT: appropriate affect Skin exam: PRESENT: abrasion, petechiae Results Laboratory Results: 01/05/17 05:31 01/06/17 05:32 01/06/17 05:32 Sodium 138.2 Potassium 3.1 L Chloride 110 H Carbon Dioxide 22 Anion Gap 6 BUN 16 Creatinine 0.73 Est GFR ( Amer) > 60 Est GFR (Non-Af Amer) > 60 Glucose 104 Calcium 7.9 L 01/01/17 01/01/17 01/01/17 11:37 11:37 16:45 Creatine Kinase 117 155 CK-MB (CK-2) 6.42 H Troponin I 0.077 01/01/17 01/01/17 01/01/17 16:45 22:51 22:51 Creatine Kinase 156 CK-MB (CK-2) 8.40 H 9.26 H Troponin I 0.112 0.117 01/02/17 01/03/17 15:55 04:30 Creatine Kinase CK-MB (CK-2) Troponin I 0.092 0.067 Impressions: Chest X-Ray 01/01/17 05:03 IMPRESSION: Interval improvement. Mild mixed interstitial and airspace opacity. Abdomen/Pelvis CT 01/01/17 06:08 IMPRESSION: 1. Large fat containing/large bowel containing right inguinal hernia with contents down into the scrotum. No evidence of bowel incarceration or obstruction. 2. Gallbladder noted be significantly dilated and fluid-filled. No radiopaque gallstones identified. No pericholecystic fluid or inflammation. No biliary dilatation is identified. 3. Four-chamber cardiomegaly. Assessment & Plan - Diagnosis (2) Acute CHF (congestive heart failure) Qualifiers: Congestive heart failure type: combined Qualified Code(s): I50.41 - Acute combined systolic (congestive) and diastolic (congestive) heart failure (5) Pneumonia Qualifiers: Pneumonia type: due to unspecified organism Laterality: bilateral Lung location: lower lobe of lung Qualified Code(s): J18.9 - Pneumonia, unspecified organism (8) Depression Qualifiers: Depression Type: unspecified Qualified Code(s): F32.9 - Major depressive disorder, single episode, unspecified (9) Acute renal failure Qualifiers: Acute renal failure type: unspecified Qualified Code(s): N17.9 - Acute kidney failure, unspecified Is this a current diagnosis for this admission?: Yes (10) NSTEMI (non-ST elevated myocardial infarction) Is this a current diagnosis for this admission?: Yes (11) Acute metabolic encephalopathy Is this a current diagnosis for this admission?: Yes - Time Time Spent with patient: 15-24 minutes - Inpatient Certification Medical Necessity: Risk of Complication if Not Cared For in Hospital - Plan Summary Plan Summary: Time the patient appears to be stabilizing. We are working on placement for this patient. I will ensure that his medication list etc. are addressed. I have not made any changes to the regimen today. He is clinically stable. Labs are stable.
[2017-01-06] MEDS: ATORVASTATIN CALCIUM 80 MG TABLET PO SCH (22:29)
[2017-01-07] MEDS: ACETAMINOPHEN 325 MG TABLET PO PRN ×2 (04:12→12:40)
[2017-01-07] MEDS: LANSOPRAZOLE 30 MG TAB.RAP.DR PO SCH (05:44)
[2017-01-07 06:55] LABS: ALANINE AMINOTRANSFERASE 31 U/L (21-72); ALBUMIN 2.5 g/dL (3.5-5.0); ALKALINE PHOSPHATASE 80 U/L (38-126); ANION GAP 9 (5-19); ASPARTATE AMINO TRANSFERASE 24 U/L (17-59); BILIRUBIN,DIRECT 0.4 mg/dL (0.0-0.4); BILIRUBIN,TOTAL 1.6 mg/dL (0.2-1.3); BLOOD UREA NITROGEN 14 mg/dL (7-20); CALCIUM 7.8 mg/dL (8.4-10.2); CARBON DIOXIDE 21 mmol/L (22-30); CHLORIDE 107 mmol/L (98-107); CREATININE RESULT 0.71 mg/dL (0.52-1.25); GLUCOSE 101 mg/dL (75-110); MAGNESIUM 1.8 mg/dL (1.6-2.3); POTASSIUM 3.9 mmol/L (3.6-5.0); SODIUM 136.6 mmol/L (137-145); TOTAL PROTEIN 5.4 g/dL (6.3-8.2)
[2017-01-07 07:02] LABS: ABSOLUTE EOSINOPHILS # (AUTO) 0.1 10^3/uL (0.0-0.6); ABSOLUTE LYMPHOCYTES (AUTO) 1.7 10^3/uL (0.5-4.7); ABSOLUTE MONOCYTES (AUTO) 0.6 10^3/uL (0.1-1.4); ABSOLUTE NEUT (AUTO) 4.9 10^3/uL (1.7-8.2); BASOPHILS % (AUTO) 0.2 % (0-2); EOSINOPHILS % (AUTO) 1.2 % (0-6); HEMATOCRIT 35.5 % (37.9-51.0); HGB HCT DIFFERENCE 0.5; LYMPHOCYTES % (AUTO) 23.2 % (13-45); MEAN CORPUSCULAR HGB CONC 33.7 g/dL (32.0-36.0); MEAN CORPUSCULAR VOLUME 95 fl (80-97); MONOCYTES % (AUTO) 7.8 % (3-13); RED BLOOD COUNT 3.74 10^6/uL (4.35-5.55); RED CELL DISTRIBUTION WIDTH 14.7 % (11.5-14.0); SEGMENTED NEUTROPHILS % (AUTO) 67.6 % (42-78); WHITE BLOOD COUNT 7.2 10^3/uL (4.0-10.5)
[2017-01-07] MEDS: ISOSORBIDE MONONITRATE 60 MG TAB.ER.24H PO SCH (09:28)
[2017-01-07] MEDS: POTASSIUM CHLORIDE 10 MEQ TABLET.SA PO SCH ×2 (09:29→22:58)
[2017-01-07] MEDS: DOCUSATE SODIUM 100 MG CAPSULE PO SCH (09:29)
[2017-01-07] MEDS: APIXABAN 2.5 MG TABLET PO SCH (09:30)
[2017-01-07] MEDS: METOPROLOL TARTRATE 25 MG TABLET PO SCH ×2 (09:39→22:56)
--- NOTE | 2017-01-07 15:23 | PDOC PROGRESS REPORT ---
Subjective Progress Note for:: 01/07/17 Subjective:: reason for visit: f/u ARF, severe metabolic acidosis, severe CM, NSTEMI hospital course: KATERINA FLORES is a 76 year old male presents from home where his only son Tanvir lives with and cares for him, noted he couldn't get himself up off the toilet this morning. Suman normally stays at home alone while Tanvir works but has noted increasing confusion over the last couple of weeks, progressive weakness and at this rate Tanvir doesn't think he can continue to care for him anymore and is asking for a dementia evaluation. Tanvir reports increased confusion, short term memory loss and increasingly living in the past. The patient is too confused to answer any questions at this time. Tanvir reports decreased intake, prefers to drink a couple of Mtn Dews and smoke cigarettes, occasionally will drink a couple of Pleitez lites. He reports no worsening of his inguinal hernia, no change in his bowel habits or urine output , no fevers or chills, n/v/d, cough with phlegm, chest pain or palpitations. eval in ED shows new ARF and metabolic acidosis and we were asked to admit for further eval and managment. review of the medical record shows he was in hospital 11/19 for afib with RVR and had eval of his inquinal hernia at that time, not thought to be good candidate for surgery due to his heart disease and general condition. echo at that time shows severe RAMIRO, EF<20%, mod to severe valvular disease. repeat labs showed he was becoming more acidotic though his lactic acid normalized his bicarb continued to fall likely from his renal failure with continued home use of diamox for reasons that are not immediately clear; also, possibly complicated by infectious process. Initially the possibility of hydrops gallbladder seen on ct a/p without contrast thought to contribute and he was treated with empiric Invanz that has since discontinued. incidentally the large Rt inguinal hernia again seen on ct but without evidence of incarceration. His fluids chg'd to bicarb gtt and added oral KCL. Dr bains consulted, agrees with bicarb gtt and move to ICU for more careful monitoring with good improvement in his renal function and particularly his acidosis. he is now on hypotonic IVFs to correct the serum chloride contributing to his acidosis. Overall he has improved and is likely back to his baseline mental state. he has no complaints to me other than the pureed diet, he recognizes he needs soft texture due to no dentition or dentures. he denies chest pain, palpitations, SOA, n/v/d. Note that the history above is taken from the medical record. The patient is unable to give me any detailed history or review of systems. Has no specific complaints today. I have been informed that a bed at a alf facility is available and I anticipate discharging the patient tomorrow. Physical Exam Vital Signs: Temp Pulse Resp BP Pulse Ox 99.5 F 83 18 118/65 97 01/07/17 11:23 01/07/17 11:23 01/07/17 11:23 01/07/17 11:23 01/07/17 11:23 Intake & Output 01/06/17 01/07/17 01/08/17 06:59 06:59 06:59 Intake Total 2930 2482 Output Total 1400 1000 Balance 1530 1482 Weight 79.1 kg 78.8 kg General appearance: PRESENT: no acute distress Head exam: PRESENT: atraumatic Eye exam: PRESENT: EOMI Mouth exam: PRESENT: moist, neck supple Respiratory exam: PRESENT: crackles, decreased breath sounds Cardiovascular exam: PRESENT: RRR GI/Abdominal exam: PRESENT: normal bowel sounds, soft Extremities exam: PRESENT: +1 edema Neurological exam: PRESENT: alert, awake Psychiatric exam: PRESENT: appropriate affect Results Laboratory Results: 01/07/17 05:41 01/07/17 05:41 01/07/17 01/07/17 05:41 05:41 WBC 7.2 RBC 3.74 L Hgb 12.0 L Hct 35.5 L MCV 95 MCH 32.0 MCHC 33.7 RDW 14.7 H Plt Count 76 L Seg Neutrophils % 67.6 Lymphocytes % 23.2 Monocytes % 7.8 Eosinophils % 1.2 Basophils % 0.2 Absolute Neutrophils 4.9 Absolute Lymphocytes 1.7 Absolute Monocytes 0.6 Absolute Eosinophils 0.1 Absolute Basophils 0.0 Sodium 136.6 L Potassium 3.9 Chloride 107 Carbon Dioxide 21 L Anion Gap 9 BUN 14 Creatinine 0.71 Est GFR ( Amer) > 60 Est GFR (Non-Af Amer) > 60 Glucose 101 Calcium 7.8 L Magnesium 1.8 Total Bilirubin 1.6 H AST 24 ALT 31 Alkaline Phosphatase 80 Total Protein 5.4 L Albumin 2.5 L 01/01/17 01/01/17 01/01/17 11:37 11:37 16:45 Creatine Kinase 117 155 CK-MB (CK-2) 6.42 H Troponin I 0.077 01/01/17 01/01/17 01/01/17 16:45 22:51 22:51 Creatine Kinase 156 CK-MB (CK-2) 8.40 H 9.26 H Troponin I 0.112 0.117 01/02/17 01/03/17 15:55 04:30 Creatine Kinase CK-MB (CK-2) Troponin I 0.092 0.067 Impressions: Chest X-Ray 01/01/17 05:03 IMPRESSION: Interval improvement. Mild mixed interstitial and airspace opacity. Abdomen/Pelvis CT 01/01/17 06:08 IMPRESSION: 1. Large fat containing/large bowel containing right inguinal hernia with contents down into the scrotum. No evidence of bowel incarceration or obstruction. 2. Gallbladder noted be significantly dilated and fluid-filled. No radiopaque gallstones identified. No pericholecystic fluid or inflammation. No biliary dilatation is identified. 3. Four-chamber cardiomegaly. Assessment & Plan - Diagnosis (1) Acute CHF (congestive heart failure) Qualifiers: Congestive heart failure type: combined Qualified Code(s): I50.41 - Acute combined systolic (congestive) and diastolic (congestive) heart failure (4) Depression Qualifiers: Depression Type: unspecified Qualified Code(s): F32.9 - Major depressive disorder, single episode, unspecified (5) Acute renal failure Qualifiers: Acute renal failure type: unspecified Qualified Code(s): N17.9 - Acute kidney failure, unspecified Is this a current diagnosis for this admission?: Yes (6) NSTEMI (non-ST elevated myocardial infarction) Is this a current diagnosis for this admission?: Yes (7) Acute metabolic encephalopathy Is this a current diagnosis for this admission?: Yes (8) Cardiomyopathy Qualifiers: Cardiomyopathy type: ischemic Qualified Code(s): I25.5 - Ischemic cardiomyopathy Is this a current diagnosis for this admission?: Yes (9) Chronic a-fib Is this a current diagnosis for this admission?: Yes (10) Generalized weakness Is this a current diagnosis for this admission?: Yes (11) Hydrops of gallbladder Is this a current diagnosis for this admission?: Yes (12) Inguinal hernia Qualifiers: Obstruction and gangrene presence: without obstruction or gangrene Laterality: unilateral Recurrence: recurrent Qualified Code(s): K40.91 - Unilateral inguinal hernia, without obstruction or gangrene, recurrent Is this a current diagnosis for this admission?: Yes (13) Lactic acidosis Is this a current diagnosis for this admission?: Yes (14) Metabolic acidosis Is this a current diagnosis for this admission?: Yes (15) NSVT (nonsustained ventricular tachycardia) Is this a current diagnosis for this admission?: Yes - Time Time Spent with patient: 15-24 minutes - Plan Summary Plan Summary: Patient was admitted for mental status changes. He had metabolic acidosis likely induced by diuretic use and Diamox. His mental status is now back to baseline. His labs have stabilized. His non-ST elevation myocardial infarction will be medically managed. Cardiomyopathy is being medically managed. He has an inguinal hernia without strangulation. Further evaluation for hydrops of gallbladder can be entertained after discharge. Able for transfer to a alf facility. Arrangements are being made.
--- NOTE | 2017-01-07 16:14 | Progress Note ---
Provider Note Provider Note: Patient is developing a progressive thrombocytopenia. He has not received any heparin products this hospitalization. Upon admission he was given Rocephin followed by Vickie. I am going to stop Eliquis. We may be able to resume this after his platelet count recovers. Since the patient has not received heparin or Lovenox I am not going to set him up for a hit panel. Thrombocytopenia may need further evaluation.
[2017-01-08] MEDS: LANSOPRAZOLE 30 MG TAB.RAP.DR PO SCH (05:34)
[2017-01-08] MEDS: ACETAMINOPHEN 325 MG TABLET PO PRN ×2 (05:56→20:48)
[2017-01-08 06:00] LABS: ABSOLUTE EOSINOPHILS # (AUTO) 0.1 10^3/uL (0.0-0.6); ABSOLUTE LYMPHOCYTES (AUTO) 1.5 10^3/uL (0.5-4.7); ABSOLUTE MONOCYTES (AUTO) 0.4 10^3/uL (0.1-1.4); ABSOLUTE NEUT (AUTO) 3.7 10^3/uL (1.7-8.2); BASOPHILS % (AUTO) 0.4 % (0-2); EOSINOPHILS % (AUTO) 1.3 % (0-6); HEMOGLOBIN 11.7 g/dL (13.5-17.0); HGB HCT DIFFERENCE 0.1; LYMPHOCYTES % (AUTO) 25.8 % (13-45); MEAN CORPUSCULAR HEMOGLOBIN 32.3 pg (27.0-33.4); MEAN CORPUSCULAR HGB CONC 33.4 g/dL (32.0-36.0); MEAN CORPUSCULAR VOLUME 97 fl (80-97); MONOCYTES % (AUTO) 7.4 % (3-13); RED BLOOD COUNT 3.62 10^6/uL (4.35-5.55); RED CELL DISTRIBUTION WIDTH 14.5 % (11.5-14.0); SEGMENTED NEUTROPHILS % (AUTO) 65.1 % (42-78); WHITE BLOOD COUNT 5.8 10^3/uL (4.0-10.5)
[2017-01-08] MEDS: METOPROLOL TARTRATE 25 MG TABLET PO SCH ×2 (09:11→23:51)
[2017-01-08] MEDS: POTASSIUM CHLORIDE 10 MEQ TABLET.SA PO SCH (09:14)
[2017-01-08] MEDS: ISOSORBIDE MONONITRATE 60 MG TAB.ER.24H PO SCH (09:14)
[2017-01-08] MEDS: DOCUSATE SODIUM 100 MG CAPSULE PO SCH (09:15)
[2017-01-08] MEDS ORDERED: ONDANSETRON HCL INJ/PF 4 MG/2 ML SDV IV PRN (14:43)
--- NOTE | 2017-01-08 16:02 | PDOC PROGRESS REPORT ---
Subjective Progress Note for:: 01/08/17 Subjective:: reason for visit: f/u ARF, severe metabolic acidosis, severe CM, NSTEMI hospital course: KATERINA FLORES is a 76 year old male presents from home where his only son Tanvir lives with and cares for him, noted he couldn't get himself up off the toilet this morning. Suman normally stays at home alone while Tanvir works but has noted increasing confusion over the last couple of weeks, progressive weakness and at this rate Tanvir doesn't think he can continue to care for him anymore and is asking for a dementia evaluation. Tanvir reports increased confusion, short term memory loss and increasingly living in the past. The patient is too confused to answer any questions at this time. Tanvir reports decreased intake, prefers to drink a couple of Mtn Dews and smoke cigarettes, occasionally will drink a couple of Pleitez lites. He reports no worsening of his inguinal hernia, no change in his bowel habits or urine output , no fevers or chills, n/v/d, cough with phlegm, chest pain or palpitations. eval in ED shows new ARF and metabolic acidosis and we were asked to admit for further eval and managment. review of the medical record shows he was in hospital 11/19 for afib with RVR and had eval of his inquinal hernia at that time, not thought to be good candidate for surgery due to his heart disease and general condition. echo at that time shows severe RAMIRO, EF<20%, mod to severe valvular disease. repeat labs showed he was becoming more acidotic though his lactic acid normalized his bicarb continued to fall likely from his renal failure with continued home use of diamox for reasons that are not immediately clear; also, possibly complicated by infectious process. Initially the possibility of hydrops gallbladder seen on ct a/p without contrast thought to contribute and he was treated with empiric Invanz that has since discontinued. incidentally the large Rt inguinal hernia again seen on ct but without evidence of incarceration. His fluids chg'd to bicarb gtt and added oral KCL. Dr bains consulted, agrees with bicarb gtt and move to ICU for more careful monitoring with good improvement in his renal function and particularly his acidosis. he is now on hypotonic IVFs to correct the serum chloride contributing to his acidosis. Overall he has improved and is likely back to his baseline mental state. he has no complaints to me other than the pureed diet, he recognizes he needs soft texture due to no dentition or dentures. he denies chest pain, palpitations, SOA, n/v/d. Note that the history above is taken from the medical record. The patient is unable to give me any detailed history or review of systems. Has no specific complaints today. Discharge planning has arranged a bed for this patient. Discharge was anticipated for 01/08/2017. However, it appears that the patient has new onset thrombocytopenia. Yesterday, Eliquis was stopped. Also, atorvastatin was discontinued. At this point in time I had like to see his platelet count go back up before he is discharged. If the thrombocytopenia continues a hematology consult may be of value. Physical Exam Vital Signs: Temp Pulse Resp BP Pulse Ox 98.3 F 89 15 110/86 H 98 01/08/17 12:00 01/08/17 14:00 01/08/17 12:00 01/08/17 12:00 01/08/17 12:00 Intake & Output 01/07/17 01/08/17 01/09/17 06:59 06:59 06:59 Intake Total 2482 1316 Output Total 1000 770 Balance 1482 546 Weight 78.8 kg 78.8 kg Additional comments: Patient is extremely polite and cooperative. Unfortunately, he remains confused. He does not know where he is or why he is here. Again, he denies all complaints. His facial appearance is unremarkable. He does not have any JVD. His lungs are clear to auscultation bilaterally. His cardiac exam is irregularly irregular. He has a grade 1/6 systolic ejection murmur at the left upper sternal border. The abdomen is soft and flat. Bowel sounds are present. There is no guarding or rebound and there are no hernias or masses. Patient' s lower extremities are without pitting edema. Patient does have a few excoriations and bruises on his extremities. They appear stable. Results Laboratory Results: 01/08/17 04:59 01/07/17 05:41 01/08/17 04:59 WBC 5.8 RBC 3.62 L Hgb 11.7 L Hct 35.0 L MCV 97 MCH 32.3 MCHC 33.4 RDW 14.5 H Plt Count 76 L Seg Neutrophils % 65.1 Lymphocytes % 25.8 Monocytes % 7.4 Eosinophils % 1.3 Basophils % 0.4 Absolute Neutrophils 3.7 Absolute Lymphocytes 1.5 Absolute Monocytes 0.4 Absolute Eosinophils 0.1 Absolute Basophils 0.0 01/01/17 01/01/17 01/01/17 11:37 11:37 16:45 Creatine Kinase 117 155 CK-MB (CK-2) 6.42 H Troponin I 0.077 01/01/17 01/01/17 01/01/17 16:45 22:51 22:51 Creatine Kinase 156 CK-MB (CK-2) 8.40 H 9.26 H Troponin I 0.112 0.117 01/02/17 01/03/17 15:55 04:30 Creatine Kinase CK-MB (CK-2) Troponin I 0.092 0.067 Impressions: Chest X-Ray 01/01/17 05:03 IMPRESSION: Interval improvement. Mild mixed interstitial and airspace opacity. Abdomen/Pelvis CT 01/01/17 06:08 IMPRESSION: 1. Large fat containing/large bowel containing right inguinal hernia with contents down into the scrotum. No evidence of bowel incarceration or obstruction. 2. Gallbladder noted be significantly dilated and fluid-filled. No radiopaque gallstones identified. No pericholecystic fluid or inflammation. No biliary dilatation is identified. 3. Four-chamber cardiomegaly. Assessment & Plan - Diagnosis (1) Acute CHF (congestive heart failure) Qualifiers: Congestive heart failure type: combined Qualified Code(s): I50.41 - Acute combined systolic (congestive) and diastolic (congestive) heart failure (4) Depression Qualifiers: Depression Type: unspecified Qualified Code(s): F32.9 - Major depressive disorder, single episode, unspecified (5) Acute renal failure Qualifiers: Acute renal failure type: unspecified Qualified Code(s): N17.9 - Acute kidney failure, unspecified Is this a current diagnosis for this admission?: Yes (6) NSTEMI (non-ST elevated myocardial infarction) Is this a current diagnosis for this admission?: Yes (7) Acute metabolic encephalopathy Is this a current diagnosis for this admission?: Yes (8) Cardiomyopathy Qualifiers: Cardiomyopathy type: ischemic Qualified Code(s): I25.5 - Ischemic cardiomyopathy Is this a current diagnosis for this admission?: Yes (9) Chronic a-fib Is this a current diagnosis for this admission?: Yes (10) Generalized weakness Is this a current diagnosis for this admission?: Yes (11) Hydrops of gallbladder Is this a current diagnosis for this admission?: Yes (12) Inguinal hernia Qualifiers: Obstruction and gangrene presence: without obstruction or gangrene Laterality: unilateral Recurrence: recurrent Qualified Code(s): K40.91 - Unilateral inguinal hernia, without obstruction or gangrene, recurrent Is this a current diagnosis for this admission?: Yes (13) Lactic acidosis Is this a current diagnosis for this admission?: Yes (14) Metabolic acidosis Is this a current diagnosis for this admission?: Yes (15) NSVT (nonsustained ventricular tachycardia) Is this a current diagnosis for this admission?: Yes - Time Time Spent with patient: 15-24 minutes - Inpatient Certification Medical Necessity: Risk of Complication if Not Cared For in Hospital - Plan Summary Plan Summary: Patient presented to the hospital with worsening mental status changes. He also had renal failure and acidosis. The renal failure and acidosis were likely secondary to multiple diuretics including Diamox. Patient's renal failure and acidosis have resolved. The patient does have an underlying cardiomyopathy. His hospitalization was complicated by a non-ST elevation myocardial infarction. Cardiology has been involved with the patient's care as has nephrology. At this point in time the patient is stable. We will continue medical management for his cardiac disease. I was attempting to discharge him today to correction facility., However, Yesterday noted that the patient has had a decreasing platelet count. I discussed this with pharmacy. The patient has not received any heparin this hospitalization. Therefore, I did not send a heparin induced thrombocytopenia panel. The platelet count could be decreasing due to atorvastatin. Atorvastatin has been held. Eliquis has been held. At this point in time I think that we need to see that the platelet count is back on the rise. When the patient's platelet count recovers I would consider placing him on aspirin or once again attempting Eliquis. In general I would favor aspirin because I think the patient is a fall risk. Perhaps, a different lipid agent would be preferred such as simvastatin. This can be discussed with cardiology prior to discharge. If the patient's platelet count continues to drop I would recommend hematology consultation.
--- NOTE | 2017-01-08 17:28 | Progress Note ---
Provider Note Provider Note: At this point in time, the patient is refusing to go to a care home facility. This has been discussed with the patient's son. He is willing to take his father home. Once the patient's platelet count begins to recover I feel the patient can be discharged with close follow-up. The patient will be following up with Dr. Trevor Jaquez. Thing has been made aware of the change in plan. Discharge planning will be informed. The plan will now be to discharge the patient to home with home health and physical therapy.
[2017-01-09 05:50] LABS: ABSOLUTE EOSINOPHILS # (AUTO) 0.1 10^3/uL (0.0-0.6); ABSOLUTE LYMPHOCYTES (AUTO) 1.6 10^3/uL (0.5-4.7); ABSOLUTE MONOCYTES (AUTO) 0.4 10^3/uL (0.1-1.4); ABSOLUTE NEUT (AUTO) 3.2 10^3/uL (1.7-8.2); BASOPHILS % (AUTO) 0.7 % (0-2); HEMATOCRIT 35.7 % (37.9-51.0); HEMOGLOBIN 11.7 g/dL (13.5-17.0); HGB HCT DIFFERENCE -0.6; LYMPHOCYTES % (AUTO) 30.1 % (13-45); MEAN CORPUSCULAR HEMOGLOBIN 31.8 pg (27.0-33.4); MEAN CORPUSCULAR HGB CONC 32.8 g/dL (32.0-36.0); MEAN CORPUSCULAR VOLUME 97 fl (80-97); MONOCYTES % (AUTO) 7.6 % (3-13); RED BLOOD COUNT 3.69 10^6/uL (4.35-5.55); RED CELL DISTRIBUTION WIDTH 14.8 % (11.5-14.0); SEGMENTED NEUTROPHILS % (AUTO) 59.6 % (42-78); WHITE BLOOD COUNT 5.4 10^3/uL (4.0-10.5)
[2017-01-09] MEDS: LANSOPRAZOLE 30 MG TAB.RAP.DR PO SCH (05:50)
[2017-01-09 06:06] LABS: ANION GAP 5 (5-19); BLOOD UREA NITROGEN 13 mg/dL (7-20); CALCIUM 7.8 mg/dL (8.4-10.2); CARBON DIOXIDE 27 mmol/L (22-30); CHLORIDE 104 mmol/L (98-107); CREATININE RESULT 0.76 mg/dL (0.52-1.25); GLUCOSE 89 mg/dL (75-110); MAGNESIUM 1.8 mg/dL (1.6-2.3); PHOSPHORUS 1.9 mg/dL (2.5-4.5); POTASSIUM 4.8 mmol/L (3.6-5.0)
[2017-01-09] MEDS: METOPROLOL TARTRATE 25 MG TABLET PO SCH (09:34)
[2017-01-09] MEDS: DOCUSATE SODIUM 100 MG CAPSULE PO SCH (09:34)
[2017-01-09] MEDS: ISOSORBIDE MONONITRATE 60 MG TAB.ER.24H PO SCH (09:35)
[2017-01-09 11:08] VITALS: BP 94/51
--- NOTE | 2017-01-09 14:09 | PDOC DISCHARGE SUMMARY ---
General - Admit/Disc Date/PCP Admission Date/Primary Care Provider: 01/01/17 09:03 ARSLAN MURRAY MD Discharge Date: 01/09/17 - Discharge Diagnosis (1) Acute renal failure Is this a current diagnosis for this admission?: YesSummary: Patient presented with acute renal failure secondary to overdiuresis. It has improved. (2) Acute metabolic encephalopathy Is this a current diagnosis for this admission?: Yes (3) Acute on chronic systolic CHF (congestive heart failure) Is this a current diagnosis for this admission?: YesSummary: Patient is restarted on spironolactone (4) Atrial fibrillation with rapid ventricular response Is this a current diagnosis for this admission?: YesSummary: Is felt not to be a candidate for anticoagulation because of frequent falls. (5) Cardiomyopathy Is this a current diagnosis for this admission?: Yes (6) Depression Is this a current diagnosis for this admission?: Yes (7) Essential hypertension Is this a current diagnosis for this admission?: Yes (8) Hypernatremia Is this a current diagnosis for this admission?: Yes (9) Hypokalemia Is this a current diagnosis for this admission?: Yes (10) NSTEMI (non-ST elevated myocardial infarction) Is this a current diagnosis for this admission?: Yes (11) Thrombocytopenia Is this a current diagnosis for this admission?: Yes - Additional Information Resuscitation Status: Do Not Resuscitate Discharge Diet: Cardiac Discharge Activity: Activity As Tolerated Home Medications: Spironolactone 25 mg PO DAILY 01/01/17 Isosorbide Mononitrate [Imdur 60 mg Tablet.er] 60 mg PO DAILY #30 tab.er.24h 01/19 Metoprolol Tartrate [Lopressor 25 mg Tablet] 12.5 mg PO Q12 #60 tablet 01/09/17 History of Present Illness History of Present Illness: KATERINA FLORES is a 76 year old male who lives with his son who had worsening confusion and had trouble getting off of the toilet day of admission. The patient does not have a previous history of dementia but his son is concerned that he may have dementia given his short-term memory loss. Patient was confused on presentation. He was noted to have acute renal failure most likely secondary to diuretic use. Hospital Course Hospital Course: 76-year-old gentleman who presented with acute on chronic renal failure with acidosis. He was felt to be secondary to multiple diuretic uses. The patient was given fluids and had resolution of the renal failure and acidosis. Patient has a significant cardio myopathy with systolic congestive heart failure. During his hospitalization he developed an acute non-STEMI. Cardiology was consulted. The patient is to continue with aspirin. Patient was going to be discharged yesterday to a intermediate facility however he developed low platelets and his platelet counts have improved today. Patient has not wanted to go to rehabilitation was to go home with his son who is agreeable to take him home. Patient's other medical problems were stable during this hospitalization. Physical Exam Vital Signs: Temp Pulse Resp BP Pulse Ox 98.5 F 87 20 94/51 L 98 01/09/17 11:06 01/09/17 11:06 01/09/17 11:06 01/09/17 11:06 01/09/17 11:06 Intake & Output 01/08/17 01/09/17 01/10/17 06:59 06:59 06:59 Intake Total 1316 756 Output Total 770 1600 Balance 546 -844 Weight 78.8 kg 78.7 kg General appearance: PRESENT: no acute distress Eye exam: PRESENT: conjunctiva pink. ABSENT: scleral icterus Mouth exam: PRESENT: moist, tongue midline Neck exam: ABSENT: JVD Respiratory exam: PRESENT: clear to auscultation kiera. ABSENT: rales, rhonchi, wheezes Cardiovascular exam: PRESENT: RRR. ABSENT: diastolic murmur, rubs, systolic murmur GI/Abdominal exam: PRESENT: normal bowel sounds, soft. ABSENT: distended, guarding, mass, organolmegaly, rebound, tenderness Rectal exam: PRESENT: deferred Extremities exam: ABSENT: calf tenderness, clubbing, pedal edema Neurological exam: PRESENT: alert, awake, oriented to person, oriented to place , oriented to time, oriented to situation, CN II-XII grossly intact. ABSENT: motor sensory deficit Psychiatric exam: PRESENT: appropriate affect Skin exam: PRESENT: dry, intact, warm. ABSENT: cyanosis, rash Results Laboratory Results: 01/09/17 04:56 01/09/17 04:56 01/09/17 01/09/17 04:56 04:56 WBC 5.4 RBC 3.69 L Hgb 11.7 L Hct 35.7 L MCV 97 MCH 31.8 MCHC 32.8 RDW 14.8 H Plt Count 83 L Seg Neutrophils % 59.6 Lymphocytes % 30.1 Monocytes % 7.6 Eosinophils % 2.0 Basophils % 0.7 Absolute Neutrophils 3.2 Absolute Lymphocytes 1.6 Absolute Monocytes 0.4 Absolute Eosinophils 0.1 Absolute Basophils 0.0 Sodium 136.0 L Potassium 4.8 Chloride 104 Carbon Dioxide 27 Anion Gap 5 BUN 13 Creatinine 0.76 Est GFR ( Amer) > 60 Est GFR (Non-Af Amer) > 60 Glucose 89 Calcium 7.8 L Phosphorus 1.9 L Magnesium 1.8 01/01/17 01/01/17 01/01/17 11:37 11:37 16:45 Creatine Kinase 117 155 CK-MB (CK-2) 6.42 H Troponin I 0.077 01/01/17 01/01/17 01/01/17 16:45 22:51 22:51 Creatine Kinase 156 CK-MB (CK-2) 8.40 H 9.26 H Troponin I 0.112 0.117 01/02/17 01/03/17 15:55 04:30 Creatine Kinase CK-MB (CK-2) Troponin I 0.092 0.067 Impressions: Chest X-Ray 01/01/17 05:03 IMPRESSION: Interval improvement. Mild mixed interstitial and airspace opacity. Abdomen/Pelvis CT 01/01/17 06:08 IMPRESSION: 1. Large fat containing/large bowel containing right inguinal hernia with contents down into the scrotum. No evidence of bowel incarceration or obstruction. 2. Gallbladder noted be significantly dilated and fluid-filled. No radiopaque gallstones identified. No pericholecystic fluid or inflammation. No biliary dilatation is identified. 3. Four-chamber cardiomegaly. Qualifiers PATEINT BEING DISCHARGED WITH ANY OF THE FOLLOWING DIAGNOSIS?: Heart Failure HF Pt being discharged on ACEI for LVEF less than 40%?: No Reason(s) for not prescribing ACEI:: Contraindicated HF Pt being discharged on ARBS for LVEF less than 40%?: No Reason(s) for not prescribing ARBS:: Adverse reaction to drug HF Pt with Afib discharged with Warfarin?: No Reason(s) for not prescribing Warfarin:: Contraindicated HF Pt discharged on evidence-based Beta Tacos:: No Reason(s) for not prescribing evidence-based Beta Tacos:: Tx not tolerated Plan Discharge Plan: Patient is discharged to home with home health. Follow-up with primary care in 2 weeks. Time Spent: Greater than 30 Minutes
== END 2017-01-09 11:32 | disposition home or self-care (01) | DRG 682 ==
LOC: ER 04:38 → UNDOADMIN 08:05 → EH 08:05 → 3S 09:18 → EH 09:18 → ICU 21:36 → 4S 01-03 11:29
PROVIDERS: ADMIT Family Medicine; ATTEND Family Medicine
DX: N17.8 Other acute kidney failure (principal); G93.41 Metabolic encephalopathy; I50.23 Acute on chronic systolic (congestive) heart failure; I21.4 Non-ST elevation (NSTEMI) myocardial infarction; E87.0 Hyperosmolality and hypernatremia; E87.2 Acidosis; K82.1 Hydrops of gallbladder; I25.5 Ischemic cardiomyopathy; D69.6 Thrombocytopenia, unspecified; I48.2 Chronic atrial fibrillation; K40.91 Unilateral inguinal hernia, without obstruction or gangrene, recurrent; E87.6 Hypokalemia; F32.9 Major depressive disorder, single episode, unspecified; I10 Essential (primary) hypertension; Z79.899 Other long term (current) drug therapy; Z66 Do not resuscitate; Z79.02 Long term (current) use of antithrombotics/antiplatelets; Z79.82 Long term (current) use of aspirin; F17.210 Nicotine dependence, cigarettes, uncomplicated
CPT/HCPCS: 36415; 71010; 74176; 80048; 80053; 80162; 81001; 82550; 82553; 82803; 83605; 83735; 84100; 84484; 85025; 85610; 87040; 93005; 93010; 96361; 96365; 96367; 99291; G8978-GP; G8979-GP; G8996-GN; G8997-GN; J0610; J0696; J1335; J3480; J3490; J7030; J7060

== ENCOUNTER 2017-01-12 05:37 | Emergency (ER) | payer MEDICARE, BC ==
--- NOTE | 2017-01-12 06:51 | ER Document Report ---
ED General - General Chief Complaint: Groin Pain Stated Complaint: GROIN PAIN Time Seen by Provider: 01/12/17 06:22 Mode of Arrival: Medic Information source: Patient TRAVEL OUTSIDE OF THE [place] IN LAST 30 DAYS: No - HPI Notes: Patient is a pleasant 76-year-old white male history of right inguinal hernia that the patient was recommended for surgery back in 2011 but he states it was canceled related to a high blood pressure and he never followed up. The patient chronically has a significant hernia with scrotal swelling and usually wears a truss, but he did not have the truss on yesterday and started having some pain to the area. The patient states she was unable to reduce the hernia and the pain continued intermittently through the evening. The patient denies any fever or constipation or nausea or vomiting. This morning he was unable to reduce the hernia so he came in by ambulance. Past medical history acute renal failure, atrial fibrillation, CHF, cardiomegaly , hypertension, hypernatremia, hypokalemia, non-STEMI. Medications metoprolol isosorbide spironolactone. Review of old records: Abdomen/Pelvis CT 01/01/17 06:08 IMPRESSION: 1. Large fat containing/large bowel containing right inguinal hernia with contents down into the scrotum. No evidence of bowel incarceration or obstruction. 2. Gallbladder noted be significantly dilated and fluid-filled. No radiopaque gallstones identified. No pericholecystic fluid or inflammation. No biliary dilatation is identified. 3. Four-chamber cardiomegaly. - Related Data Allergies/Adverse Reactions: No Known Allergies Allergy (Verified 11/18/16 18:30) Past Medical History - General Information source: Patient - Social History Smoking Status: Never Smoker Chew tobacco use (# tins/day): No Frequency of alcohol use: None Drug Abuse: None Lives with: Family Family History: Reviewed & Not Pertinent, Hypertension - Past Medical History Cardiac Medical History: Reports: Hx Atrial Fibrillation - Patient however not on chronic anticoagulation., Hx Congestive Heart Failure - last EF <20% in 11/19 , Hx Hypertension Pulmonary Medical History: Reports: Hx Asthma - During childhood Renal/ Medical History: Denies: Hx Peritoneal Dialysis Psychiatric Medical History: Reports: Hx Depression Past Surgical History: Reports: Other - Left inguinal hernia surgery, arthroscopic surgery of the right knee. Review of Systems - Review of Systems Notes: REVIEW OF SYSTEMS: CONSTITUTIONAL : Denies fever, chills, or sweats. Denies recent illness. EENT: Denies eye, ear, throat, or mouth pain or symptoms. Denies nasal or sinus congestion or discharge. Denies throat, tongue, or mouth swelling or difficulty swallowing. CARDIOVASCULAR: Denies chest pain. Denies palpitations or racing or irregular heart beat. Denies ankle edema. RESPIRATORY: Denies cough, cold, or chest congestion. Denies shortness of breath, difficulty breathing, or wheezing. GASTROINTESTINAL: Denies abdominal pain or distention. Denies nausea, vomiting , or diarrhea. Denies blood in vomitus, stools, or per rectum. Denies black, tarry stools. Denies constipation. GENITOURINARY: Denies difficulty urinating, painful urination, burning, frequency, blood in urine, or discharge. Reports right scrotal swelling and pain. MUSCULOSKELETAL: Denies back or neck pain or stiffness. Denies joint pain or swelling. SKIN: Denies rash, lesions or sores. HEMATOLOGIC : Denies easy bruising or bleeding. LYMPHATIC: Denies swollen, enlarged glands. NEUROLOGICAL: Denies confusion or altered mental status. Denies passing out or loss of consciousness. Denies dizziness or lightheadedness. Denies headache. Denies weakness or paralysis or loss of use of either side. Denies problems with gait or speech. Denies sensory loss, numbness, or tingling. Denies seizures. PSYCHIATRIC: Denies anxiety or stress. Denies depression, suicidal ideation, or homicidal ideation. ALL OTHER SYSTEMS REVIEWED AND NEGATIVE. Dictation was performed using [employer] voice recognition software Physical Exam - Vital signs Vitals: Temp Pulse Resp BP Pulse Ox 97.5 F 98 18 113/63 98 01/12/17 05:42 01/12/17 05:42 01/12/17 05:42 01/12/17 05:42 01/12/17 05:42 - Notes Notes: PHYSICAL EXAMINATION: GENERAL: Well-appearing, well-nourished and in no acute distress. HEAD: Atraumatic, normocephalic. EYES: Pupils equal round and reactive to light, extraocular movements intact, sclera anicteric, conjunctiva are normal. ENT: Nares patent, oropharynx clear without exudates. Moist mucous membranes. NECK: Normal range of motion, supple without lymphadenopathy LUNGS: Breath sounds clear to auscultation bilaterally and equal. No wheezes rales or rhonchi. HEART: Irregular rhythm with normal rate of 84. There is a 1/6 systolic ejection murmur best auscultated over the apex. This is consistent with patient 's history of atrial fibrillation. ABDOMEN / : Soft, nontender, nondistended abdomen. No guarding, no rebound. Previous left inguinal hernia repair from the with healed scar. Patient has a right inguinal hernia that is protuberant 17 cm x 10 cm with mild pain around the inguinal ring region. This is not immediately easily reduced. There is no erythema to the region, and he states his only pain when I attempt to press upon it. Musculoskeletal: Normal range of motion, no pitting or edema. No cyanosis. NEUROLOGICAL: Cranial nerves grossly intact. Normal speech, normal gait. Normal sensory, motor exams PSYCH: Normal mood, normal affect. SKIN: Warm, Dry, normal turgor, no rashes or lesions noted. Course - Re-evaluation Re-evalutation: 01/12/17 07:37 Patient was laid back in Trendelenburg and within 5 minutes the hernia was easily reduced initially by applying pressure proximally and then applying pressure to the lower aspect of the scrotal sac. After reduction the patient had complete resolution of pain. There was slight recurrence of the hernia, but the patient stated this was a normal chronic recurrence and that there was no pain to the region. No evidence for incarceration. No testicular pain following reduction. 01/12/17 07:38 My follow-up with surgery was urged. Patient was given his usual truss to wear and was ambulatory and repeat exam showed some recurrence of the hernia but no pain through it, and the patient stated again this was his normal hernia appearance for the last few years. - Vital Signs Vital signs: Temp Pulse Resp BP Pulse Ox 97.5 F 98 18 113/63 98 01/12/17 05:42 01/12/17 05:42 01/12/17 05:42 01/12/17 05:42 01/12/17 05:42 Discharge - Discharge Clinical Impression: Inguinal hernia Qualifiers: Obstruction and gangrene presence: without obstruction or gangrene Laterality: unilateral Recurrence: not specified as recurrent Qualified Code(s): K40.90 - Unilateral inguinal hernia, without obstruction or gangrene, not specified as recurrent Condition: Stable Disposition: HOME, SELF-CARE Instructions: Hernia ([facility]) Additional Instructions: Wear your hernia truss when up and walking. Return to the emergency department in case of hernia pain or swelling you cannot resolve while laying down flat with gentle pressure. Referrals: [facility] [Provider Group] - Follow up as needed YOLIE RANGEL MD [ACTIVE STAFF] - Follow up as needed
[2017-01-12 08:26] VITALS: BP 104/64
== END 2017-01-12 07:55 | disposition home or self-care (01) ==
LOC: ER 05:37
DX: K40.90 Unilateral inguinal hernia, without obstruction or gangrene, not specified as recurrent (principal); R10.30 Lower abdominal pain, unspecified; I10 Essential (primary) hypertension
CPT/HCPCS: 99283

== ENCOUNTER 2019-05-03 10:15 | Inpatient (IN) | payer MEDICARE, BC ==
[2019-05-03 10:42] LABS: ABSOLUTE LYMPHOCYTES (AUTO) 1.1 10^3/uL (0.5-4.7); ABSOLUTE MONOCYTES (AUTO) 0.5 10^3/uL (0.1-1.4); ABSOLUTE NEUT (AUTO) 6.4 10^3/uL (1.7-8.2); BASOPHILS % (AUTO) 0.3 % (0-2); EOSINOPHILS % (AUTO) 0.2 % (0-6); HEMATOCRIT 40.2 % (37.9-51.0); HEMOGLOBIN 12.9 g/dL (13.5-17.0); LYMPHOCYTES % (AUTO) 13.9 % (13-45); MEAN CORPUSCULAR HGB CONC 32.2 g/dL (32.0-36.0); MEAN CORPUSCULAR VOLUME 100 fl (80-97); MONOCYTES % (AUTO) 6.5 % (3-13); PLATELET COUNT 121 10^3/uL (150-450); RED BLOOD COUNT 4.04 10^6/uL (4.35-5.55); RED CELL DISTRIBUTION WIDTH 19.5 % (11.5-14.0); SEGMENTED NEUTROPHILS % (AUTO) 79.1 % (42-78); TOTAL CELLS COUNTED % (AUTO) 100 %; WHITE BLOOD COUNT 8.1 10^3/uL (4.0-10.5)
[2019-05-03 10:46] LABS: INTERNATIONAL RATION (INR) 1.34; PROTHROMBIN TIME 16.7 SEC (11.4-15.4)
--- NOTE | 2019-05-03 10:50 | ER Document Report ---
ED General - General Chief Complaint: Abdominal Pain Stated Complaint: ABDOMINAL PAIN Time Seen by Provider: 05/03/19 10:37 TRAVEL OUTSIDE OF THE [place] IN LAST 30 DAYS: No - HPI Notes: Patient presents from home via EMS. He is called over the last several weeks EMS for times because he falls at night but then once they help the patient get up he refused to come to emergency department. Due to the number of times that they have been called by family brought him to the department for evaluation. He is alert oriented to person and place but not time. He denies any pain other than his right lower extremity. He was found to be 87% on room air and went to 98% with 2 L. - Related Data Allergies/Adverse Reactions: No Known Allergies Allergy (Verified 11/18/16 18:30) Past Medical History - Social History Smoking Status: Unknown if Ever Smoked Family History: Reviewed & Not Pertinent, Hypertension - Past Medical History Cardiac Medical History: Reports: Hx Atrial Fibrillation - Patient however not on chronic anticoagulation., Hx Congestive Heart Failure - last EF <20% in 11/19, Hx Hypertension Pulmonary Medical History: Reports: Hx Asthma - During childhood Renal/ Medical History: Denies: Hx Peritoneal Dialysis Psychiatric Medical History: Reports: Hx Depression Past Surgical History: Reports: Other - Left inguinal hernia surgery, arthroscopic surgery of the right knee. Review of Systems - Review of Systems Constitutional: No symptoms reported EENT: No symptoms reported Cardiovascular: No symptoms reported Respiratory: No symptoms reported Gastrointestinal: No symptoms reported Genitourinary: No symptoms reported Male Genitourinary: No symptoms reported Musculoskeletal: See HPI Skin: No symptoms reported Hematologic/Lymphatic: No symptoms reported Neurological/Psychological: No symptoms reported Physical Exam - Vital signs Vitals: Resp 21 H 05/03/19 10:30 - General General appearance: Alert, Other - Very unkempt - HEENT Head: Normocephalic, Atraumatic Eyes: Normal Pupils: PERRL Mucous membranes: Dry - Respiratory Respiratory status: No respiratory distress Chest status: Nontender Breath sounds: Normal - Cardiovascular Rhythm: Regular Heart sounds: Normal auscultation Murmur: No - Abdominal Inspection: Other - Distended abdomen with a large what appears to be a lipoma versus hernia in the right upper quadrant. Brawny edema bilateral lower extremities with 2+ ascites. - Genitourinary Inspection: Other - Significant bilateral testicular swelling with pitting edema consistent with ascites. - Extremities General upper extremity: Normal ROM General lower extremity: Other - Patient has skin sloughing and warmth of lower right extremity from mid calf down significant for cellulitis and skin tears. Course - Vital Signs Vital signs: Temp Pulse Resp BP Pulse Ox 97.4 F 117 H 18 92/55 L 84 L 05/04/19 20:08 05/05/19 02:00 05/04/19 20:08 05/04/19 20:08 05/04/19 20:08 - Laboratory Result Diagrams: 05/04/19 04:50 05/04/19 04:50 Laboratory results interpreted by me: 05/03/19 05/03/19 05/03/19 09:54 09:54 09:54 RBC 4.04 L Hgb 12.9 L MCV 100 H RDW 19.5 H Plt Count 121 L Seg Neutrophils % 79.1 H PT 16.7 H Potassium 3.4 L BUN 29 H Creatinine 1.69 H Est GFR ( Amer) 47 L Est GFR (MDRD) Non-Af 39 L Lactic Acid Magnesium 2.4 H Total Bilirubin 1.4 H Direct Bilirubin 0.8 H Albumin 2.7 L 05/03/19 10:30 RBC Hgb MCV RDW Plt Count Seg Neutrophils % PT Potassium BUN Creatinine Est GFR ( Amer) Est GFR (MDRD) Non-Af Lactic Acid 2.7 H Magnesium Total Bilirubin Direct Bilirubin Albumin Discharge - Discharge Clinical Impression: Generalized weakness, Hypoxia Cellulitis Qualifiers: Site of cellulitis: extremity Site of cellulitis of extremity: lower extremity Laterality: right Qualified Code(s): L03.115 - Cellulitis of right lower limb Pulmonary edema Qualifiers: Chronicity: acute Qualified Code(s): J81.0 - Acute pulmonary edema Disposition: ADMITTED INPATIENT Admitting Provider: Martínez (Hospitalist) Unit Admitted: [facility]
[2019-05-03 11:04] LABS: ALBUMIN 2.7 g/dL (3.5-5.0); ALKALINE PHOSPHATASE 94 U/L (38-126); ANION GAP 11 (5-19); ASPARTATE AMINO TRANSFERASE 30 U/L (17-59); BILIRUBIN,DIRECT 0.8 mg/dL (0.0-0.4); BILIRUBIN,TOTAL 1.4 mg/dL (0.2-1.3); BLOOD UREA NITROGEN 29 mg/dL (7-20); CALCIUM 8.5 mg/dL (8.4-10.2); CARBON DIOXIDE 28 mmol/L (22-30); CHLORIDE 106 mmol/L (98-107); GLUCOSE 96 mg/dL (75-110); POTASSIUM 3.4 mmol/L (3.6-5.0); TOTAL PROTEIN 6.7 g/dL (6.3-8.2)
[2019-05-03 11:05] LABS: VENOUS BLOOD BASE EXCESS 0.8 mmol/L; VENOUS BLOOD HCO3 27.2 mmol/L (20-32); VENOUS BLOOD PCO2 50.5 mmHg (35-63); VENOUS BLOOD PH 7.35 (7.30-7.42)
[2019-05-03] MEDS ORDERED: ACETAMINOPHEN 325 MG TABLET PO ONE (11:39)
--- NOTE | 2019-05-03 11:42 | RADIOLOGY REPORT (SQ) ---
EXAM DESCRIPTION: CT ABD/PELVIS NO ORAL OR IV COMPLETED DATE/TIME: 05/03/2019 11:28 am REASON FOR STUDY: abd swelling COMPARISON: 01/01/2017 TECHNIQUE: CT scan of the abdomen and pelvis performed without intravenous or oral contrast. Images reviewed with lung, soft tissue, and bone windows. Reconstructed coronal and sagittal MPR images revi ewed. All images stored on PACS. All CT scanners at this facility use dose modulation, iterative reconstruction, and/or weight based d osing when appropriate to reduce radiation dose to as low as reasonably achievable (ALARA). [facility]: Dose Right [facility]: CareDose [facility]: Dose Right [facility]: Teradose 4D [facility]: [employer] RADIATION DOSE: CT Rad equipment meets quality standard of care and radiation dose reduction techniq ues were employed. CTDIvol: 18.0 mGy. DLP: 1066 mGy-cm.mGy. LIMITATIONS: None. FINDINGS: LOWER CHEST: Moderate right, small left pleural effusion and associated atelectasis or con solidation. Cardiomegaly and coronary artery calcifications. NON-CONTRASTED LIVER, SPLEEN, ADRENALS: Evaluation limited by lack of IV contrast. Somewhat shrunken and coarse contour of the liver. No identified significant masses. PANCREAS: No masses. No peripancreatic inflammatory changes. GALLBLADDER: No identified stones by CT criteria. No inflammatory changes to suggest cholecystitis. RIGHT KIDNEY AND URETER: No suspicious masses. Assessment limited by lack of IV contrast. No signif icant calcifications. No hydronephrosis or hydroureter. LEFT KIDNEY AND URETER: No suspicious masses. Assessment limited by lack of IV contrast. No signifi cant calcifications. No hydronephrosis or hydroureter. AORTA AND RETROPERITONEUM: No aneurysm. No retroperitoneal masses or adenopathy. BOWEL AND PERITONEAL CAVITY: Small volume four-quadrant ascites. There is transverse colon with an a midline ventral hernia. There is a single loop of distal small bowel in a large right inguinal claudia ia. Sigmoid diverticulosis. APPENDIX: Normal. PELVIS, BLADDER, AND ABDOMINAL WALL:Severe anasarca. Small volume free fluid. There is a large, fat , fluid, and transverse colon containing midline ventral hernia. There is a large, partially imaged small bowel and fluid containing right inguinal hernia. BONES: No significant findings. OTHER: No other significant finding. IMPRESSION: 1. There is a large, fat, fluid, and transverse colon containing midline ventral hernia, which is substantially enlarged compared to prior examination dated 01/01/2017. 2. There is a large, partially imaged small bowel and fluid containing right inguinal hernia, as seen on prior examination. 3. Somewhat shrunken and coarse contour of the liver, suggestive of chronic parenchymal liver diseas e. 4. Ascites, anasarca, and pleural effusions. 5. Diverticulosis. 6. Cardiomegaly and coronary artery disease. COMMENT: Quality ID # [id number]: Final reports with documentation of one or more dose reduction techniques (e.g., Automated exposure control, adjustment of the mA and/or kV according to patient size, use of iterative reconstruction technique) TECHNICAL DOCUMENTATION: JOB ID: [id number] [employer]- All Rights Reserved Reading location - IP/workstation name: [email or web address]
--- NOTE | 2019-05-03 11:58 | RADIOLOGY REPORT (SQ) ---
EXAM DESCRIPTION: CHEST SINGLE VIEW COMPLETED DATE/TIME: 05/03/2019 11:47 am REASON FOR STUDY: hypoxic COMPARISON: AP view of the chest from 08/13/2014. EXAM PARAMETERS: NUMBER OF VIEWS: One view. TECHNIQUE: Single frontal radiographic view of the chest acquired. RADIATION DOSE: NA LIMITATIONS: None. FINDINGS: LUNGS AND PLEURA: The bilateral perihilar and bibasilar opacities. The costophrenic sulci are blunted. There is no pneumothorax. MEDIASTINUM AND HILAR STRUCTURES: Prominence of the elham. HEART AND VASCULAR STRUCTURES: The cardiac silhouette is enlarged. The pulmonary vasculature is ind istinct BONES: No acute findings. HARDWARE: None in the chest. OTHER: No other finding. IMPRESSION: Bilateral perihilar and bibasilar opacities in the setting of cardiomegaly. The favored differential consideration is pulmonary edema. Other considerations include multifocal pneumonia wi th bilateral pleural effusions and ARDS. TECHNICAL DOCUMENTATION: JOB ID: [id number] [employer]- All Rights Reserved Reading location - IP/workstation name: [email or web address]
--- NOTE | 2019-05-03 13:52 | EKG REPORT ---
SEVERITY:- ABNORMAL ECG - ATRIAL FIBRILLATION PROBABLE ANTEROSEPTAL INFARCT, OLD BORDERLINE T ABNORMALITIES, DIFFUSE LEADS LATERAL LEADS ARE ALSO INVOLVED LOW VOLTAGE EKG : Confirmed by: Jhony Gonzalez MD 03-May-2019 13:51:52
[2019-05-03] MEDS ORDERED: CLINDAMYCIN 600 MG/D5W RTU 600 MG/50 ML RTUPB IV SCH (14:00)
[2019-05-03] MEDS ORDERED: ACETAMINOPHEN 325 MG TABLET PO PRN (14:52)
[2019-05-03] MEDS ORDERED: MAGNESIUM HYDROXIDE SUSP 30 ML UDCUP PO PRN (14:52)
[2019-05-03] MEDS ORDERED: POTASSIUM CHLORIDE 10 MEQ CAPSULE.ER PO ONE (15:25)
[2019-05-03 15:39] LABS: APPEARANCE,URINE CLEAR; BILIRUBIN,URINE NEGATIVE (NEGATIVE); COLOR,URINE YELLOW; GLUCOSE, URINE NEGATIVE (NEGATIVE); KETONES,URINE NEGATIVE (NEGATIVE); LEUKOCYTE ESTERASE,URINE NEGATIVE (NEGATIVE); NITRITE,URINE NEGATIVE (NEGATIVE); PROTEIN,URINE 30 mg/dL (NEGATIVE); URINE SPECIFIC GRAVITY 1.012; UROBILINOGEN,URINE NEGATIVE mg/dL (<2.0)
--- NOTE | 2019-05-03 15:47 | PDOC H&P ---
History of Present Illness Admission Date/PCP: 05/03/19 12:51 ARSLAN MURRAY MD Patient complains of: Cellulitis right leg. Hypoxia. History of Present Illness: KATERINA FLORES is a 79 year old male who has not seen a physician in the last 3 years. He has not taken any medicines. His son reports that his existence at home was mostly sitting in a chair going to the bathroom and having a cigarette. He has underlying atrial fibrillation and has 2 hernias. An inguinal hernia with bowel and fat and a large umbilical hernia with bowel. He has been having multiple falls at home and presents with a red painful right leg with ulcerated areas. He does not report fever or chills. As a historian he is somewhat limited. Some of this is due to dysarthria from an extremely dry mouth. He was tachycardic, required oxygen, had an elevated bilirubin and an elevated creatinine as well as low platelet count. These results did qualify for diagnosis of sepsis. The sepsis is most likely due to his cellulitis. Blood cultures are pending and he is on antibiotics. Did have a chest x-ray that is more likely pulmonary edema and this will make it tricky balancing fluid resuscitation versus worsening edema. He was referred to the hospital service for admission. I was able to talk to his son as well who did confirm a CODE STATUS of DO NOT RESUSCITATE. Past Medical History Past Medical History: Fairly good historian. Some information from old records, discussion with the patient's son as well as discussion with the emergency department physician. Cardiac Medical History: Reports: Atrial Fibrillation - Patient however not on chronic anticoagulation., Congestive Heart Failure - last EF <20% in 11/19, Hypertension Pulmonary Medical History: Reports: Asthma - During childhood EENT Medical History: Denies: Cataracts, Ears, Nose, Throat Neurological Medical History: Denies: Ischemic CVA Endocrine Medical History: Denies: Diabetes Mellitus Type 2 Renal/ Medical History: Denies: Chronic Kidney Disease GI Medical History: Denies: Crohn's Disease, Peptic Ulcer Disease, Ulcerative Colitis Skin Medical History: Reports: Other - Onychomycosis. Psychiatric Medical History: Reports: Depression, Tobacco Dependency Hematology: Denies: Anemia, Neutropenia Infectious Medical History: Reports: None Past Surgical History Past Surgical History: Reports: Other - Left inguinal hernia surgery, arthroscopic surgery of the right knee. Social History Information Source: Patient, Relative - Patient's son, [facility] Records Lives with: Family - Lives with his son Smoking Status: Current Every Day Smoker - Per his son Electronic Cigarette use?: No Frequency of Alcohol Use: Occasional Hx Recreational Drug Use: No Drugs: None Hx Prescription Drug Abuse: No - Advance Directive Resuscitation Status: Do Not Resuscitate Surrogate healthcare decision maker:: I did have a discussion with the patient's son as I did not feel totally confident with the patient's discussion regarding resuscitation. The patient's son does understand the difference between full code, DNR and comfort measures. He understands that as a DNR we will still provide aggressive therapy to try to help the patient recover from this illness. He is familiar with DO NOT RESUSCITATE as his mother was DNR as well. After this discussion the patient's CODE STATUS is in fact DO NOT RESUSCITATE. Family History Family History: Reviewed & Not Pertinent, Hypertension Parental Family History Reviewed: Yes Children Family History Reviewed: Yes Sibling(s) Family History Reviewed.: Yes Medication/Allergy Home Medications: No Home Medications 05/03/19 Allergies/Adverse Reactions: No Known Allergies Allergy (Verified 11/18/16 18:30) Review of Systems Constitutional: PRESENT: fatigue, weakness. ABSENT: fever(s), night sweats Eyes: ABSENT: visual disturbances Ears: ABSENT: hearing changes Nose, Mouth, and Throat: ABSENT: mouth pain, sore throat, vertigo Cardiovascular: PRESENT: dyspnea on exertion, edema, palpitations. ABSENT: chest pain Respiratory: PRESENT: dyspnea. ABSENT: cough, hemoptysis, sputum Gastrointestinal: PRESENT: other - Ventral and inguinal hernia as above. ABSENT: abdominal pain, constipation, diarrhea, dysphagia, nausea, vomiting Genitourinary: PRESENT: other - Tremendous swelling of the scrotum and mons pubis areas with retracted penis. Difficulty inserting Schmitz catheter. Integumentary: PRESENT: erythema, wounds - See description below, other - Onychomycosis Neurological: PRESENT: abnormal speech - Somewhat dysarthric possibly due to extremely dry mouth, frequent falls, weakness - Systemic Psychiatric: PRESENT: depression Endocrine: ABSENT: cold intolerance, flushing, heat intolerance Hematologic/Lymphatic: ABSENT: easy bleeding, easy bruising, lymphadenopathy Allergic/Immunologic: ABSENT: seasonal rhinorrhea Physical Exam Vital Signs: Temp Pulse Resp BP Pulse Ox 16 109/74 05/03/19 15:01 05/03/19 15:01 Intake & Output 05/02/19 05/03/19 05/04/19 06:59 06:59 06:59 Weight 111.9 kg General appearance: PRESENT: cooperative, mild distress, well-developed Head exam: PRESENT: atraumatic, normocephalic Eye exam: PRESENT: conjunctival injection, conjunctiva pink, other - Palpebral erythema. ABSENT: scleral icterus Ear exam: PRESENT: normal external ear exam. ABSENT: bleeding, drainage Mouth exam: PRESENT: dry mucosa - Extremely dry mucosa, tongue midline Teeth exam: PRESENT: poor dentation Neck exam: ABSENT: carotid bruit, lymphadenopathy, thyromegaly, tracheal deviation, tracheostomy Respiratory exam: PRESENT: decreased breath sounds - At bases, prolonged expiratory phas, rales, symmetrical, tachypnea. ABSENT: accessory muscle use, rhonchi, wheezes Cardiovascular exam: PRESENT: irregular rhythm. ABSENT: diastolic murmur, systolic murmur GI/Abdominal exam: PRESENT: distended - Protuberant abdomen, normal bowel sounds, soft, other - Very large ventral hernia unable to be reduced. Also large inguinal hernia. See CT scan results as well.. ABSENT: guarding, tenderness Rectal exam: PRESENT: deferred Gentrourinary exam: PRESENT: scrotal swelling, other - Marked swelling of the mons pubis so as to extremely limit access to the penis (for Schmitz placement) Extremities exam: ABSENT: pedal edema Musculoskeletal exam: PRESENT: tenderness - Right foot. ABSENT: deformity Neurological exam: PRESENT: alert, awake, oriented to person, oriented to place, oriented to situation, CN II-XII grossly intact, other - Patient has dysarthria secondary to extremely dry mouth. It appears that he was oriented to person, place and situation. Psychiatric exam: PRESENT: flat affect. ABSENT: agitated, anxious Focused psych exam: ABSENT: delusional, restlessness Skin exam: PRESENT: erythema - Especially right leg up to mid tibia. Ulceration on right second toe. Area of nonviable appearing tissue at the base of the right hallux. Maceration of skin on the right leg. Small scab on the medial aspect of the proximal foot possibly another entry point for infection. Dry keratinized scaly skin on both legs. Area of erythema on left leg as well without marked ulceration., other - Marked onychomycosis Results Laboratory Results: 05/03/19 09:54 05/03/19 09:54 05/03/19 05/03/19 05/03/19 09:54 09:54 10:30 WBC 8.1 RBC 4.04 L Hgb 12.9 L Hct 40.2 MCV 100 H MCH 32.0 MCHC 32.2 RDW 19.5 H Plt Count 121 L Seg Neutrophils % 79.1 H VBG pH VBG pCO2 VBG HCO3 VBG Base Excess Sodium 144.6 Potassium 3.4 L Chloride 106 Carbon Dioxide 28 Anion Gap 11 BUN 29 H Creatinine 1.69 H Est GFR ( Amer) 47 L Glucose 96 Lactic Acid 2.7 H Calcium 8.5 Magnesium 2.4 H Total Bilirubin 1.4 H AST 30 Alkaline Phosphatase 94 Total Protein 6.7 Albumin 2.7 L Urine Color Urine Appearance Urine pH Ur Specific Kelley Urine Protein Urine Glucose (UA) Urine Ketones Urine Blood Urine Nitrite Ur Leukocyte Esterase Urine WBC (Auto) Urine RBC (Auto) 05/03/19 05/03/19 10:30 15:00 WBC RBC Hgb Hct MCV MCH MCHC RDW Plt Count Seg Neutrophils % VBG pH 7.35 VBG pCO2 50.5 VBG HCO3 27.2 VBG Base Excess 0.8 Sodium Potassium Chloride Carbon Dioxide Anion Gap BUN Creatinine Est GFR ( Amer) Glucose Lactic Acid Calcium Magnesium Total Bilirubin AST Alkaline Phosphatase Total Protein Albumin Urine Color YELLOW Urine Appearance CLEAR Urine pH 5.0 Ur Specific Kelley 1.012 Urine Protein 30 H Urine Glucose (UA) NEGATIVE Urine Ketones NEGATIVE Urine Blood MODERATE H Urine Nitrite NEGATIVE Ur Leukocyte Esterase NEGATIVE Urine WBC (Auto) 4 Urine RBC (Auto) 11 Impressions: Chest X-Ray 05/03/19 10:37 IMPRESSION: Bilateral perihilar and bibasilar opacities in the setting of cardiomegaly. The favored differential consideration is pulmonary edema. Other considerations include multifocal pneumonia with bilateral pleural effusions and ARDS. Abdomen/Pelvis CT 05/03/19 10:45 IMPRESSION: 1. There is a large, fat, fluid, and transverse colon containing midline ventral hernia, which is substantially enlarged compared to prior examination dated 01/01/2017. 2. There is a large, partially imaged small bowel and fluid containing right inguinal hernia, as seen on prior examination. 3. Somewhat shrunken and coarse contour of the liver, suggestive of chronic parenchymal liver disease. 4. Ascites, anasarca, and pleural effusions. 5. Diverticulosis. 6. Cardiomegaly and coronary artery disease. Assessment and Plan - Diagnosis (1) Sepsis due to cellulitis Is this a current diagnosis for this admission?: Yes Plan: 05/03/2019-the patient will receive IV fluids however we must be very mindful of his poor cardiac status. We will repeat his lactic acid levels. I have also administered albumin to try to help improve oncotic pressure. Will be monitored on telemetry. We may consider low-dose dopamine. An echocardiogram is pending to also see if there is any cardiogenic component to his clinical status at this time. (2) Cellulitis Qualifiers: Site of cellulitis: extremity Site of cellulitis of extremity: lower extremity Laterality: right Qualified Code(s): L03.115 - Cellulitis of right lower limb Is this a current diagnosis for this admission?: Yes Plan: 05/03/2019-I will utilize meropenem for broad-spectrum coverage. It is likely that these ulcers have been present for a while. There is a follow odor. He also has marked onychomycosis and post discharge he should have an appointment with podiatry. (3) Acute on chronic systolic and diastolic heart failure, NYHA class 4 Is this a current diagnosis for this admission?: Yes Plan: 05/03/2019-an echocardiogram from 2 years ago showed an ejection fraction less than 20% with grade 2/4 diastolic failure. We will make his recovery that much more challenging. As noted above I will administer albumin. He needs fluid for sepsis and we will utilize furosemide as well. We will need to monitor his renal function, cardiac function and electrolytes. (4) Pleural effusion Is this a current diagnosis for this admission?: Yes Plan: 05/03/2019-in order to treat the sepsis he will need aggressive fluids. This may worsen his pleural effusions which are likely cardiogenic. His poor albumin levels will also contribute. We will utilize a combination of albumin and diuresis and try to taper his fluids as soon as appropriate. (5) Pulmonary edema Qualifiers: Chronicity: acute Qualified Code(s): J81.0 - Acute pulmonary edema Is this a current diagnosis for this admission?: Yes Plan: 05/03/2019-pulmonary edema secondary to markedly decreased cardiac function. Unfortunately with the sepsis he will require at least short-term fluids. IV albumin should help oncotic pressure. Consider low-dose dopamine. X-ray interpretation suggested the possibility of pneumonia but I believe it is much more related to congestive failure. Antibiotic therapy for cellulitis will by default cover majority of pulmonary infections. (6) Chronic a-fib Is this a current diagnosis for this admission?: Yes Plan: 05/03/2019-we will add low-dose metoprolol to improve rate control. This may help the congestive failure which will help the pulmonary edema which may in turn help the pleural effusions. We will monitor the patient on telemetry. At this point he has a significant fall risk and so therapeutic anticoagulation will not be administered. (7) Acute and chronic respiratory failure with hypoxia Is this a current diagnosis for this admission?: Yes Plan: 05/03/2019-we will administer oxygen as required to keep his oxygen saturation between 90 and 94%. He has mixed disease likely secondary to smoking and his congestive heart failure. Nebulizers will be available as well. At this point I believe more of his failure is cardiogenic and so no systemic steroids will be employed at this time. (8) Acute renal failure Qualifiers: Acute renal failure type: with acute tubular necrosis Qualified Code(s): N17.0 - Acute kidney failure with tubular necrosis Is this a current diagnosis for this admission?: Yes Plan: 05/03/2019-acute kidney injury secondary to his cardiac failure with possible contributing factor of the infection causing sepsis. Aggressive IV fluids as noted above. We will monitor his kidney function as well as urine output. Because of the hernia and marked swelling of the scrotum and mons pubis it is been difficult to insert a Schmitz catheter. This will need to be done in an effort to monitor strict intake and output. (9) Thrombocytopenia Is this a current diagnosis for this admission?: Yes Plan: 05/03/2019-most likely secondary to the infection. Continue to monitor the platelet count. If his platelets decreased then we will discontinue the DVT prophylaxis. (10) Ventral hernia Qualifiers: Obstruction and gangrene presence: without obstruction or gangrene Qualified Code(s): K43.9 - Ventral hernia without obstruction or gangrene Is this a current diagnosis for this admission?: Yes Plan: 05/03/2019-please see the CT scan report for details. The patient has a large hernia with bowel present. There is no pattern of obstruction. We will continue to monitor. The patient is not a surgical candidate due to his multiple comorbidities and so if there were complications we would treat conservatively. (11) Inguinal hernia of right side without obstruction or gangrene Is this a current diagnosis for this admission?: Yes Plan: 05/03/2019-the hernia is contributing to the swelling in the mons pubis/scrotal area. There is also edema present. As noted above he is not a surgical c andidate and we will monitor and hopefully avoid complication. If there is complication it will be treated conservatively. (12) Hypokalemia Is this a current diagnosis for this admission?: Yes Plan: 05/03/2019-correct low potassium and monitor electrolytes - Plan Summary Summary: 05/03/2019- Extremely complex picture. Aggressive hydration and treatment for the sepsis could certainly worsen the congestive heart failure with pulmonary edema and pleural effusion. Low albumin is also a contributing factor. Antibiotics, fluids, diuretics, and possible pressor therapy if needed. - Time Time Spent with patient: 35 or more minutes Medications reviewed and adjusted accordingly: Yes Anticipated discharge: Other - Long-term placement versus hospice. Unable to determine at this time. - Inpatient Certification Based on my medical assessment, after consideration of the patient's comorbidities, presenting symptoms, or acuity I expect that the services needed warrant INPATIENT care.: Yes I certify that my determination is in accordance with my understanding of Medicare's requirements for reasonable and necessary INPATIENT services [42 CFR 412.3e].: Yes Medical Necessity: Significant Comorbidiites Make Outpatient Treatment Too Risky, Need Close Monitoring Due to Risk of Patient Decompensation, Need For IV Fluids, Need For Continuous Telemetry Monitoring, Need for IV Antibiotics Post Hospital Care: 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
[2019-05-03] MEDS ORDERED: LEVALBUTEROL HCL NEB 1.25 MG/3 ML AMPUL NEB PRN (16:12)
[2019-05-03] MEDS ORDERED: INFLUENZA QUAD (6MOS+) 2019-20 VAC 0.5 ML SYR IM ONE (16:22)
[2019-05-03] MEDS: RINGERS SOLUTION,LACTATED 1,000 ML IV PRN (17:19)
[2019-05-03] MEDS ORDERED: FUROSEMIDE INJ/PF 20 MG/2 ML SDV IV SCH (18:00)
[2019-05-03] MEDS ORDERED: HALOPERIDOL LACTATE INJ 5 MG/1 ML VIAL IV PRN (18:54)
[2019-05-03] MEDS ORDERED: MORPHINE SULFATE 10 MG/ML INJ IV PRN ×2 (19:24)
[2019-05-03 19:48] LABS: ABSOLUTE LYMPHOCYTES (AUTO) 0.6 10^3/uL (0.5-4.7); ABSOLUTE MONOCYTES (AUTO) 0.3 10^3/uL (0.1-1.4); ABSOLUTE NEUT (AUTO) 6.8 10^3/uL (1.7-8.2); BASOPHILS % (AUTO) 0.4 % (0-2); EOSINOPHILS % (AUTO) 0.3 % (0-6); HEMATOCRIT 39.9 % (37.9-51.0); HEMOGLOBIN 12.9 g/dL (13.5-17.0); LYMPHOCYTES % (AUTO) 8.3 % (13-45); MEAN CORPUSCULAR HEMOGLOBIN 31.8 pg (27.0-33.4); MEAN CORPUSCULAR HGB CONC 32.4 g/dL (32.0-36.0); MEAN CORPUSCULAR VOLUME 98 fl (80-97); MONOCYTES % (AUTO) 3.8 % (3-13); PLATELET COUNT 113 10^3/uL (150-450); RED BLOOD COUNT 4.06 10^6/uL (4.35-5.55); RED CELL DISTRIBUTION WIDTH 19.5 % (11.5-14.0); SEGMENTED NEUTROPHILS % (AUTO) 87.2 % (42-78); TOTAL CELLS COUNTED % (AUTO) 100 %; WHITE BLOOD COUNT 7.8 10^3/uL (4.0-10.5)
[2019-05-03] MEDS: ALBUMIN HUMAN 12.5 GM/50 ML RTUINJ IV SCH ×3 (20:30→21:33)
[2019-05-03] MEDS: LORAZEPAM INJ 2 MG/1 ML VIAL IV PRN (20:37)
[2019-05-03 20:54] LABS: BLOOD UREA NITROGEN 28 mg/dL (7-20); CALCIUM 8.6 mg/dL (8.4-10.2); GLUCOSE 84 mg/dL (75-110)
[2019-05-03 20:55] LABS: ANION GAP 10 (5-19); CARBON DIOXIDE 28 mmol/L (22-30); CHLORIDE 107 mmol/L (98-107)
[2019-05-03 21:01] LABS: POTASSIUM 2.9 mmol/L (3.6-5.0)
[2019-05-03] MEDS ORDERED: POTASSIUM CHLORIDE 20 MEQ PACKET PO ONE (22:00)
[2019-05-03] MEDS: MEROPENEM 500 MG in NORMAL SALINE 50 ML IV SCH (22:48)
[2019-05-03] MEDS: METOPROLOL TARTRATE 25 MG TABLET PO SCH ×2 (22:48→23:06)
[2019-05-03] MEDS: MIRTAZAPINE 15 MG TABLET PO SCH ×2 (22:48→23:06)
[2019-05-03] MEDS: ASPIRIN 81 MG TABLET, ENT COATED PO SCH ×2 (22:48→23:13)
[2019-05-03] MEDS: ATORVASTATIN CALCIUM 20 MG TABLET PO SCH ×2 (22:48→23:13)
[2019-05-04] MEDS: POTASSIUM CHLORIDE 20 MEQ/50 ML RTU IV SCH ×6 (00:31→17:28)
[2019-05-04] MEDS: RINGERS SOLUTION,LACTATED 1,000 ML IV PRN (04:36)
[2019-05-04 05:28] LABS: ABSOLUTE LYMPHOCYTES (AUTO) 0.6 10^3/uL (0.5-4.7); ABSOLUTE MONOCYTES (AUTO) 0.3 10^3/uL (0.1-1.4); ABSOLUTE NEUT (AUTO) 6.3 10^3/uL (1.7-8.2); BASOPHILS % (AUTO) 0.2 % (0-2); EOSINOPHILS % (AUTO) 0.1 % (0-6); HEMATOCRIT 40.3 % (37.9-51.0); LYMPHOCYTES % (AUTO) 8.4 % (13-45); MEAN CORPUSCULAR HEMOGLOBIN 32.4 pg (27.0-33.4); MEAN CORPUSCULAR HGB CONC 32.3 g/dL (32.0-36.0); MEAN CORPUSCULAR VOLUME 100 fl (80-97); MONOCYTES % (AUTO) 3.6 % (3-13); PLATELET COUNT 127 10^3/uL (150-450); RED BLOOD COUNT 4.02 10^6/uL (4.35-5.55); SEGMENTED NEUTROPHILS % (AUTO) 87.7 % (42-78); TOTAL CELLS COUNTED % (AUTO) 100 %; WHITE BLOOD COUNT 7.1 10^3/uL (4.0-10.5)
[2019-05-04 05:51] LABS: ALBUMIN 2.8 g/dL (3.5-5.0); ALKALINE PHOSPHATASE 96 U/L (38-126); ANION GAP 13 (5-19); ASPARTATE AMINO TRANSFERASE 23 U/L (17-59); BILIRUBIN,DIRECT 0.9 mg/dL (0.0-0.4); BILIRUBIN,TOTAL 1.3 mg/dL (0.2-1.3); BLOOD UREA NITROGEN 29 mg/dL (7-20); CALCIUM 8.6 mg/dL (8.4-10.2); CARBON DIOXIDE 25 mmol/L (22-30); CHLORIDE 109 mmol/L (98-107); GLUCOSE 74 mg/dL (75-110); POTASSIUM 3.6 mmol/L (3.6-5.0); TOTAL PROTEIN 6.4 g/dL (6.3-8.2)
[2019-05-04] MEDS ORDERED: PANTOPRAZOLE SODIUM 40 MG TABLET.DR PO SCH (06:00)
[2019-05-04] MEDS ORDERED: DEXTROSE 50%-WATER 25 GM/50 ML DISP.SYRIN IV ONE (07:34)
--- NOTE | 2019-05-04 07:37 | EKG REPORT ---
SEVERITY:- ABNORMAL ECG - ATRIAL FIBRILLATION LEFT ANTERIOR FASCICULAR BLOCK ANTERIOR INFARCT, OLD BORDERLINE T ABNORMALITIES, INFERIOR LEADS : Confirmed by: Jhony Gonzalez MD 04-May-2019 07:37:26
[2019-05-04] MEDS ORDERED: POTASSIUM CHLORIDE 20 MEQ PACKET PO SCH ×2 (08:00→10:00)
--- NOTE | 2019-05-04 08:46 | RADIOLOGY REPORT (SQ) ---
EXAM DESCRIPTION: CHEST SINGLE VIEW COMPLETED DATE/TIME: 05/04/2019 8:25 am REASON FOR STUDY: pulmonary edema vs pneumonia COMPARISON: 05/03/2019 EXAM PARAMETERS: NUMBER OF VIEWS: One view. TECHNIQUE: Single frontal radiographic view of the chest acquired. RADIATION DOSE: NA LIMITATIONS: Patient positioning FINDINGS: LUNGS AND PLEURA: Persistent patchy right mid and upper lung airspace disease. Additional patchy bibasilar opacities, not significantly changed from prior. Likely small bilateral effusions. No appreciable pneumothorax. . MEDIASTINUM AND HILAR STRUCTURES: Stable given rotation. HEART AND VASCULAR STRUCTURES: Enlarged and stable given positioning. BONES: No acute findings. Evidence multilevel thoracolumbar spondylosis. HARDWARE: None in the chest. OTHER: No other significant finding. IMPRESSION: Limited exam secondary to patient positioning. Unchanged cardiomegaly and bilateral perihilar and basilar opacities with small bilateral effusions. Findings may represent edema and/or infection. TECHNICAL DOCUMENTATION: JOB ID: [id number] [employer]- All Rights Reserved Reading location - IP/workstation name: [email or web address]
[2019-05-04] MEDS ORDERED: FUROSEMIDE 40 MG TABLET PO SCH (10:00)
[2019-05-04] MEDS ORDERED: ENOXAPARIN SODIUM INJ 40 MG/0.4 ML DISP.SYRIN SUBCUT SCH (10:00)
[2019-05-04] MEDS: METOPROLOL TARTRATE 25 MG TABLET PO SCH (10:01)
--- NOTE | 2019-05-04 10:40 | PDOC PROGRESS REPORT ---
Subjective Progress Note for:: 05/04/19 Subjective:: 05/04/2019 unable to assess secondary to patient mental status Reason For Visit: SEPSIS, CELLULITIS,ATRIAL FIBRILLATION, PULMONARY Physical Exam Vital Signs: Temp Pulse Resp BP Pulse Ox 98.1 F 114 H 12 88/59 L 96 05/04/19 07:24 05/04/19 08:58 05/04/19 08:58 05/04/19 07:24 05/04/19 08:58 Intake & Output 05/03/19 05/04/19 05/05/19 06:59 06:59 06:59 Intake Total 1237 Balance 1237 Weight 111.9 kg General appearance: PRESENT: severe distress, well-developed, well-nourished Respiratory exam: PRESENT: accessory muscle use, rhonchi, symmetrical, tachypnea, wheezes Cardiovascular exam: PRESENT: irregular rhythm, tachycardia Pulses: PRESENT: +1 pedal pulses bilateral Vascular exam: PRESENT: pallor GI/Abdominal exam: PRESENT: normal bowel sounds, soft. ABSENT: distended, guarding, mass, organolmegaly, rebound, tenderness Extremities exam: PRESENT: full ROM. ABSENT: calf tenderness, clubbing, pedal edema Neurological exam: PRESENT: other - Unable to assess secondary to critical nature of patient's disease Psychiatric exam: PRESENT: other - Unable to assess secondary to critical nature patient disease Skin exam: PRESENT: other - Cellulitis of the left upper extremity to the mid brachial area and open wound to the right lower extremity Results Laboratory Results: 05/04/19 04:50 05/04/19 04:50 05/03/19 05/03/19 05/03/19 09:54 09:54 10:30 WBC 8.1 RBC 4.04 L Hgb 12.9 L Hct 40.2 MCV 100 H MCH 32.0 MCHC 32.2 RDW 19.5 H Plt Count 121 L Seg Neutrophils % 79.1 H VBG pH VBG pCO2 VBG HCO3 VBG Base Excess Sodium 144.6 Potassium 3.4 L Chloride 106 Carbon Dioxide 28 Anion Gap 11 BUN 29 H Creatinine 1.69 H Est GFR ( Amer) 47 L Glucose 96 Lactic Acid 2.7 H Calcium 8.5 Magnesium 2.4 H Total Bilirubin 1.4 H AST 30 Alkaline Phosphatase 94 Total Protein 6.7 Albumin 2.7 L Urine Color Urine Appearance Urine pH Ur Specific [place] Urine Protein Urine Glucose (UA) Urine Ketones Urine Blood Urine Nitrite Ur Leukocyte Esterase Urine WBC (Auto) Urine RBC (Auto) 05/03/19 05/03/19 05/03/19 10:30 15:00 18:30 WBC RBC Hgb Hct MCV MCH MCHC RDW Plt Count Seg Neutrophils % VBG pH 7.35 VBG pCO2 50.5 VBG HCO3 27.2 VBG Base Excess 0.8 Sodium Potassium Chloride Carbon Dioxide Anion Gap BUN Creatinine Est GFR ( Amer) Glucose Lactic Acid 2.1 Calcium Magnesium Total Bilirubin AST Alkaline Phosphatase Total Protein Albumin Urine Color YELLOW Urine Appearance CLEAR Urine pH 5.0 Ur Specific [place] 1.012 Urine Protein 30 H Urine Glucose (UA) NEGATIVE Urine Ketones NEGATIVE Urine Blood MODERATE H Urine Nitrite NEGATIVE Ur Leukocyte Esterase NEGATIVE Urine WBC (Auto) 4 Urine RBC (Auto) 11 05/03/19 05/03/19 05/03/19 19:30 19:30 23:25 WBC 7.8 RBC 4.06 L Hgb 12.9 L Hct 39.9 MCV 98 H MCH 31.8 MCHC 32.4 RDW 19.5 H Plt Count 113 L Seg Neutrophils % 87.2 H VBG pH VBG pCO2 VBG HCO3 VBG Base Excess Sodium 145.0 Potassium 2.9 L* Chloride 107 Carbon Dioxide 28 Anion Gap 10 BUN 28 H Creatinine 1.60 H Est GFR ( Amer) 50 L Glucose 84 Lactic Acid 1.7 Calcium 8.6 Magnesium 2.3 Total Bilirubin AST Alkaline Phosphatase Total Protein Albumin Urine Color Urine Appearance Urine pH Ur Specific [place] Urine Protein Urine Glucose (UA) Urine Ketones Urine Blood Urine Nitrite Ur Leukocyte Esterase Urine WBC (Auto) Urine RBC (Auto) 05/04/19 05/04/19 05/04/19 04:50 04:50 04:50 WBC 7.1 RBC 4.02 L Hgb 13.0 L Hct 40.3 MCV 100 H MCH 32.4 MCHC 32.3 RDW 20.0 H Plt Count 127 L Seg Neutrophils % 87.7 H VBG pH VBG pCO2 VBG HCO3 VBG Base Excess Sodium 146.6 H Potassium 3.6 Chloride 109 H Carbon Dioxide 25 Anion Gap 13 BUN 29 H Creatinine 1.69 H Est GFR ( Amer) 47 L Glucose 74 L Lactic Acid 2.3 H Calcium 8.6 Magnesium 2.3 Total Bilirubin 1.3 AST 23 Alkaline Phosphatase 96 Total Protein 6.4 Albumin 2.8 L Urine Color Urine Appearance Urine pH Ur Specific [place] Urine Protein Urine Glucose (UA) Urine Ketones Urine Blood Urine Nitrite Ur Leukocyte Esterase Urine WBC (Auto) Urine RBC (Auto) 05/03/19 20:09 NT-Pro-B Natriuret Pep 05482 H Impressions: Abdomen/Pelvis CT 05/03/19 10:45 IMPRESSION: 1. There is a large, fat, fluid, and transverse colon containing midline ventral hernia, which is substantially enlarged compared to prior examination dated 01/01/2017. 2. There is a large, partially imaged small bowel and fluid containing right inguinal hernia, as seen on prior examination. 3. Somewhat shrunken and coarse contour of the liver, suggestive of chronic parenchymal liver disease. 4. Ascites, anasarca, and pleural effusions. 5. Diverticulosis. 6. Cardiomegaly and coronary artery disease. Chest X-Ray 05/04/19 08:00 IMPRESSION: Limited exam secondary to patient positioning. Unchanged cardiomegaly and bilateral perihilar and basilar opacities with small bilateral effusions. Findings may represent edema and/or infection. Assessment and Plan - Diagnosis (1) Sepsis due to cellulitis Is this a current diagnosis for this admission?: Yes Plan: 05/03/2019-the patient will receive IV fluids however we must be very mindful of his poor cardiac status. We will repeat his lactic acid levels. I have also administered albumin to try to help improve oncotic pressure. Will be monitored on telemetry. We may consider low-dose dopamine. An echocardiogram is pending to also see if there is any cardiogenic component to his clinical status at this time. 05/04/2019-patient remains on fluid secondary to sepsis protocol. Lactic acid this morning 2.7. Patient had a rapid response called first thing this a.m. as patient started having agonal breathing. Patient presentation and severity of disease at this time does not look favorable for patient. I discussed with Dr. Soliz and we are agrees that patient's best course of action at this time will be comfort measures. We will try to reach patient's son to determine this. Patient is DNR at this time we will continue current therapy until we have discussed with the patient's son. (2) Cellulitis Qualifiers: Site of cellulitis: extremity Site of cellulitis of extremity: lower extremity Laterality: right Qualified Code(s): L03.115 - Cellulitis of right lower limb Is this a current diagnosis for this admission?: Yes Plan: 05/03/2019-I will utilize meropenem for broad-spectrum coverage. It is likely that these ulcers have been present for a while. There is a follow odor. He also has marked onychomycosis and post discharge he should have an appointment with podiatry. 05/04/2019-see #1 (3) Acute on chronic systolic and diastolic heart failure, NYHA class 4 Is this a current diagnosis for this admission?: Yes Plan: 05/03/2019-an echocardiogram from 2 years ago showed an ejection fraction less than 20% with grade 2/4 diastolic failure. We will make his recovery that much more challenging. As noted above I will administer albumin. He needs fluid for sepsis and we will utilize furosemide as well. We will need to monitor his renal function, cardiac function and electrolytes. 05/04/2019-patient does have a ejection fraction less than 20% patient however remains in sepsis at this time. Patient remaining with IV fluids will follow and wait signs recognitions for comfort measures. (4) Pleural effusion Is this a current diagnosis for this admission?: Yes Plan: 05/03/2019-in order to treat the sepsis he will need aggressive fluids. This may worsen his pleural effusions which are likely cardiogenic. His poor albumin levels will also contribute. We will utilize a combination of albumin and diuresis and try to taper his fluids as soon as appropriate. 05/04/2019-continue to follow. Will make further regulation with patient's son (5) Pulmonary edema Qualifiers: Chronicity: acute Qualified Code(s): J81.0 - Acute pulmonary edema Is this a current diagnosis for this admission?: Yes Plan: 05/03/2019-pulmonary edema secondary to markedly decreased cardiac function. Unfortunately with the sepsis he will require at least short-term fluids. IV albumin should help oncotic pressure. Consider low-dose dopamine. X-ray interpretation suggested the possibility of pneumonia but I believe it is much more related to congestive failure. Antibiotic therapy for cellulitis will by default cover majority of pulmonary infections. 05/04/2019-see #1 (6) Chronic a-fib Is this a current diagnosis for this admission?: Yes Plan: 05/03/2019-we will add low-dose metoprolol to improve rate control. This may help the congestive failure which will help the pulmonary edema which may in turn help the pleural effusions. We will monitor the patient on telemetry. At this point he has a significant fall risk and so therapeutic anticoagulation will not be administered. 05/04/2019-in rapid rate at this time secondary to fluid overload from sepsis. Continue to follow make change plan of care based on recommendations and sons d etermination of comfort measures. (7) Acute and chronic respiratory failure with hypoxia Is this a current diagnosis for this admission?: Yes Plan: 05/03/2019-we will administer oxygen as required to keep his oxygen saturation between 90 and 94%. He has mixed disease likely secondary to smoking and his congestive heart failure. Nebulizers will be available as well. At this point I believe more of his failure is cardiogenic and so no systemic steroids will be employed at this time. 05/04/2019-exacerbated at this time. Patient on nonrebreather as he was satting in the 60s this morning on nasal cannula. (8) Acute renal failure Qualifiers: Acute renal failure type: with acute tubular necrosis Qualified Code(s): N17.0 - Acute kidney failure with tubular necrosis Is this a current diagnosis for this admission?: Yes Plan: 05/03/2019-acute kidney injury secondary to his cardiac failure with possible contributing factor of the infection causing sepsis. Aggressive IV fluids as noted above. We will monitor his kidney function as well as urine output. Because of the hernia and marked swelling of the scrotum and mons pubis it is been difficult to insert a Schmitz catheter. This will need to be done in an effort to monitor strict intake and output. 05/04/2019-persist. See #1 (9) Thrombocytopenia Is this a current diagnosis for this admission?: Yes Plan: 05/03/2019-most likely secondary to the infection. Continue to monitor the platelet count. If his platelets decreased then we will discontinue the DVT prophylaxis. 05/04/2019-see #1 (10) Inguinal hernia of right side without obstruction or gangrene Is this a current diagnosis for this admission?: Yes Plan: 05/03/2019-the hernia is contributing to the swelling in the mons pubis/scrotal area. There is also edema present. As noted above he is not a surgical candidate and we will monitor and hopefully avoid complication. If there is complication it will be treated conservatively. 05/04/2019-see #1 (11) Hypokalemia Is this a current diagnosis for this admission?: Yes Plan: 05/03/2019-correct low potassium and monitor electrolytes 05/04/2019-see #1 - Plan Summary Summary: 05/03/2019- Extremely complex picture. Aggressive hydration and treatment for the sepsis could certainly worsen the congestive heart failure with pulmonary edema and pleural effusion. Low albumin is also a contributing factor. Antibiotics, fluids, diuretics, and possible pressor therapy if needed. - Time Time Spent with patient: 25-34 minutes - Inpatient Certification Based on my medical assessment, after consideration of the patient's comorbidities, presenting symptoms, or acuity I expect that the services needed warrant INPATIENT care.: Yes I certify that my determination is in accordance with my understanding of Medicare's requirements for reasonable and necessary INPATIENT services [42 CFR 412.3e].: Yes Medical Necessity: Significant Comorbidiites Make Outpatient Treatment Too Risky, Need Close Monitoring Due to Risk of Patient Decompensation, Need For IV Fluids, Need for IV Antibiotics
--- NOTE | 2019-05-04 11:06 | PDOC PROGRESS REPORT ---
Subjective Progress Note for:: 05/04/19 Subjective:: I was asked to see the patient by the nurse practitioner Tanvir Morales. I admitted the patient yesterday for sepsis with likely complications of cellulitis in the leg and acute on chronic systolic and diastolic congestive heart failure. The patient is not doing well today. He is being evaluated for consideration to transition to a less aggressive treatment plan and eventually comfort measures only. Reason For Visit: SEPSIS, CELLULITIS,ATRIAL FIBRILLATION, PULMONARY Physical Exam Vital Signs: Temp Pulse Resp BP Pulse Ox 98.1 F 114 H 12 88/59 L 96 05/04/19 07:24 05/04/19 08:58 05/04/19 08:58 05/04/19 07:24 05/04/19 08:58 Intake & Output 05/03/19 05/04/19 05/05/19 06:59 06:59 06:59 Intake Total 1237 Balance 1237 Weight 111.9 kg General appearance: PRESENT: severe distress - The patient exhibits labored breathing. He appears slightly restless but is not responding to verbal stimuli.. ABSENT: cooperative - Unable to cooperate. Head exam: PRESENT: atraumatic, normocephalic Respiratory exam: PRESENT: accessory muscle use, decreased breath sounds, rales, symmetrical, tachypnea. ABSENT: rhonchi, wheezes Cardiovascular exam: PRESENT: irregular rhythm. ABSENT: diastolic murmur, systolic murmur Rectal exam: PRESENT: deferred Gentrourinary exam: ABSENT: indwelling catheter - Unable to mechanically insert a Schmitz catheter due to the marked swelling in the mons pubis and scrotal areas Neurological exam: ABSENT: alert, awake Psychiatric exam: PRESENT: agitated - Slightly agitated Focused psych exam: PRESENT: restlessness - Slightly restless Results Laboratory Results: 05/04/19 04:50 05/04/19 04:50 05/03/19 05/03/19 05/03/19 09:54 10:30 10:30 WBC RBC Hgb Hct MCV MCH MCHC RDW Plt Count Seg Neutrophils % VBG pH 7.35 VBG pCO2 50.5 VBG HCO3 27.2 VBG Base Excess 0.8 Sodium 144.6 Potassium 3.4 L Chloride 106 Carbon Dioxide 28 Anion Gap 11 BUN 29 H Creatinine 1.69 H Est GFR ( Amer) 47 L Glucose 96 Lactic Acid 2.7 H Calcium 8.5 Magnesium 2.4 H Total Bilirubin 1.4 H AST 30 Alkaline Phosphatase 94 Total Protein 6.7 Albumin 2.7 L Urine Color Urine Appearance Urine pH Ur Specific [place] Urine Protein Urine Glucose (UA) Urine Ketones Urine Blood Urine Nitrite Ur Leukocyte Esterase Urine WBC (Auto) Urine RBC (Auto) 05/03/19 05/03/19 05/03/19 15:00 18:30 19:30 WBC 7.8 RBC 4.06 L Hgb 12.9 L Hct 39.9 MCV 98 H MCH 31.8 MCHC 32.4 RDW 19.5 H Plt Count 113 L Seg Neutrophils % 87.2 H VBG pH VBG pCO2 VBG HCO3 VBG Base Excess Sodium Potassium Chloride Carbon Dioxide Anion Gap BUN Creatinine Est GFR ( Amer) Glucose Lactic Acid 2.1 Calcium Magnesium Total Bilirubin AST Alkaline Phosphatase Total Protein Albumin Urine Color YELLOW Urine Appearance CLEAR Urine pH 5.0 Ur Specific [place] 1.012 Urine Protein 30 H Urine Glucose (UA) NEGATIVE Urine Ketones NEGATIVE Urine Blood MODERATE H Urine Nitrite NEGATIVE Ur Leukocyte Esterase NEGATIVE Urine WBC (Auto) 4 Urine RBC (Auto) 11 05/03/19 05/03/19 05/04/19 19:30 23:25 04:50 WBC 7.1 RBC 4.02 L Hgb 13.0 L Hct 40.3 MCV 100 H MCH 32.4 MCHC 32.3 RDW 20.0 H Plt Count 127 L Seg Neutrophils % 87.7 H VBG pH VBG pCO2 VBG HCO3 VBG Base Excess Sodium 145.0 Potassium 2.9 L* Chloride 107 Carbon Dioxide 28 Anion Gap 10 BUN 28 H Creatinine 1.60 H Est GFR ( Amer) 50 L Glucose 84 Lactic Acid 1.7 Calcium 8.6 Magnesium 2.3 Total Bilirubin AST Alkaline Phosphatase Total Protein Albumin Urine Color Urine Appearance Urine pH Ur Specific [place] Urine Protein Urine Glucose (UA) Urine Ketones Urine Blood Urine Nitrite Ur Leukocyte Esterase Urine WBC (Auto) Urine RBC (Auto) 05/04/19 05/04/19 04:50 04:50 WBC RBC Hgb Hct MCV MCH MCHC RDW Plt Count Seg Neutrophils % VBG pH VBG pCO2 VBG HCO3 VBG Base Excess Sodium 146.6 H Potassium 3.6 Chloride 109 H Carbon Dioxide 25 Anion Gap 13 BUN 29 H Creatinine 1.69 H Est GFR ( Amer) 47 L Glucose 74 L Lactic Acid 2.3 H Calcium 8.6 Magnesium 2.3 Total Bilirubin 1.3 AST 23 Alkaline Phosphatase 96 Total Protein 6.4 Albumin 2.8 L Urine Color Urine Appearance Urine pH Ur Specific [place] Urine Protein Urine Glucose (UA) Urine Ketones Urine Blood Urine Nitrite Ur Leukocyte Esterase Urine WBC (Auto) Urine RBC (Auto) 05/03/19 20:09 NT-Pro-B Natriuret Pep 28200 H Impressions: Abdomen/Pelvis CT 05/03/19 10:45 IMPRESSION: 1. There is a large, fat, fluid, and transverse colon containing midline ventral hernia, which is substantially enlarged compared to prior examination dated 01/01/2017. 2. There is a large, partially imaged small bowel and fluid containing right inguinal hernia, as seen on prior examination. 3. Somewhat shrunken and coarse contour of the liver, suggestive of chronic parenchymal liver disease. 4. Ascites, anasarca, and pleural effusions. 5. Diverticulosis. 6. Cardiomegaly and coronary artery disease. Chest X-Ray 05/04/19 08:00 IMPRESSION: Limited exam secondary to patient positioning. Unchanged cardiomegaly and bilateral perihilar and basilar opacities with small bilateral effusions. Findings may represent edema and/or infection. Assessment and Plan - Diagnosis (1) Sepsis due to cellulitis Is this a current diagnosis for this admission?: Yes (2) Cellulitis Qualifiers: Site of cellulitis: extremity Site of cellulitis of extremity: lower extremity Laterality: right Qualified Code(s): L03.115 - Cellulitis of right lower limb Is this a current diagnosis for this admission?: Yes (3) Acute on chronic systolic and diastolic heart failure, NYHA class 4 Is this a current diagnosis for this admission?: Yes (4) Pleural effusion Is this a current diagnosis for this admission?: Yes (5) Pulmonary edema Qualifiers: Chronicity: acute Qualified Code(s): J81.0 - Acute pulmonary edema Is this a current diagnosis for this admission?: Yes (6) Chronic a-fib Is this a current diagnosis for this admission?: Yes (7) Acute and chronic respiratory failure with hypoxia Is this a current diagnosis for this admission?: Yes (8) Acute renal failure Qualifiers: Acute renal failure type: with acute tubular necrosis Qualified Code(s): N17.0 - Acute kidney failure with tubular necrosis Is this a current diagnosis for this admission?: Yes (9) Thrombocytopenia Is this a current diagnosis for this admission?: Yes (10) Ventral hernia Qualifiers: Obstruction and gangrene presence: without obstruction or gangrene Qualified Code(s): K43.9 - Ventral hernia without obstruction or gangrene Is this a current diagnosis for this admission?: Yes (11) Inguinal hernia of right side without obstruction or gangrene Is this a current diagnosis for this admission?: Yes (12) Hypokalemia Is this a current diagnosis for this admission?: Yes (13) Pneumonia involving right lung Qualifiers: Pneumonia type: due to unspecified organism Lung location: middle lobe of lung Qualified Code(s): J18.1 - Lobar pneumonia, unspecified organism Is this a current diagnosis for this admission?: Yes Plan: 05/04/2019-the right lung exhibits possible multi lobar pneumonia. Initially pulmonary edema was the leading consideration. This still could be pulmonary edema but there is been no improvement and possibly worsening of the chest x- ray. The patient is already on antibiotic therapy. In combination with his clinical decline the possibility of a pneumonia, possibly aspiration, is a reasonable consideration. - Plan Summary Summary: 05/03/2019- Extremely complex picture. Aggressive hydration and treatment for the sepsis could certainly worsen the congestive heart failure with pulmonary edema and pleural effusion. Low albumin is also a contributing factor. Antibiotics, fluids, diuretics, and possible pressor therapy if needed. 05/04/2019- After reviewing the patient today and discussing the patient with Tanvir Morales NP, the patient is not significantly better and in fact is worse today. His breathing is irregular and labored. He is unresponsive and lethargic. His lactic acid had improved but is trending up again. The increased difficulty breathing as well as the overall decline is worrisome. With his comorbidities and lack of response to treatment it is my belief that within reasonable medical certainty the efforts that we are providing will not result in patient recovery. I believe the patient's condition is terminal and ongoing aggressive therapy is futile at this point. I agree that comfort measures is a reasonable and recommended path to follow. I know we are trying to reach out to the patient's son Tanvir who I spoke to yesterday. If the patient were to have any further decline then an immediate transition to comfort measures would be recommended. Otherwise transitioning to comfort measures once the discussion with the patie tiffanie's son has occurred is my recommendation.
[2019-05-04] MEDS: MEROPENEM 500 MG in NORMAL SALINE 50 ML IV SCH (11:18)
[2019-05-04] MEDS: LORAZEPAM INJ 2 MG/1 ML VIAL IV PRN (11:18)
[2019-05-04] MEDS: MORPHINE SULFATE 10 MG/ML INJ IV PRN ×3 (14:23→21:25)
[2019-05-04] MEDS: ATROPINE SULFATE 1% OPH SOLN 5 ML BOTTLE SL PRN ×2 (17:54→21:26)
[2019-05-04 21:32] VITALS: BP 92/55
--- NOTE | 2019-05-04 23:46 | XCELERA REPORT ---
[address] [address] Transthoracic Echocardiogram Report Name: KATERINA FLORES Age: 79 yrs Gender: Male : 1940 Patient Status: Inpatient Patient Location: [address] [place], [place] [id number] Study Date: 05/03/2019 05:25 PM Height: 74 in Weight: 246 lb BSA: 2.4 m2 Procedure: A two-dimensional transthoracic echocardiogram with color flow and Doppler was performed. Study Quality: Technically suboptimal. Images were not obtained from all of the standard acoustic windows due to the limited scope of the study. Reason For Study: CARDIOMYOPATHY History: CARDIOMYOPATHY. Ordering Physician: PEBBLES SILVER Performed By: Dana Rosa Interpretation Summary Right side enlarged. Unable to obtain subcostals due to large mass on pt abdomen. The left ventricle is normal in size. There is normal left ventricular wall thickness. Left ventricular systolic function is low normal. LV EF is 55% The left ventricular wall motion is normal. Cannot assess ASD ,VSD , or PFO. The right ventricle is moderate to severely dilated. The right ventricular systolic function is moderately reduced. The right atrium is moderately dilated. The left atrium is mildly dilated. There is no evidence of mitral valve prolapse. There is no vegetation seen on the mitral valve. There is no mitral valve stenosis. There is a mild amount of mitral regurgitation There is no aortic valvular vegetation. There is no aortic valve stenosis There is aortic sclerosis without aortic stenosis. There is no LVOT obstruction. No aortic regurgitation is present. There is no tricuspid stenosis. There is a moderate amount of tricuspid regurgitation There is moderate pulmonary hypertension by echo RVSP is 56 mm of Hg , with RA mean of 10. There is no pulmonic valvular stenosis. There is a moderate amount of pulmonic regurgitation The aortic root is not well visualized. The inferior vena cava was not visualized There is no pericardial effusion. Moderate size left pleural effusion. MMode/2D Measurements & Calculations RVDd: 3.2 cm LVIDd: 5.6 cm FS: 19.3 % Ao root diam: 3.8 cm IVSd: 1.1 cm LVIDs: 4.5 cm EDV(Teich): 151.8 ml Ao root area: 11.1 cm2 LVPWd: 1.1 cm ESV(Teich): 92.1 ml LA dimension: 4.2 cm EF(Teich): 39.3 % Doppler Measurements & Calculations MV E max teddy: MV P1/2t max teddy: Ao V2 max: LV V1 max P.4 cm/sec 134.4 cm/sec 130.3 cm/sec 3.4 mmHg MV P1/2t: 52.6 msec Ao max PG: LV V1 max: MVA(P1/2t): 4.2 cm2 6.8 mmHg 92.8 cm/sec MV dec slope: 747.9 cm/sec2 MV dec time: 0.18 sec PA V2 max: PI end-d teddy: TR max teddy: MV P1/2t-pr_phl: 126.2 cm/sec 143.9 cm/sec 338.0 cm/sec 52.6 msec PA max P.4 mmHg TR max P.7 mmHg Left Ventricle The left ventricle is normal in size. There is normal left ventricular wall thickness. Left ventricular systolic function is low normal. LV EF is 55%. LV diastolic function could not be adequately assessed due to atrial fibrilation. The left ventricular wall motion is normal. Cannot assess ASD ,VSD , or PFO. Right Ventricle The right ventricle is moderate to severely dilated. The right ventricular systolic function is moderately reduced. Atria The right atrium is moderately dilated. The left atrium is mildly dilated. Mitral Valve There is no evidence of mitral valve prolapse. There is no vegetation seen on the mitral valve. There is no mitral valve stenosis. There is a mild amount of mitral regurgitation. Aortic Valve There is no aortic valvular vegetation. There is no aortic valve stenosis. There is aortic sclerosis without aortic stenosis. There is no LVOT obstruction. No aortic regurgitation is present. Tricuspid Valve There is no tricuspid stenosis. There is a moderate amount of tricuspid regurgitation. There is moderate pulmonary hypertension by echo. RVSP is 56 mm of Hg , with RA mean of 10. Pulmonic Valve There is no pulmonic valvular stenosis. There is a moderate amount of pulmonic regurgitation. Great Vessels The aortic root is not well visualized. The inferior vena cava was not visualized. Effusions There is no pericardial effusion. Moderate size left pleural effusion. : PEBBLES SILVER Lakshmi
[2019-05-05] MEDS ORDERED: POTASSIUM CHLORIDE 20 MEQ/50 ML RTU IV SCH
[2019-05-05] MEDS: MORPHINE SULFATE 10 MG/ML INJ IV PRN (02:23)
--- NOTE | 2019-05-05 09:41 | Death Summary ---
Summary Date : 05/05/19 Time of :: 04:00 Autopsy: No Resuscitation Status: Comfort Measures Only Primary Care Provider: Trevor Jaquez Consulting Provider: Tanvir Morales - Final Diagnosis (1) Sepsis due to cellulitis Is this a current diagnosis for this admission?: Yes (2) Cellulitis Is this a current diagnosis for this admission?: Yes (3) Acute on chronic systolic and diastolic heart failure, NYHA class 4 Is this a current diagnosis for this admission?: Yes (4) Pleural effusion Is this a current diagnosis for this admission?: Yes (5) Pulmonary edema Is this a current diagnosis for this admission?: Yes (6) Chronic a-fib Is this a current diagnosis for this admission?: Yes (7) Acute and chronic respiratory failure with hypoxia Is this a current diagnosis for this admission?: Yes (8) Acute renal failure Is this a current diagnosis for this admission?: Yes (9) Thrombocytopenia Is this a current diagnosis for this admission?: Yes (10) Inguinal hernia of right side without obstruction or gangrene Is this a current diagnosis for this admission?: Yes (11) Hypokalemia Is this a current diagnosis for this admission?: Yes Hospital Course:: Mr. Levin was a critically ill 79-year-old gentleman who presented to the ER after a long illness with sepsis, cellulitis, acute on chronic systolic and diastolic heart failure and acute renal failure. Patient was very noncompliant at home according to patient's son. Patient had an large inguinal hernia with bowel and fat and large umbilical hernia with bowel involvement. He also had multiple falls at home prior to presenting to the hospital with this terminal illness. Patient was found to be septic on arrival he is tachycardic, required oxygen therapy and had a bit elevated bilirubin and creatinine. Patient was also thrombocytopenic at that time. Patient's son made patient a DNR at the time of admission. The morning after his admission patient underwent a rapid response for periods of apnea. On nasal cannula at that time he was satting in the 60% range. Patient was placed on a nonrebreather and continued therapy. I had a long discussion with patient's son that afternoon and patient's son ultimately made patient comfort measures only. At that time I DC'd all of patient's treatments other than morphine Ativan and atropine for comfort. Patient sub-came to his disease process at 0 400 on 05/05/2019.
== END 2019-05-05 04:14 | disposition left against medical advice (07) | DRG 871 ==
LOC: ER 10:15 → EH 12:51 → 3W 15:24
PROVIDERS: ADMIT Hospitalist; ATTEND Hospitalist
DX: A41.9 Sepsis, unspecified organism (principal); J96.21 Acute and chronic respiratory failure with hypoxia; N17.0 Acute kidney failure with tubular necrosis; I50.43 Acute on chronic combined systolic (congestive) and diastolic (congestive) heart failure; J18.1 Lobar pneumonia, unspecified organism; L03.115 Cellulitis of right lower limb; I48.20 Chronic atrial fibrillation, unspecified; D69.6 Thrombocytopenia, unspecified; E87.6 Hypokalemia; K40.90 Unilateral inguinal hernia, without obstruction or gangrene, not specified as recurrent; K43.9 Ventral hernia without obstruction or gangrene; I11.0 Hypertensive heart disease with heart failure; F32.9 Major depressive disorder, single episode, unspecified; F17.210 Nicotine dependence, cigarettes, uncomplicated; Z66 Do not resuscitate
CPT/HCPCS: 36415; 51702; 71045; 74176; 80053; 81001; 82803; 82962; 83605; 83735; 83880; 85025; 85610; 87040; 87077; 87150; 87186; 93005; 93010; 93306; 99285; J1630; J2060; J2185; J2270; J3480; J3490; J7120; P9047